=== PATIENT | female | born 1945 | race Two or more races ===

== ENCOUNTER 2017-10-27 07:54 | Emergency (ER) | payer OTHER ==
[2017-10-27 08:11] VITALS: BP 111/65; PULSE 70; TEMP 98.1; BMI 29.2
[2017-10-27] MEDS ORDERED: ALBUTEROL SO4 0.083% IH SOL 2.5 MG/3 ML VIAL.NEB. NEB ONE ×2 (08:53→08:58)
--- NOTE | 2017-10-27 09:00 | PDOC ---
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 no chest pain no SOB. Timing/Duration: reports: week Severity: reports: moderate Past History - Past Medical History Allergies/Adverse Reactions: Allergies Allergy/AdvReac Type Severity Reaction Status Date / Time Sulfa (Sulfonamide Allergy Verified 10/27/17 08:04 Antibiotics) Home Medications: Ambulatory Orders Apixaban [Eliquis] 5 mg PO BID 12/18/15 Calcium Carbonate/Vitamin D3 [Calcium + Vitamin D Tablet] 1 each PO DAILY Cetirizine HCl [Zyrtec -] 10 mg PO PRN 12/18/15 Esomeprazole Magnesium [Nexium] 40 mg PO DAILY 12/18/15 Folic Acid 1 mg PO DAILY 12/18/15 Linaclotide [Linzess] 290 mcg PO DAILY 12/18/15 Metformin HCl 500 mg PO ACDIN 12/18/15 Metoprolol Succinate [Toprol Xl -] 50 mg PO DAILY 12/18/15 Pregabalin [Lyrica -] 225 mg PO BID 12/18/15 Solifenacin Succinate [Vesicare -] 10 mg PO DAILY 12/18/15 Valsartan/Hydrochlorothiazide [Valsartan-Hctz 160-12.5 mg Tab] 1 each PO DAILY 12/18/15 Ascorbic Acid [Vitamin C] 250 mg PO DAILY 01/23/16 Simvastatin 40 mg PO HS 01/23/16 Albuterol Sulfate Inhaler - [Ventolin HFA Inhaler -] 1 - 2 inh PO Q4H #1 inhaler 10/27/17 Anemia: No Cardiac Disorders: Yes (afib) COPD: No Diabetes: Yes Disorders: Yes HTN: Yes Hypercholesterolemia: Yes - Surgical History Cholecystectomy: Yes Orthopedic Surgery: Yes (SHOULDER SX RIGHT) - Immunization History Immunization Up to Date: Yes - Suicide/Smoking/Psychosocial Hx Smoking History: Never smoked Have you smoked in the past 12 months: No Information on smoking cessation initiated: No Hx Alcohol Use: No Drug/Substance Use Hx: No Substance Use Type: None Respiratory Specific PMHX - Complaint Specific PMHX Angina: No Bronchitis: No Pneumonia: No Pulmonary Embolus: No TB (Tuberculosis): No Review of Systems - Review of Systems Able to Perform ROS?: Yes Is the patient limited Honduran proficient: No Constitutional: No: Symptoms Reported HEENTM: Yes: Symptoms Reported, Throat Pain Respiratory: Yes: Symptoms reported, Cough *Physical Exam - Vital Signs Last Vital Signs Temp Pulse Resp BP Pulse Ox 98.1 F 70 20 111/65 95 10/27/17 08:04 10/27/17 08:04 10/27/17 08:04 10/27/17 08:04 10/27/17 08:04 - Physical Exam General Appearance: Yes: Nourished, Appropriately Dressed HEENT: positive: EOMI, ALE, TMs Normal, Pharynx Normal. negative: Scleral Icterus (L), Pharyngeal Erythema, Tonsillar Exudate, Tonsillar Erythema, Nasal Congestion Neck: positive: Supple Respiratory/Chest: positive: Lungs Clear, Normal Breath Sounds. negative: Decreased Breath Sounds, Crackles, Rales, Rhonchi, Stridor, Wheezing, Hyperresonant, Dullness Cardiovascular: positive: Regular Rhythm, Regular Rate Gastrointestinal/Abdominal: positive: Normal Bowel Sounds, Soft Musculoskeletal: positive: Normal Inspection Extremity: positive: Normal Capillary Refill, Normal Inspection, Normal Range of Motion Integumentary: positive: Normal Color, Dry, Warm Neurologic: positive: Fully Oriented, Alert, Normal Mood/Affect, Normal Response , Motor Strength 5/5 ED Treatment Course - RADIOLOGY Radiology Studies Ordered: Category Date Time Status CHEST PA & LAT [RAD] Stat Radiology 10/27/17 08:26 Ordered Medical Decision Making - Medical Decision Making 10/27/17 08:58 cc: cough for one week not improving with OTC meds pt called her PMD yesterday and she phoned in a Zpack which pt took first dose yesterday pt states the cough is worse at night and is having thick phlegm no acute distress, stable vitals with pulse ox 95 will get cxr to r/o pneumonia r/o CHF *DC/Admit/Observation/Transfer Diagnosis at time of Disposition: Viral upper respiratory tract infection with cough - Discharge Dispostion Disposition: HOME Condition at time of disposition: Good - Prescriptions Prescriptions: Albuterol Sulfate Inhaler - [Ventolin HFA Inhaler -] 1 - 2 inh PO Q4H #1 inhaler - Referrals Referrals: ON STAFF,NOT [Primary Care Provider] - - Patient Instructions Additional Instructions: use the inhaler as directed for coughing tea with honey and lemon lots of fluids to drink follow up with your doctor in 2-3 days Return to ER for any worsening symptoms use the inhaler as directed for coughing tea with honey and lemon lots of fluids to drink follow up with your doctor in 2-3 days Return to ER for any worsening symptoms - Post Discharge Activity
== END 2017-10-27 09:39 | disposition home or self-care (01) ==
LOC: JERFT 07:54
PROC: 3E0F7GC Introduction of Other Therapeutic Substance into Respiratory Tract, Via Natural or Artificial Opening (ICD-10-PCS; principal; 2017-10-27)
DX: J06.9 Acute upper respiratory infection, unspecified (principal); B97.89 Other viral agents as the cause of diseases classified elsewhere; I10 Essential (primary) hypertension; E11.9 Type 2 diabetes mellitus without complications; Z79.4 Long term (current) use of insulin; Z79.84 Long term (current) use of oral hypoglycemic drugs; I48.91 Unspecified atrial fibrillation; Z79.01 Long term (current) use of anticoagulants
CPT/HCPCS: 71046-TC-FY; 99281-25

== ENCOUNTER 2018-07-15 19:56 | Emergency (ER) | payer OTHER ==
[2018-07-15 20:22] VITALS: BP 144/65; PULSE 70; TEMP 99; BMI 32.5
--- NOTE | 2018-07-15 20:23 | PDOC ---
Rapid Medical Evaluation Chief Complaint: Respiratory Time Seen by Provider: 07/15/18 20:18 Medical Evaluation: Allergies Allergy/AdvReac Type Severity Reaction Status Date / Time Sulfa (Sulfonamide Allergy Verified 10/27/17 08:04 Antibiotics) 07/15/18 20:19 c/o cough and chest pain x 2 weeks. denies fever/ chills breath sounds clear, regular rate hx: DM, htn, A: cough P: chest xray patient to the ER for further management of care. Discharge Disposition - Diagnosis URI (upper respiratory infection) Qualifiers: URI type: unspecified URI Qualified Code(s): J06.9 - Acute upper respiratory infection, unspecified - Referrals - Patient Instructions - Post Discharge Activity
[2018-07-15] MEDS ORDERED: ALBUTEROL SO4 2.5/IPRATROPIUM 0.5 INH SOL 3 ML VIAL.NEB. NEB ONE ×2 (21:02→21:06)
--- NOTE | 2018-07-15 21:06 | PDOC ---
History of Present Illness - General Chief Complaint: Respiratory Stated Complaint: Cold Symptoms Time Seen by Provider: 07/15/18 20:18 History Source: Patient Exam Limitations: No Limitations - History of Present Illness Initial Comments: 07/15/18 21:03 c/o cough phlegm in throat for 1-2 weeks no fever no chills no chest pain, no history of asthma history of DM< pacemaker, HTN Timing/Duration: reports: constant (2 weeks cough ) Severity: reports: moderate Past History - Past Medical History Allergies/Adverse Reactions: Allergies Allergy/AdvReac Type Severity Reaction Status Date / Time Sulfa (Sulfonamide Allergy Verified 10/27/17 08:04 Antibiotics) Home Medications: Ambulatory Orders Apixaban [Eliquis] 5 mg PO BID 12/18/15 Calcium Carbonate/Vitamin D3 [Calcium + Vitamin D Tablet] 1 each PO DAILY Cetirizine HCl [Zyrtec -] 10 mg PO PRN 12/18/15 Esomeprazole Magnesium [Nexium] 40 mg PO DAILY 12/18/15 Folic Acid 1 mg PO DAILY 12/18/15 Linaclotide [Linzess] 290 mcg PO DAILY 12/18/15 Metoprolol Succinate [Toprol Xl -] 50 mg PO DAILY 12/18/15 Pregabalin [Lyrica -] 225 mg PO BID 12/18/15 Solifenacin Succinate [Vesicare -] 10 mg PO DAILY 12/18/15 Valsartan/Hydrochlorothiazide [Valsartan-Hctz 160-12.5 mg Tab] 1 each PO DAILY 12/18/15 metFORMIN HCL [Metformin HCl] 500 mg PO ACDIN 12/18/15 Ascorbic Acid [Vitamin C] 250 mg PO DAILY 01/23/16 Simvastatin 40 mg PO HS 01/23/16 Albuterol Sulfate Inhaler - [Ventolin HFA Inhaler -] 1 - 2 inh PO Q4H #1 inhaler 10/27/17 levoFLOXacin [Levaquin -] 500 mg PO DAILY #7 tablet 07/15/18 Anemia: No Cardiac Disorders: Yes (afib) COPD: No Diabetes: Yes Disorders: Yes HTN: Yes Hypercholesterolemia: Yes - Surgical History Cholecystectomy: Yes Orthopedic Surgery: Yes (SHOULDER SX RIGHT) - Immunization History Immunization Up to Date: Yes - Suicide/Smoking/Psychosocial Hx Smoking History: Never smoked Have you smoked in the past 12 months: No Information on smoking cessation initiated: No Hx Alcohol Use: No Drug/Substance Use Hx: No Substance Use Type: None Respiratory Specific PMHX - Complaint Specific PMHX Angina: No Bronchitis: No Pneumonia: No Pulmonary Embolus: No TB (Tuberculosis): No Review of Systems - Review of Systems Able to Perform ROS?: Yes Is the patient limited Malay proficient: Yes Constitutional: No: Symptoms Reported HEENTM: Yes: Other (post nasal drip ). No: Symptoms Reported Respiratory: Yes: Symptoms reported, Cough, Productive cough. No: Wheezing Cardiac (ROS): No: Symptoms Reported *Physical Exam - Vital Signs Last Vital Signs Temp Pulse Resp BP Pulse Ox 99.0 F 70 18 144/65 97 07/15/18 20:20 07/15/18 20:20 07/15/18 20:20 07/15/18 20:20 07/15/18 20:20 - Physical Exam General Appearance: Yes: Nourished, Appropriately Dressed HEENT: positive: EOMI, ALE, Normal ENT Inspection, TMs Normal, Pharynx Normal Neck: positive: Supple. negative: Tender Respiratory/Chest: positive: Decreased Breath Sounds. negative: Chest Tender, Respiratory Distress, Wheezing Cardiovascular: positive: Regular Rhythm, Regular Rate Musculoskeletal: positive: Normal Inspection Extremity: positive: Normal Capillary Refill, Normal Inspection, Normal Range of Motion Integumentary: positive: Normal Color, Dry, Warm Neurologic: positive: associate doctor II-XII NML intact, Fully Oriented, Alert, Normal Mood/ Affect, Normal Response, Motor Strength 5/5 Medical Decision Making - Medical Decision Making 07/15/18 21:04 cc: cough 2 weeks using otc cough medicine and albuterol pump no relief feels thick phlegm in back of throat pt not improving after the albuterol pump pt is speaking full sentences no diff speaking pt has history of DM, pacemaker denies chest pain will give duoneb 07/15/18 22:11 pt improved after the nebulizer. 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 pt satisfied with care all questions asked and answered, pt stable for discharge. 07/18/18 08:50 *DC/Admit/Observation/Transfer Diagnosis at time of Disposition: URI (upper respiratory infection) Qualifiers: URI type: unspecified URI Qualified Code(s): J06.9 - Acute upper respiratory infection, unspecified - Discharge Dispostion Disposition: HOME Condition at time of disposition: Good - Prescriptions Prescriptions: levoFLOXacin [Levaquin -] 500 mg PO DAILY #7 tablet - Referrals - Patient Instructions Printed Discharge Instructions: DI for Acute Bronchitis Additional Instructions: take the antibiotic Levaquin as directed continue the pump every 4hrs follow with your doctor on Wednesday for follow up return to ER if any worsening symptoms drink pleanty of water - Post Discharge Activity
== END 2018-07-15 22:14 | disposition home or self-care (01) ==
LOC: JERFT 19:56
PROC: 3E0F7GC Introduction of Other Therapeutic Substance into Respiratory Tract, Via Natural or Artificial Opening (ICD-10-PCS; principal; 2018-07-15)
DX: J06.9 Acute upper respiratory infection, unspecified (principal); I10 Essential (primary) hypertension; E11.9 Type 2 diabetes mellitus without complications; Z79.84 Long term (current) use of oral hypoglycemic drugs; I48.91 Unspecified atrial fibrillation; Z79.01 Long term (current) use of anticoagulants
CPT/HCPCS: 71046-TC-FY; 94640; 99281-25

== ENCOUNTER 2018-07-29 01:01 | Observation (INO) | payer OTHER ==
[2018-07-29] MEDS ORDERED: MAG HYDROX/AL HYDROX/SIMETH 30 ML UNIT-DOSE CUP PO ONE (01:24)
[2018-07-29] MEDS ORDERED: FAMOTIDINE 20 MG/50 ML IVPB 20 MG/50 ML MG IVPB ONE ×2 (01:24→01:44)
--- NOTE | 2018-07-29 01:28 | PDOC ---
History of Present Illness - General History Source: Patient Exam Limitations: Language Barrier ([employer] Worker used) - History of Present Illness Initial Comments: 73 y/o F hx of HTN, HLD, DM, afib s/p PPM (on Eliquis), cholecystectomy (around 12 years ago), hysterectomy 1996, prior L shoulder surgery presents with epigastric pain radiating to chest that started 2 hours ago as she was about to take her meds. States she feels a bit bloated; took Naa [place] prior to coming and currently feels a bit better than before. Denies ever having this type of pain before; denies intake of large meal recently. +Nausea. Denies fever , chills, cough, sob, vomiting, diarrhea, black/bloody stools, urinary complaints. Has chronic constipation for which she takes Metamucil. Denies smoking, alcohol or drug use. Denies history of [place] or CAD. 07/29/18 01:27 <Desirae Mena - Last Filed: 07/29/18 03:32> <Kaylan Ferrell - Last Filed: 07/29/18 05:02> - General Chief Complaint: Chest Pain Stated Complaint: CHEST PAIN Time Seen by Provider: 07/29/18 01:06 Past History - Past Medical History Anemia: No Cardiac Disorders: Yes (afib) COPD: No Diabetes: Yes Disorders: Yes HTN: Yes Hypercholesterolemia: Yes - Surgical History Cholecystectomy: Yes Orthopedic Surgery: Yes (SHOULDER SX Left) Other Surgical History: Hysterectomy 07/29/18 01:34 - Immunization History Immunization Up to Date: Yes - Suicide/Smoking/Psychosocial Hx Smoking History: Never smoked Have you smoked in the past 12 months: No Information on smoking cessation initiated: No Hx Alcohol Use: No Drug/Substance Use Hx: No Substance Use Type: None <Desirae Mena - Last Filed: 07/29/18 03:32> <Kaylan Ferrell - Last Filed: 07/29/18 05:02> - Past Medical History Allergies/Adverse Reactions: Allergies Allergy/AdvReac Type Severity Reaction Status Date / Time Sulfa (Sulfonamide Allergy Verified 07/29/18 01:20 Antibiotics) Home Medications: Ambulatory Orders Apixaban [Eliquis] 5 mg PO BID 12/18/15 Calcium Carbonate/Vitamin D3 [Calcium + Vitamin D Tablet] 1 each PO DAILY Cetirizine HCl [Zyrtec -] 10 mg PO PRN 12/18/15 Esomeprazole Magnesium [Nexium] 40 mg PO DAILY 12/18/15 Folic Acid 1 mg PO DAILY 12/18/15 Linaclotide [Linzess] 290 mcg PO DAILY 12/18/15 Metoprolol Succinate [Toprol Xl -] 50 mg PO DAILY 12/18/15 Pregabalin [Lyrica -] 225 mg PO BID 12/18/15 Solifenacin Succinate [Vesicare -] 10 mg PO DAILY 12/18/15 Valsartan/Hydrochlorothiazide [Valsartan-Hctz 160-12.5 mg Tab] 1 each PO DAILY 12/18/15 metFORMIN HCL [Metformin HCl] 500 mg PO ACDIN 12/18/15 Ascorbic Acid [Vitamin C] 250 mg PO DAILY 01/23/16 Simvastatin 40 mg PO HS 01/23/16 Albuterol Sulfate Inhaler - [Ventolin HFA Inhaler -] 1 - 2 inh PO Q4H #1 inhaler 10/27/17 levoFLOXacin [Levaquin -] 500 mg PO DAILY #7 tablet 07/15/18 Review of Systems - Review of Systems Comments:: See HPI 07/29/18 01:34 <Desirae Mena - Last Filed: 07/29/18 03:32> *Physical Exam - Vital Signs Last Vital Signs Temp Pulse Resp BP Pulse Ox 98.0 F 70 20 154/81 98 07/29/18 01:05 07/29/18 01:05 07/29/18 01:05 07/29/18 01:05 07/29/18 01:05 - Physical Exam General Appearance: No: Apparent Distress Respiratory/Chest: positive: Lungs Clear, Normal Breath Sounds. negative: Respiratory Distress Cardiovascular: positive: Regular Rhythm, Regular Rate, S1, S2. negative: Murmur Gastrointestinal/Abdominal: positive: Normal Bowel Sounds, Tender (Mild TTP along epigastric region), Soft, Other (Negative Cruz's Sign). negative: Increased Bowel Sounds, Decreased BS, Distended, Guarding, Rebound Extremity: positive: Normal Inspection. negative: Pedal Edema, Calf Tenderness Neurologic: positive: Fully Oriented, Alert, Normal Mood/Affect <Desirae Mena - Last Filed: 07/29/18 03:32> - Vital Signs Last Vital Signs Temp Pulse Resp BP Pulse Ox 98.0 F 70 20 154/81 98 07/29/18 01:05 07/29/18 01:05 07/29/18 01:05 07/29/18 01:05 07/29/18 01:05 <Kaylan Ferrell - Last Filed: 07/29/18 05:02> Heart Score/ECG Review - History History: Moderately suspicious - Electrocardiogram EKG: Normal - Age Age: >/= 65 - Risk Factors Risk Factors Heart Score: Yes Hx Hypercholesterolemia, Yes Hx Hypertension, Yes Hx Diabetes Based on the list above the patient has:: >/=3 risk factors or Hx atherosclerotic disease - Troponin Troponin: </= normal limit - Score Heart Score - Total: 5 #1 Atrial paced rhythm at 70 bpm, TWI lead III (seen in prior EKG 12/2010) 07/29/18 01:54 <Desirae Mena - Last Filed: 07/29/18 03:32> ED Treatment Course - LABORATORY CBC & Chemistry Diagram: 07/29/18 02:05 07/29/18 02:05 - RADIOLOGY Radiology Studies Ordered: Category Date Time Status CHEST PA & LAT [RAD] Stat Radiology 07/29/18 01:24 Ordered <Desirae Mena - Last Filed: 07/29/18 03:32> - LABORATORY CBC & Chemistry Diagram: 07/29/18 02:05 07/29/18 02:05 - Medications Given in the ED: ED Medications Discontinued Medications Generic Name Dose Route Start Last Admin Trade Name Yvonne PRN Reason Stop Dose Admin Al Hydroxide/Mg Hydroxide 30 ml 07/29/18 01:24 07/29/18 01:52 Mylanta Oral Suspension - PO 07/29/18 01:25 30 ml ONCE ONE Administration Famotidine/Sodium Chloride 20 mg in 50 mls @ 100 mls/hr 07/29/18 01:24 01:52 Pepcid 20 Mg Premixed Ivpb - IVPB 07/29/18 01:53 100 mls/hr ONCE ONE Administration Ondansetron HCl 4 mg 07/29/18 01:41 07/29/18 01:56 Zofran Injection IVPUSH 07/29/18 01:42 4 mg ONCE ONE Administration <Kaylan Ferrell - Last Filed: 07/29/18 05:02> Medical Decision Making - Medical Decision Making 73 y/o F hx of HTN, HLD, DM, afib s/p PPM (on Eliquis), cholecystectomy ( around 12 years ago), hysterectomy 1996, prior L shoulder surgery presents with epigastric pain radiating to chest x 2 hours. Differential to consider: ACS, gastritis, GERD, cholecystitis (though unlikely given hx of cholecystectomy), pancreatitis, PNA (less likely given no fever, cough or other URI sxs) Plan: CBC, CMP, lipase, trop, EKG, CXR, Pepcid, Maalox, Zofran Patient with significant co-morbidities; will likely need observation for r/o ACS 07/29/18 01:27 Abnormal Lab Results 07/29/18 02:05 Carbon Dioxide 33 H Anion Gap 7 L BUN 24 H AST 61 H Lab work unremarkable with trop x1 neg CXR with no acute findings Patient with heart score of 5 Will admit as observation to r/o ACS Plan of care discussed with patient 07/29/18 03:28 <Desirae Mena - Last Filed: 07/29/18 03:32> - Medical Decision Making The patient was seen and evaluated in conjunction with midlevel provider under my direct supervision, ancillary studies were reviewed. 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 vitals wnl, labs and lytes wnl Trop_negative initially, will need to trend serially since onset of sx <3 hours ECG NSR, with unchanged nonspecific T wave abnormalities in inferolateral leads. no elevations or interval abnormalities heart score 5, in moderate risk category with estimated MACE 14-16% at 30 days. due to atypical nature, risk factors and comorbidities, will admit to observation telemetry for r/o acs and continued medical management. given GI cocktail w/o effect. IVF and ASA . 07/29/18 02:05 07/29/18 03:06 07/29/18 05:02 <Kaylan Ferrell - Last Filed: 07/29/18 05:02> *DC/Admit/Observation/Transfer - Discharge Dispostion Decision to Admit order: Yes <Desirae Mean - Last Filed: 07/29/18 03:32> <Kaylan Ferrell - Last Filed: 07/29/18 05:02> Diagnosis at time of Disposition: Chest pain in adult
[2018-07-29 01:38] VITALS: BMI 30.5
[2018-07-29] MEDS ORDERED: ONDANSETRON 4 MG/2 ML VIAL IVPUSH ONE (01:41)
[2018-07-29] MEDS ORDERED: MAG HYDROX/AL HYDROX/SIMETH 30 ML UNIT-DOSE CUP ONE (01:45)
[2018-07-29] MEDS ORDERED: ONDANSETRON 4 MG/2 ML VIAL ONE (01:53)
[2018-07-29 02:15] LABS: BASO % 0.5 % (0-2.0); EOS % 0.7 % (0-4.5); HEMOGLOBIN 13.7 GM/dL (10.7-15.3); LYMPH % 14.4 % (8-40); MCH 27.1 pg (25.7-33.7); MCHC 32.5 g/dl (32.0-36.0); MEAN CELL VOLUME 83.2 fl (80-96); MEAN PLT VOLUME 9.7 fl (7.5-11.1); MONO % 9.5 % (3.8-10.2); NEUT % 74.9 % (42.8-82.8); PLATELET COUNT 190 K/MM3 (134-434); RBC 5.05 M/mm3 (3.60-5.2); RDW 15.2 % (11.6-15.6); WHITE BLOOD COUNT 9.4 K/mm3 (4.0-10.0)
[2018-07-29 02:48] LABS: ALK PHOS 98 U/L (45-117); ANION GAP 7 MMOL/L (8-16); BILIRUBIN,TOTAL 0.4 mg/dL (0.2-1); BLOOD UREA NITROGEN 24 mg/dL (7-18); CALCIUM 9.2 mg/dL (8.5-10.1); CHLORIDE 100 mmol/L (98-107); CO2 33 mmol/L (21-32); CREATININE 0.8 mg/dL (0.55-1.3); GLUCOSE,RANDOM 100 mg/dL (74-106); POTASSIUM 4.2 mmol/L (3.5-5.1); SGOT/AST 61 U/L (15-37); SGPT/ALT 37 U/L (13-61); SODIUM 140 mmol/L (136-145); TOT PROT 7.9 g/dl (6.4-8.2)
[2018-07-29] MEDS ORDERED: ASPIRIN 325 MG TABLET PO ONE (03:00)
[2018-07-29] MEDS ORDERED: SODIUM CHLORIDE 0.9% 500 ML INFUS.BAG IV ONE (03:01)
[2018-07-29] MEDS ORDERED: ASPIRIN 325 MG TABLET ONE (03:04)
[2018-07-29] MEDS ORDERED: ASPIRIN COATED 81 MG TABLET.EC ONE (03:11)
[2018-07-29] MEDS ORDERED: ASPIRIN 81 MG CHEWABLE TABLETS PO ONE (03:52)
--- NOTE | 2018-07-29 04:53 | HP ---
CHIEF COMPLAINT: Epigastric/Chest pain x 1 day PCP: Dr Meryl Luevano (PCP and cardiol)- [phone] [facility] [place] [facility] [place] Add: [address] ([address] [facility] [address]) Dr Karen Leach- [phone] [facility] HISTORY OF PRESENT ILLNESS: Pt is a 73 y/o Somali speaking F with PMhx of HTN, HLD, DM, ventricular arrythmia, afib s/p PPM (on Eliquis),anxiety, allergic rhinitis, cholecystectomy (around 12 years ago), hysterectomy 1996, prior L shoulder surgery presenting with epigastric pain radiating to chest and back for one day. Pt describes the pain as 10/0 severe, constant, radiating from upper abdomen to chest and back with associated warmth, she used a hand fan to cool herself. The pain started at rest, while she was sitting down taking her medicines and worsened as she walked to the bathroom. The pain lasted half an hour, is not reproducible and it was mildly relieved with colt seltzer at home, but in the the ambulance she received antacid that started to improve the pain. Pt reports that the pain resolved after she received medication in the ED. No fevers, no diaphoresis No nausea/vomiting, no diarrhea, but pt has chronic constipation secondary to hemorrhoids. Pt reports she has not had similar pain in past, but got a PPM put in 8years ago by cardiol ( Dr Luevano) for arrythmias (afib). No CAD, no CABG. She reports having done a stress test about 3 months ago at [facility] with normal results (on calling the PCP's office, her last stress test was 2015). She is able to walk up to 3 blocks before she becomes short of breath or has bilateral tingling in both feet. No syncope or dizziness. She has chronic 2 pillow orthopnea, with worsening dyspnea on exertion and cough productive of whitish sputum. She reports bilateral leg swellings Pt reports being compliant on all her medications although she did not have a list on her. Pt has been diagnosed with a likely gastritis in the past for which she uses nexium but does not recall getting antibiotic treatment for a peptic ulcer. She said she had both endoscopy and colonoscopy with her GI 3 years ago with colonoscopy being normal. No family history of malignancies Pt complained in the ED of increased anxiety and was requesting anxiolytics. ER course was notable for: (1) ASA, GI cocktail, lipase- 223 (2)negative trop x1, (3) EKG- Atrial paced-70bpm, MS-212, Qtc-451,no JEAN-PAUL/STD (similar to prior) Recent Travel: PAST MEDICAL HISTORY: HTN, HLD, DM, afib s/p PPM (on Eliquis) PAST SURGICAL HISTORY: cholecystectomy (around 12 years ago), hysterectomy 1996, prior L shoulder surgery, urologic procedure Social History: Independent ADLS but with a home health aide. Walks without a walker Lives at home with . 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 Smoking:Denies Alcohol:Denies Drugs: Denies Family History: Sister of DM in her 60s, mother of unknown weakness at 67, father at 100 Allergies Sulfa (Sulfonamide Antibiotics) Allergy (Verified 07/29/18 01:20) HOME MEDICATIONS: Home Medications Medication Instructions Recorded Apixaban [Eliquis] 5 mg PO BID 12/18/15 Calcium Carbonate/Vitamin D3 1 each PO DAILY 12/18/15 [Calcium + Vitamin D Tablet] Cetirizine HCl [Zyrtec -] 10 mg PO PRN 12/18/15 Esomeprazole Magnesium [Nexium] 40 mg PO DAILY 12/18/15 Folic Acid 1 mg PO DAILY 12/18/15 Linaclotide [Linzess] 290 mcg PO DAILY 12/18/15 Metoprolol Succinate [Toprol Xl -] 50 mg PO DAILY 12/18/15 Pregabalin [Lyrica -] 225 mg PO BID 12/18/15 Solifenacin Succinate [Vesicare -] 10 mg PO DAILY 12/18/15 Valsartan/Hydrochlorothiazide 1 each PO DAILY 12/18/15 [Valsartan-Hctz 160-12.5 mg Tab] metFORMIN HCL [Metformin HCl] 500 mg PO ACDIN 12/18/15 Ascorbic Acid [Vitamin C] 250 mg PO DAILY 01/23/16 Simvastatin 40 mg PO HS 01/23/16 Albuterol Sulfate Inhaler - 1 - 2 inh PO Q4H #1 inhaler 10/27/17 [Ventolin HFA Inhaler -] levoFLOXacin [Levaquin -] 500 mg PO DAILY #7 tablet 07/15/18 REVIEW OF SYSTEMS CONSTITUTIONAL: Absent: fever, chills, diaphoresis, generalized weakness, malaise, loss of appetite, weight change HEENT: Absent: rhinorrhea, nasal congestion, throat pain, throat swelling, difficulty swallowing, mouth swelling, ear pain, eye pain, visual changes CARDIOVASCULAR: Absent: chest pain, syncope, palpitations, irregular heart rate, lightheadedness , peripheral edema RESPIRATORY: Absent: cough, shortness of breath+, dyspnea with exertion+, orthopnea+, wheezing, stridor, hemoptysis GASTROINTESTINAL: Absent: abdominal pain+, abdominal distension, nausea, vomiting, diarrhea, constipation+, melena, hematochezia GENITOURINARY: Absent: dysuria, frequency, urgency, hesitancy, hematuria, flank pain, genital pain MUSCULOSKELETAL: Absent: myalgia, arthralgia, joint swelling, back pain+, neck pain SKIN: Absent: rash, itching, pallor HEMATOLOGIC/IMMUNOLOGIC: Absent: easy bleeding, easy bruising, lymphadenopathy, frequent infections ENDOCRINE: Absent: unexplained weight gain, unexplained weight loss, heat intolerance, cold intolerance NEUROLOGIC: Absent: headache, focal weakness or paresthesias, dizziness, unsteady gait, seizure, mental status changes, bladder or bowel incontinence PSYCHIATRIC: Absent: anxiety, depression, suicidal or homicidal ideation, hallucinations. PHYSICAL EXAMINATION Vital Signs - 24 hr 07/29/18 01:05 Temperature 98.0 F Pulse Rate 70 Respiratory 20 Rate Blood Pressure 154/81 O2 Sat by Pulse 98 Oximetry (%) GENERAL: Obese female, Awake, alert, and fully oriented, in no acute repiratory or painful distress. HEAD: Normal with no signs of trauma. EYES: Pupils equal, round and reactive to light, EARS, NOSE, THROAT: Moist mucous membranes. NECK: Normal range of motion, supple without lymphadenopathy LUNGS: Breath sounds equal, clear to auscultation bilaterally. No wheezes, and no crackles. HEART: Regular rate and rhythm, normal S1 and S2 without murmur, rub or gallop. ABDOMEN: Soft, nontender, not distended, normoactive bowel sounds, no guarding, no rebound, no masses. Questionable positive murphys sign, epigastric tenderness MUSCULOSKELETAL: Normal range of motion at all joints. No bony deformities or tenderness. No CVA tenderness. LOWER EXTREMITIES: 2+ pulses, warm, well-perfused. No calf tenderness. No peripheral edema. NEUROLOGICAL: Symmetrical face. Extension and flexion, abduction and adduction 5/5. b/l UEs. Hip and knee flexion and extension 5/5 b/lCranial nerves II-XII intact. Normal speech. Normal gait. CBC, BMP 07/29/18 02:05 Laboratory Results - last 24 hr 07/29/18 07/29/18 07/29/18 02:05 02:05 02:05 WBC 9.4 RBC 5.05 Hgb 13.7 Hct 42.0 MCV 83.2 MCH 27.1 MCHC 32.5 RDW 15.2 Plt Count 190 MPV 9.7 Absolute Neuts (auto) 7.0 Neutrophils % 74.9 Lymphocytes % 14.4 Monocytes % 9.5 Eosinophils % 0.7 Basophils % 0.5 Nucleated RBC % 0 Sodium 140 Potassium 4.2 Chloride 100 Carbon Dioxide 33 H Anion Gap 7 L BUN 24 H Creatinine 0.8 Creat Clearance w eGFR > 60 Random Glucose 100 Calcium 9.2 Total Bilirubin 0.4 AST 61 H ALT 37 Alkaline Phosphatase 98 Troponin I < 0.02 Total Protein 7.9 Albumin 4.0 Lipase 223 ASSESSMENT/PLAN: Pt is a 73 y/o Somali speaking F with PMhx of HTN, HLD, DM, afib s/p PPM (on Eliquis), cholecystectomy (around 12 years ago), hysterectomy 1996, prior L shoulder surgery presenting with epigastric pain radiating to chest and back for one day. Atypical chest pain could be unstable angina Patient with significant risk factors, Dual PPM Pt had reported recent stress test with Hydrogeology Professor-Likely nl per pt (PCP said last stress test was 3 years ago), Consider outpt stress test if ACS ruled out Heart score -4 Retrieve records from landfill gas technician- information on top Med rec ASA, ECHO, EKG, trend trops, Statins, [id number] Cont toprol 50 daily Consider cardiology consult although pt follows with own cardiol Please confoirm meds in am (tried twice overnight)- Contacted her PCP's office eventaully to Med rec her Epigastric pain Hx of likely gastritis in past s/p cholecystectomy, isolated elevated alk ph Follow up US R/o acalculus cholecystitis- pt appears stable Hx of gastritis Follow up GI doctor Iv protonix HTN Cont [id number] Cont toprol 50 daily HLD Pt appears to use simvastatin at home Cont atorvastatin DM Hold metformin ISS ACHS BGM Achs Ventricular arrythmias/ afib s/p dual chamber PPM (on Eliquis) Rate controlled, dual paced Card unavailable for interrogation- could follow Reported anxiety Consider anxiolytic PCPs office did not have a prescribed anxiolytic documented for pt FEN S/p 1L NS in ED, hold fluids, follow ECHO Monitor lytes, replete as needed NPO for now, consider stress test PPx On eliquis Dispo Tele obs Visit type - Emergency Visit Emergency Visit: Yes ED Registration Date: 07/29/18 Care time: The patient presented to the Emergency Department on the above date and was hospitalized for further evaluation of their emergent condition. - New Patient This patient is new to me today: Yes Date on this admission: 07/29/18 - Critical Care Critical Care patient: No
[2018-07-29] MEDS ORDERED: PANTOPRAZOLE 40 MG TABLET (FP) PO SCH (06:40)
--- NOTE | 2018-07-29 06:46 | PN ---
Teaching Attending Note Name of Resident: Tatiana Ann ATTENDING PHYSICIAN STATEMENT I saw and evaluated the patient. I reviewed the resident's note and discussed the case with the resident. I agree with the resident's findings and plan as documented. SUBJECTIVE: Patient is a 73 y/o HF with a PMH significant for Afib on eliquis/toprol s/p atrial PM followed by CV in [place] (obtaining old recs), HTN. HLD, NIDDM. She presents to the ER with 1 day of epigastric pain radiating to her chest in back that started at rest. Not made better or worse with anything when she was at home (she tried colt-seltzer). She did get relief from antacid administered by EMS. She is tender in her abdomen and some sternal pain (mild) present to palpation when we saw her in ER. Labs are essentially unremarkable with only mild elevation of a transaminase and negative initial trop; EKG only shows atrial paced rhythm without ST-T changes. She is chest pain free when we saw her but did have intermittent epigastric pain while in ER. Will admit to telemetry for R/O ACS. She tells me thats he had a negative stress test ~3 months ago. As stated we need records 10 sys ROS done and negative aside from HPI PMH and PSH per chart; significant for what was discussed alongside cholecystectomy FH asked and noncontributory Socially denies EtOH and tobacco abuse OBJECTIVE: Labs, imaging, EKG reviewed NAD, AAOx3, resting in bed Reproducible sternal pain; RRR s1/2. Atrially paced on monitor Lungs CTAB with sym exp Skin warm and dry with no abrasions or rashes RUQ tender to palpation; nondistended ASSESSMENT AND PLAN: Ms. Cooper is a 73 y/o female with atypical chest/epigatric pain but has risk factors. 1) Atypical Chest Pain vs. epigastric pain -Trend trops, monitor on tele, check TSH/A1c/Lipids. Check echo to r/o WMAs -Obtain old records from CV office. If she indeed had a negative stress 3 months ago and is compliant with her eliquis this argues against ACS, but it is still possible. Can consider consulting her CV if needed. For the RUQ/ epigstric pain only mild AST elevation but positive exam. Will r/o acalculous cholecystitis and followup RUQ us. -Continue home meds 2) HTN -Continue home meds; goal <160 inpt and GDMT OP 3) HLD -Check lipids; continue home statin. Can switch to atorva or crestor if true ACS. 4) OAB -Continue vesicare 5) AFib with RVR -Atrially paced rhythm; continue eliquis, metoprolol Full Code
[2018-07-29] MEDS ORDERED: PANTOPRAZOLE 40 MG TABLET (FP) ONE (07:35)
[2018-07-29] MEDS: INSULIN SLIDING SCALE (NOVOLOG) 1 VIAL SQ SCH ×3 (07:45→18:45)
[2018-07-29 07:56] LABS: BASO % 0.6 % (0-2.0); HEMATOCRIT 36.1 % (32.4-45.2); HEMOGLOBIN 11.5 GM/dL (10.7-15.3); LYMPH % 21.3 % (8-40); MCH 26.6 pg (25.7-33.7); MCHC 31.7 g/dl (32.0-36.0); MEAN CELL VOLUME 83.8 fl (80-96); MEAN PLT VOLUME 9.5 fl (7.5-11.1); MONO % 12.8 % (3.8-10.2); NEUT % 64.3 % (42.8-82.8); PLATELET COUNT 162 K/MM3 (134-434); RBC 4.31 M/mm3 (3.60-5.2); RDW 15.1 % (11.6-15.6); WHITE BLOOD COUNT 8.5 K/mm3 (4.0-10.0)
[2018-07-29 08:30] LABS: ALBUMIN 3.3 g/dl (3.4-5.0); ALK PHOS 88 U/L (45-117); ANION GAP 8 MMOL/L (8-16); BILIRUBIN,TOTAL 0.4 mg/dL (0.2-1); BLOOD UREA NITROGEN 20 mg/dL (7-18); CALCIUM 8.4 mg/dL (8.5-10.1); CHLORIDE 109 mmol/L (98-107); CHOLESTEROL 137 mg/dL (50-200); CO2 28 mmol/L (21-32); CREATININE 0.7 mg/dL (0.55-1.3); GLUCOSE,RANDOM 85 mg/dL (74-106); HDL CHOLESTEROL 60 mg/dL (40-60); MAGNESIUM 2.2 mg/dL (1.8-2.4); PHOSPHOROUS 2.4 mg/dL (2.5-4.9); POTASSIUM 4.4 mmol/L (3.5-5.1); SGOT/AST 57 U/L (15-37); SGPT/ALT 42 U/L (13-61); SODIUM 144 mmol/L (136-145); TOT PROT 6.3 g/dl (6.4-8.2); TRIGLYCERIDES 79 mg/dL (0-150)
--- NOTE | 2018-07-29 08:45 | EKG ---
Test Reason : Blood Pressure : / mmHG Vent. Rate : 070 BPM Atrial Rate : 070 BPM P-R Int : 222 ms QRS Dur : 090 ms QT Int : 416 ms P-R-T Axes : 004 015 013 degrees QTc Int : 449 ms Atrial-paced rhythm with prolonged AV conduction ABNORMAL ECG WHEN COMPARED WITH ECG OF 29-JUL-2018 01:44, NO SIGNIFICANT CHANGE WAS FOUND Confirmed by JULISSA SERRANO MD ([id number]) on 07/29/2018 8:45:10 AM Referred By: Confirmed By:JULISSA SERRANO MD
--- NOTE | 2018-07-29 08:45 | EKG ---
Test Reason : Blood Pressure : / mmHG Vent. Rate : 070 BPM Atrial Rate : 070 BPM P-R Int : 212 ms QRS Dur : 084 ms QT Int : 418 ms P-R-T Axes : 032 001 016 degrees QTc Int : 451 ms Atrial-paced rhythm with prolonged AV conduction ABNORMAL ECG WHEN COMPARED WITH ECG OF 14-DEC-2010 08:37, NO SIGNIFICANT CHANGE WAS FOUND Confirmed by JULISSA SERRANO MD ([id number]) on 07/29/2018 8:45:29 AM Referred By: Confirmed By:JULISSA SERRANO MD
[2018-07-29 08:55] LABS: INR 1.13 (0.83-1.09); PROTHROMBIN TIME (PATIENT) 13.4 SEC (9.7-13.0)
[2018-07-29 08:58] LABS: ACTIVATED PTT 26.7 SECONDS (25.2-36.5)
--- NOTE | 2018-07-29 09:13 | ECHO ---
Name: KASIA BERGMAN Exam:Adult Echocardiogram Study Date: 07/29/2018 06:55 AM Age: 73 yrs Reason For Study: Chest pain Height: 62 in Weight: 167 lb BSA: 1.8 m2 MMode/2D Measurements & Calculations IVSd: 1.00 cm Ao root diam: 3.2 cm LVIDd: 4.6 cm LA dimension: 4.7 cm LVIDs: 2.9 cm LVPWd: 1.0 cm EDV(Teich): 97.5 ml LVOT diam: 2.2 cm ESV(Teich): 31.1 ml RV S Tawanda: 16.8 cm/sec Doppler Measurements & Calculations MV E max tawanda: 70.8 cm/sec AI P1/2t: 336.5 msec MV A max tawanda: 97.0 cm/sec MV E/A: 0.73 AI max tawanda: 381.0 cm/sec TR max tawanda: 337.2 cm/sec AI max P.1 mmHg TR max P.5 mmHg AI dec slope: 331.6 cm/sec2 Med Peak E' Tawanda: 5.5 cm/sec PI Vmax: 120.8 cm/sec Med E/e': 12.8 Lat Peak E' Tawanda: 8.5 cm/sec Lat E/e': 8.3 Left Ventricle Left ventricular systolic function is normal. Ejection Fraction = 65%. Right Ventricle There is a pacemaker lead in the right ventricle. The right ventricular systolic function is normal. Atria The left atrium is moderately dilated. Right atrial size is normal. The atrial septum is aneurysmal. Mitral Valve The mitral valve is normal in structure and function. There is no mitral valve stenosis. There is mil d mitral regurgitation. Tricuspid Valve The tricuspid valve is normal in structure and function. There is moderate tricuspid regurgitation. R ight ventricular systolic pressure is elevated at 40-50mmHg. Aortic Valve The aortic valve is trileaflet. No hemodynamically significant valvular aortic stenosis. Moderate aor tic regurgitation. Pulmonic Valve The pulmonic valve is not well seen, but is grossly normal. There is no pulmonic valvular stenosis. M ild pulmonic valvular regurgitation. Great Vessels The aortic root is normal size. Pericardium/Pleura There is no pericardial effusion. Interpretation Summary Left ventricular systolic function is normal. Ejection Fraction = 65%. There is a pacemaker lead in the right ventricle. The right ventricular systolic function is normal. The left atrium is moderately dilated. The atrial septum is aneurysmal. There is mild mitral regurgitation. There is moderate tricuspid regurgitation. Moderate aortic regurgitation. There is no pericardial effusion. Right ventricular systolic pressure is elevated at 40-50mmHg. MD Dumont *Nan 07/29/2018 09:12 AM
[2018-07-29] MEDS ORDERED: APIXABAN 5 MG TABLET PO SCH (10:00)
[2018-07-29] MEDS ORDERED: PANTOPRAZOLE SODIUM 40 MG VIAL IVPUSH SCH (10:00)
[2018-07-29] MEDS ORDERED: NAPH,MB-DB/K PH,MBDB POWDER PACKET PO SCH (10:00)
[2018-07-29] MEDS ORDERED: VALSARTAN 160 MG TABLET (UD) PO SCH (10:00)
[2018-07-29] MEDS ORDERED: POLYETHYLENE GLYCOL 3350 119 GM BTL PO SCH (10:00)
[2018-07-29] MEDS ORDERED: ASPIRIN COATED 81 MG TABLET.EC PO SCH (10:00)
[2018-07-29] MEDS ORDERED: HYDROCHLOROTHIAZIDE 12.5 MG CAPSULE (FP) PO SCH (10:00)
[2018-07-29] MEDS ORDERED: NITROGLYCERIN SUBLINGUAL 1/150 0.4 MG TAB SL PRN (10:31)
[2018-07-29] MEDS ORDERED: ASPIRIN 81 MG CHEWABLE TABLETS ONE (11:13)
--- NOTE | 2018-07-29 12:36 | PN ---
Teaching Attending Note Name of Resident: Denise Heredia ATTENDING PHYSICIAN STATEMENT I saw and evaluated the patient. I reviewed the resident's note and discussed the case with the resident. I agree with the resident's findings and plan as documented. SUBJECTIVE: No fever or chills . has minimal abd pain, improved form yesterday. No fever or chills, has GOTTI , has JASPAL but does not use a BIPAP or CPAP . epigastric pain, is burning, and improved with antiacids given in ER. had BM yesterday but "small hard balls", suffers form constipation OBJECTIVE: NAd AAOx3 CV: RRR, no MRG . No JVd Lungs: CTAB ext : no edema . varicose veins on feet Abd: soft, minimal tenderness in all guadrants , with no rebound tenderness or guarding. NL BS ASSESSMENT AND PLAN: 73 y/o lady with h/o HTN, HLP, A fib , on eliquis, s/p PPM, DM and untreated JASPAL who presented with epigastric pain. 1- Epigastric pain with radiation to chest : likely GI in nature ( gastritis vs GERD) also complicated by constipation. Unlikely cardiac. EKG with no change from 2011. trop Nl x 2. no typical features. sh ehas GOTTI but this coul dbe due to deconditioning and untreated JASPAL. her nut dehydrator operator office was called by resident, last stress test in 2015 was nL with no signs of ischemia. - no further cardiac w/u as inpt - start PPI and carafate - f/u with GI as out pt. ? EGD eval - enema and bowel regimen for constipation 2- h/o A fib: cont toprol and eliquis 3- h/o untreated JASPAL. follow up with pulmonary 4- h/o HTN: cont meds dispo: dc home . f/U pulm, GI, PCP, and her nut dehydrator operator
[2018-07-29] MEDS ORDERED: DOCUSATE SODIUM 100 MG CAPSULE (FP) PO SCH (14:00)
--- NOTE | 2018-07-29 16:02 | DS ---
Physical Exam: SUBJECTIVE: Patient seen and examined this morning at bedside. No longer experiencing abdominal pain and has felt relief since receiving antacids. Denies any current fevers, chills, chest pain, SOB, nausea, vomiting, diarrhea. OBJECTIVE: Vital Signs Period Temp Pulse Resp BP Sys/Degroot Pulse Ox Last 24 Hr 98.0 F-98.5 F 70-75 18-20 101-154/61-81 96-99 PHYSICAL EXAM GENERAL: A&Ox3, NAD. HEAD: NCAT EYES: PERRL, EOMI ENT: Moist mucous membranes. NECK: No JVD LUNGS: CTAB, no wheezes HEART: Regular rate and rhythm, S1, S2 without murmur ABDOMEN: Obese, Soft, Minimal tenderness to palpation throughout, nondistended, + bowel sounds, no guarding EXTREMITIES: 2+ pulses, no edema. NEUROLOGICAL: Cranial nerves II through XII grossly intact. Normal speech, gait not observed. SKIN: Warm, Dry LABS Laboratory Last Values WBC 8.5 K/mm3 (4.0-10.0) 07/29/18 07:40 RBC 4.31 M/mm3 (3.60-5.2) 07/29/18 07:40 Hgb 11.5 GM/dL (10.7-15.3) 07/29/18 07:40 Hct 36.1 % (32.4-45.2) 07/29/18 07:40 MCV 83.8 fl (80-96) 07/29/18 07:40 MCH 26.6 pg (25.7-33.7) 07/29/18 07:40 MCHC 31.7 g/dl (32.0-36.0) L 07/29/18 07:40 RDW 15.1 % (11.6-15.6) 07/29/18 07:40 Plt Count 162 K/MM3 (134-434) 07/29/18 07:40 MPV 9.5 fl (7.5-11.1) 07/29/18 07:40 Absolute Neuts (auto) 5.4 K/mm3 (1.5-8.0) 07/29/18 07:40 Neutrophils % 64.3 % (42.8-82.8) 07/29/18 07:40 Lymphocytes % 21.3 % (8-40) D 07/29/18 07:40 Monocytes % 12.8 % (3.8-10.2) H 07/29/18 07:40 Eosinophils % 1.0 % (0-4.5) 07/29/18 07:40 Basophils % 0.6 % (0-2.0) 07/29/18 07:40 Nucleated RBC % 0 % (0-0) 07/29/18 07:40 PT with INR 13.40 SEC (9.7-13.0) H 07/29/18 07:40 INR 1.13 (0.83-1.09) H 07/29/18 07:40 PTT (Actin FS) 26.7 SECONDS (25.2-36.5) 07/29/18 07:40 Sodium 144 mmol/L (136-145) 07/29/18 07:40 Potassium 4.4 mmol/L (3.5-5.1) 07/29/18 07:40 Chloride 109 mmol/L (98-107) H 07/29/18 07:40 Carbon Dioxide 28 mmol/L (21-32) 07/29/18 07:40 Anion Gap 8 MMOL/L (8-16) 07/29/18 07:40 BUN 20 mg/dL (7-18) H 07/29/18 07:40 Creatinine 0.7 mg/dL (0.55-1.3) 07/29/18 07:40 Creat Clearance w eGFR > 60 (>60) 07/29/18 07:40 POC Glucometer 100.80792 UNITS (80-120) 07/29/18 11:18 Random Glucose 85 mg/dL (74-106) 07/29/18 07:40 Hemoglobin A1c % 6.8 % (4.2-6.3) H 07/29/18 07:40 Calcium 8.4 mg/dL (8.5-10.1) L 07/29/18 07:40 Phosphorus 2.4 mg/dL (2.5-4.9) L 07/29/18 07:40 Magnesium 2.2 mg/dL (1.8-2.4) 07/29/18 07:40 Total Bilirubin 0.4 mg/dL (0.2-1) 07/29/18 07:40 AST 57 U/L (15-37) H 07/29/18 07:40 ALT 42 U/L (13-61) 07/29/18 07:40 Alkaline Phosphatase 88 U/L (45-117) 07/29/18 07:40 Troponin I < 0.02 ng/ml (0.00-0.05) 07/29/18 07:40 Total Protein 6.3 g/dl (6.4-8.2) L 07/29/18 07:40 Albumin 3.3 g/dl (3.4-5.0) L 07/29/18 07:40 Triglycerides 79 mg/dL (0-150) 07/29/18 07:40 Cholesterol 137 mg/dL (50-200) 07/29/18 07:40 Total LDL Cholesterol 66 mg/dL (5-100) 07/29/18 07:40 HDL Cholesterol 60 mg/dL (40-60) 07/29/18 07:40 Lipase 223 U/L (73-393) 07/29/18 02:05 TSH 1.57 uIU/ml (0.358-3.74) 07/29/18 07:40 IMAGING: -CXR: No acute chest pathology. -Abdominal US: Nonvisualization of the pancreas. Status post cholecystectomy as per verbal clinical history. Tiny left hepatic lobe simple cyst measuring 6 mm. Normal appearing right kidney -EKG: Atrial-paced rhythm with prolonged AV conduction, ABNORMAL ECG, VR 70, QTc 451 -ECHO: LV Systolic function is normal. EF = 65%, RV Systolic function is normal. LA is moderately dilated. Atrial Septum is aneurysmal. Mild MR, Moderate TR and AR. HOSPITAL COURSE: Date of Admission:07/29/18 Date of Discharge: 07/29/18 73 y/o F presented with epigastric pain radiating to her chest and back for one day. ECHO and other Imaging was done (noted above). Trop < 0.02 x3. Her ict managers's office was called who mentioned that the most recent stress test was done in 2016 and did not reveal any signs of ischemia. Patient has a hx of gastritis and is currently experiencing constipation. Her sx's resolved with Antacid and an Enema; No further cardiac work was done inpatient. Patient continued her home meds during her stay. Patient was discharged home and told she needs to follow up with a scalehouse attendant for outpatient sleep study. Minutes to complete discharge: 38 Discharge Summary Reason For Visit: CHEST PAIN Current Active Problems Chest pain in adult (Acute) Epigastric abdominal pain (Acute) Afib (Chronic) DM (diabetes mellitus) (Chronic) HLD (hyperlipidemia) (Chronic) HTN (hypertension) (Chronic) Pacemaker (Chronic) Condition: Stable - Instructions Diet, Activity, Other Instructions: You were admitted to the hospital because you felt some abdominal pain. Physician Follow ups 1. Cardiology/PCP: Dr. Bassem Sheth in one week, please call to schedule follow up 2. GI: Dr. Stephan Palma in 2 weeks to further manage your belly pain Medications added to your home regimen 1. Carafate 1 tablet daily Please continue all other medications as prescribed. Please return to the ER if you have any signs or symptoms of chest pain, shortness of breath, uncontrollable fever, chills, nausea, vomiting, numbness, tingling, or weakness in any part of your body, changes in vision, or slurred speech. Please return to the ER if symptoms persist, worsen, or new symptoms arise. Referrals: Meryl Luevano [Other] Stephan Palma [Other] Disposition: HOME - Home Medications Comprehensive Discharge Medication List: Ambulatory Orders Apixaban [Eliquis] 5 mg PO BID 12/18/15 Esomeprazole Magnesium [Nexium] 40 mg PO DAILY 12/18/15 Metoprolol Succinate [Toprol XL -] 50 mg PO DAILY 12/18/15 Pregabalin [Lyrica -] 225 mg PO BID 12/18/15 metFORMIN HCL [Metformin HCl] 500 mg PO DAILY 12/18/15 Simvastatin 40 mg PO HS 01/23/16 Albuterol Sulfate Inhaler - [Ventolin HFA Inhaler -] 1 - 2 inh PO Q4H 07/29/18 Docusate Sodium [Colace -] 100 mg PO TID #90 capsule 07/29/18 Ergocalciferol (Vitamin D2) [Vitamin D2] 50,000 units PO DAILY 07/29/18 Polyethylene Glycol 3350 [Miralax 119 gm Btl -] 17 gm PO BID #1 bottle 07/29/18 Sucralfate [Carafate -] 1 gm PO DAILY #30 tablet 07/29/18 Valsartan/Hydrochlorothiazide [Valsartan-Hctz 80-12.5 mg Tab] 1 tab PO DAILY This patient is new to me today: Yes Date on this admission: 07/31/18 Emergency Visit: Yes ED Registration Date: 07/29/18 Care time: The patient presented to the Emergency Department on the above date and was hospitalized for further evaluation of their emergent condition. Critical Care patient: No - Discharge Referral Referred to [facility] No
[2018-07-29] MEDS ORDERED: ACETAMINOPHEN 325 MG TABLET (FP) PO ONE (18:45)
[2018-07-29] MEDS ORDERED: ATORVASTATIN CA 40 MG TABLET (FP) PO SCH (22:00)
[2018-07-29] MEDS ORDERED: MONTELUKAST NA 10 MG TABLET PO SCH (22:00)
[2018-07-29] MEDS ORDERED: PREGABALIN 75 MG CAPSULE PO SCH (22:00)
[2018-07-29 22:27] VITALS: BP 98/56; PULSE 69; TEMP 98.2
[2018-07-30] MEDS ORDERED: CALCIUM (OYSTER SHELL) 500 MG TABLET (FP) PO SCH (10:00)
== END 2018-07-29 21:00 | disposition home or self-care (01) ==
LOC: JER 01:01 → JERBED 04:37 → J4W 14:15
PROVIDERS: ADMIT Internal Medicine; ATTEND Internal Medicine
PROC: 3E033GC Introduction of Other Therapeutic Substance into Peripheral Vein, Percutaneous Approach (ICD-10-PCS; principal; 2018-07-29)
PROC: 3E0337Z Introduction of Electrolytic and Water Balance Substance into Peripheral Vein, Percutaneous Approach (ICD-10-PCS; 2018-07-29)
DX: R07.89 Other chest pain (principal); I10 Essential (primary) hypertension; E78.5 Hyperlipidemia, unspecified; E11.9 Type 2 diabetes mellitus without complications; I48.91 Unspecified atrial fibrillation; G47.33 Obstructive sleep apnea (adult) (pediatric); R10.13 Epigastric pain; Z79.84 Long term (current) use of oral hypoglycemic drugs; Z90.710 Acquired absence of both cervix and uterus; Z95.0 Presence of cardiac pacemaker; Z79.01 Long term (current) use of anticoagulants; Z88.2 Allergy status to sulfonamides
CPT/HCPCS: 36415; 71046-TC-FY; 76705-TC; 80053; 80061; 82962; 83036; 83690; 83721; 83735; 84100; 84443; 84484; 85025; 85610; 85730; 93005; 93010; 93306-TC; 96365; 96375; 99285-25; G0378

== ENCOUNTER 2018-12-23 17:00 | Inpatient (IN) | payer OTHER ==
--- NOTE | 2018-12-23 17:38 | PDOC ---
History of Present Illness - General Chief Complaint: Chest Pain Stated Complaint: CHEST PAIN Time Seen by Provider: 12/23/18 17:37 History Source: Patient Exam Limitations: No Limitations Past History - Past Medical History Allergies/Adverse Reactions: Allergies Allergy/AdvReac Type Severity Reaction Status Date / Time Sulfa (Sulfonamide Allergy Verified 07/29/18 01:20 Antibiotics) Home Medications: Ambulatory Orders Apixaban [Eliquis] 5 mg PO BID 12/18/15 Esomeprazole Magnesium [Nexium] 40 mg PO DAILY 12/18/15 Metoprolol Succinate [Toprol XL -] 50 mg PO DAILY 12/18/15 Pregabalin [Lyrica -] 225 mg PO BID 12/18/15 metFORMIN HCL [Metformin HCl] 500 mg PO DAILY 12/18/15 Simvastatin 40 mg PO HS 01/23/16 Albuterol Sulfate Inhaler - [Ventolin HFA Inhaler -] 1 - 2 inh PO Q4H 07/29/18 Docusate Sodium [Colace -] 100 mg PO TID #90 capsule 07/29/18 Ergocalciferol (Vitamin D2) [Vitamin D2] 50,000 units PO DAILY 07/29/18 Polyethylene Glycol 3350 [Miralax 119 gm Btl -] 17 gm PO BID #1 bottle 07/29/18 Sucralfate [Carafate -] 1 gm PO DAILY #30 tablet 07/29/18 Valsartan/Hydrochlorothiazide [Valsartan-Hctz 80-12.5 mg Tab] 1 tab PO DAILY Anemia: No Cardiac Disorders: Yes (afib) COPD: No Diabetes: Yes Disorders: Yes HTN: Yes Hypercholesterolemia: Yes - Surgical History Cholecystectomy: Yes Orthopedic Surgery: Yes (SHOULDER SX Left) - Immunization History Immunization Up to Date: Yes - Suicide/Smoking/Psychosocial Hx Smoking History: Never smoked Have you smoked in the past 12 months: No Hx Alcohol Use: No Drug/Substance Use Hx: No Substance Use Type: None Hx Substance Use Treatment: No *Physical Exam - Vital Signs Last Vital Signs Temp Pulse Resp BP Pulse Ox 102.3 F H 118 H 17 104/65 97 12/23/18 17:10 12/23/18 17:10 12/23/18 17:10 12/23/18 17:10 12/23/18 17:10
[2018-12-23] MEDS ORDERED: ACETAMINOPHEN INJECTION 100 ML IVPB ONE ×2 (17:41→20:58)
[2018-12-23] MEDS ORDERED: ACETAMINOPHEN 1000 MG/100 ML VIAL (NON FORMULARY) IVPB ONE ×2 (17:42→20:24)
[2018-12-23] MEDS ORDERED: SODIUM CHLORIDE 1,000 ML IV STA ×2 (17:42→18:58)
--- NOTE | 2018-12-23 17:47 | PDOC ---
Attending Attestation - HPI HPI: 12/23/18 18:20 The patient is a 73 year old female, with a significant PMH of DM, HTN, HLD, ventricular arrhythmia, AF (on Eliquis), allergic rhinitis, cholecystectomy, and hysterectomy who presents to the emergency department with one month of intermittent chest pain and generalized body weakness, worsening today. The patient describes her chest pain as pressure that radiates to her neck, back, arms and epigastrium. The patient endorses sweats, fevers and intermittent cough , secondary to her symptoms. The patient denies shortness of breath, headache or dizziness. The patient denies chills, diarrhea or constipation. The patient denies dysuria, frequency, urgency or hematuria. Allergies: Sulfa Past surgical history: L shoulder surgery, Cholecystectomy Social history: None reported PCP: Meryl Bunn <Mikal Mcbride - Last Filed: 12/23/18 18:20> - Resident Resident Name: Neris Small - ED Attending Attestation I have performed the following: I have examined & evaluated the patient, The case was reviewed & discussed with the resident, I agree w/resident's findings & plan, Exceptions are as noted - Physicial Exam PE: GENERAL: Awake, alert, and fully oriented, in no acute distress HEAD: No signs of trauma EYES: PERRLA, EOMI, sclera anicteric, conjunctiva clear ENT: Auricles normal inspection, hearing grossly normal, nares patent, oropharynx clear without exudates. Moist mucosa NECK: Normal ROM, supple, no lymphadenopathy, JVD, or masses LUNGS: Breath sounds equal, clear to auscultation bilaterally. No wheezes, and no crackles HEART: Regular rate and rhythm, normal S1 and S2, no murmurs, rubs or gallops ABDOMEN: Soft, nontender, normoactive bowel sounds. No guarding, no rebound. No masses EXTREMITIES: Normal range of motion, no edema. No clubbing or cyanosis. No cords, erythema, or tenderness NEUROLOGICAL: Cranial nerves II through XII grossly intact. Normal speech, normal gait. Motor and sensation intact SKIN: Warm, Dry, normal turgor, no rashes or lesions noted. - Medical Decision Making Pt with multiple somatic complaints, poor historian. Will pursue fever workup and cardiac workup. Likely admission in light of high fever and recent chest pain. <Maddison Jeffrey - Last Filed: 12/26/18 11:03> Attestations - Attestations 12/23/18 18:21 Documentation prepared by Mikal Mcbride, acting as medical laboratory technical officer for Maddison Jeffrey MD, MD <Mikal Mcbride - Last Filed: 12/23/18 18:20>
--- NOTE | 2018-12-23 18:01 | PDOC ---
History of Present Illness - General Chief Complaint: Chest Pain Stated Complaint: CHEST PAIN Time Seen by Provider: 12/23/18 17:37 History Source: Patient Exam Limitations: Language Barrier - History of Present Illness Initial Comments: 12/23/18 17:56 73 year old female with PMH DM, HTN, HLD, ventricular arrhythmia, pacer, AF on Eliquis, allergic rhinitis, cholecystectomy, hysterectomy presented ot ED for chest pain x1 month, worsening today. Pt admitted to sweats and body aches. Pt stated that her chest pain is intermittent, described as pressure, radiating to her left neck, left arm, back, and epigastrium, worsened by exertion, alleviated by rest. Pt admitted to generalized weakness. Pt denied nausea, vomiting, diarrhea. Pt stated she has had intermittent productive white cough for several months. Allergies: Sulfa PCP: Bassem Past History - Past Medical History Allergies/Adverse Reactions: Allergies Allergy/AdvReac Type Severity Reaction Status Date / Time Sulfa (Sulfonamide Allergy Verified 12/23/18 17:56 Antibiotics) Home Medications: Ambulatory Orders Apixaban [Eliquis] 5 mg PO BID 12/18/15 Metoprolol Succinate [Toprol XL -] 50 mg PO DAILY 12/18/15 Simvastatin 40 mg PO HS 01/23/16 Ergocalciferol (Vitamin D2) [Vitamin D2] 50,000 units PO WEEKLY 07/29/18 Valsartan/Hydrochlorothiazide [Valsartan-Hctz 80-12.5 mg Tab] 1 tab PO DAILY Albuterol Sulfate Inhaler - [Ventolin Hfa Inhaler -] 1 - 2 inh PO QID 12/23/18 Dexlansoprazole [Dexilant] 60 mg PO DAILY 12/23/18 Docusate Sodium [Colace -] 100 mg PO TID PRN 12/23/18 Fluticasone Prop 0.05% Nasal [Flonase -] 1 spray NS PRN 12/23/18 Metformin HCl [Metformin HCl ER] 500 mg PO DAILY 12/23/18 Montelukast Sodium [Singulair] 10 mg PO DAILY 12/23/18 Nitroglycerin [Nitrostat] 0.4 mg SL ASDIR PRN 12/23/18 Anemia: No Cardiac Disorders: Yes (afib) COPD: No Diabetes: Yes Disorders: Yes HTN: Yes Hypercholesterolemia: Yes - Surgical History Cholecystectomy: Yes Orthopedic Surgery: Yes (SHOULDER SX Left) - Immunization History Immunization Up to Date: Yes - Suicide/Smoking/Psychosocial Hx Smoking History: Never smoked Have you smoked in the past 12 months: No Hx Alcohol Use: No Drug/Substance Use Hx: No Substance Use Type: None Hx Substance Use Treatment: No Review of Systems - Review of Systems Able to Perform ROS?: Yes Comments:: 12/23/18 17:58 General: admitted to sweats, chills, generalized weakness, body aches. HEENT: denied sore throat, rhinorrhea, ear pain. Neck: admitted to radiating left neck pain. Heart: admitted to chest pain. denied palpitations, syncope. Respiratory: admitted to cough, sputum production. denied shortness of breath, hemoptysis. Abdomen: denied abdominal pain, nausea, vomiting, diarrhea, constipation, blood in stool. : denied dysuria, increased urinary frequency, hematuria, urinary incontinence , flank pain. Back: admitted to radiating back pain. Musculoskeletal: admitted to radiating left arm pain. denied joint pain, joint swelling. Neurological: denied headache, dizziness, numbness, tingling, weakness. Skin: denied rash, laceration, abrasion. *Physical Exam - Vital Signs Last Vital Signs Temp Pulse Resp BP Pulse Ox 102.3 F H 118 H 17 104/65 97 12/23/18 17:10 12/23/18 17:10 12/23/18 17:10 12/23/18 17:10 12/23/18 17:10 - Physical Exam Comments: 12/23/18 17:59 Constitutional: Well-nourished, Well-developed, appearing stated age. HEENT: head is normocephalic, atraumatic. EOMI. PERRLA. Neck: supple. Full ROM. Heart: regular rhythm. no murmurs, rubs or gallops. no friction rub. Lungs: clear to auscultation bilaterally. no crackles, rhonchi or wheezing. no stridor. Abdomen: soft, nontender. normal bowel sounds. no rebound, guarding, masses. Extremities: peripheral pulses intact. no lower extremity edema. Neurological: CN 2-12 grossly intact. moves all four extremities. Psych: awake, alert, oriented x3. follows commands. answers questions appropriately. Skin: no rash to chest. no foot ulcer to heels, plantar surface or between toes bilaterally. Heart Score/ECG Review - History History: Slightly suspicious - Electrocardiogram EKG: Normal - Age Age: >/= 65 - Risk Factors Risk Factors Heart Score: Yes Hx Hypercholesterolemia, Yes Hx Hypertension, Yes Hx Diabetes, Yes Hx Obesity Based on the list above the patient has:: >/=3 risk factors or Hx atherosclerotic disease - Troponin Troponin: </= normal limit - Score Heart Score - Total: 4 ED Treatment Course - LABORATORY CBC & Chemistry Diagram: 12/24/18 06:40 12/24/18 06:40 - RADIOLOGY Radiology Studies Ordered: Category Date Time Status CHEST X-RAY PORTABLE* [RAD] Stat Radiology 12/23/18 17:41 Taken - Medications Given in the ED: ED Medications Discontinued Medications Generic Name Dose Route Start Last Admin Trade Name Freq PRN Reason Stop Dose Admin Acetaminophen 1,000 mg 12/23/18 17:42 12/23/18 17:55 Ofirmev Injection - IVPB 12/23/18 17:43 1,000 mg ONCE ONE Administration Medical Decision Making - Medical Decision Making 12/23/18 18:00 73 year old female with above PMH presented to ED for chest pain x1 month, also complaining of sweats/chills/generalized weakness/body aches. Initial Vital Signs Temp Pulse Resp BP Pulse Ox 102.3 F H 118 H 17 104/65 97 12/23/18 17:10 12/23/18 17:10 12/23/18 17:10 12/23/18 17:10 12/23/18 17:10 Febrile Tachycardic. No tachypnea. Mild hypotension. No hypoxia on room air. Labs ordered: CBC, CMP, VBG, troponin, influenza A/B, lactate, blood cultures, UA/UC Imaging ordered: CXR Medications ordered: Tylenol IV, normal saline bolus 1000 cc EKG performed at 1656: rate 103, regular rhythm, normal axis, normal intervals, flat T V5/V6, no diffuse ST elevation, no NV depression. 12/23/18 18:21 CBC WBC 12.0 K/mm3 (4.0-10.0) H 12/23/18 17:55 RBC 4.55 M/mm3 (3.60-5.2) 12/23/18 17:55 Hgb 12.4 GM/dL (10.7-15.3) 12/23/18 17:55 Hct 38.3 % (32.4-45.2) 12/23/18 17:55 MCV 84.2 fl (80-96) 12/23/18 17:55 MCH 27.3 pg (25.7-33.7) 12/23/18 17:55 MCHC 32.5 g/dl (32.0-36.0) 12/23/18 17:55 RDW 14.5 % (11.6-15.6) 12/23/18 17:55 Plt Count 194 K/MM3 (134-434) 12/23/18 17:55 MPV 9.6 fl (7.5-11.1) 12/23/18 17:55 Absolute Neuts (auto) 9.1 K/mm3 (1.5-8.0) H 12/23/18 17:55 Neutrophils % 75.8 % (42.8-82.8) 12/23/18 17:55 Lymphocytes % 9.7 % (8-40) D 12/23/18 17:55 Monocytes % 13.9 % (3.8-10.2) H 12/23/18 17:55 Eosinophils % 0.1 % (0-4.5) D 12/23/18 17:55 Basophils % 0.5 % (0-2.0) 12/23/18 17:55 Nucleated RBC % 0 % (0-0) 12/23/18 17:55 Leukocytosis with elevated monocytes. 12/23/18 18:59 CMP Lactic Acid 2.1 mmol/L (0.4-2.0) H 12/23/18 17:18 Troponin I < 0.02 ng/ml (0.00-0.05) 12/23/18 17:55 Lactic acidosis. Normal troponin. Medications ordered: normal saline bolus 1000 cc Influenza testing negative. Symptoms consistent with influenza, pt is diabetic. Will discuss with inpatient team for treatment. 12/23/18 19:28 CMP Sodium 134 mmol/L (136-145) L 12/23/18 17:55 Potassium 4.3 mmol/L (3.5-5.1) 12/23/18 17:55 Chloride 100 mmol/L (98-107) 12/23/18 17:55 Carbon Dioxide 25 mmol/L (21-32) 12/23/18 17:55 Anion Gap 9 MMOL/L (8-16) 12/23/18 17:55 BUN 18 mg/dL (7-18) 12/23/18 17:55 Creatinine 0.9 mg/dL (0.55-1.3) 12/23/18 17:55 Creat Clearance w eGFR 61.55 (>60) 12/23/18 17:55 Random Glucose 102 mg/dL (74-106) 12/23/18 17:55 Lactic Acid 2.1 mmol/L (0.4-2.0) H 12/23/18 17:18 Calcium 8.6 mg/dL (8.5-10.1) 12/23/18 17:55 Phosphorus 1.5 mg/dL (2.5-4.9) L 12/23/18 17:55 Magnesium 1.7 mg/dL (1.8-2.4) L 12/23/18 17:55 Total Bilirubin 0.5 mg/dL (0.2-1) 12/23/18 17:55 AST 13 U/L (15-37) L 12/23/18 17:55 ALT 14 U/L (13-61) 12/23/18 17:55 Alkaline Phosphatase 67 U/L (45-117) 12/23/18 17:55 Troponin I < 0.02 ng/ml (0.00-0.05) 12/23/18 17:55 Total Protein 7.4 g/dl (6.4-8.2) 12/23/18 17:55 Albumin 3.7 g/dl (3.4-5.0) 12/23/18 17:55 Low magnesium. Low phosphorus. No PATY. Medications ordered: phos packet, magnesium PO 12/23/18 20:36 Pending repeat troponin and EKG. Pending UA. Pt to be admitted for chest pain. 12/23/18 21:00 Repeat trop negative. Repeat EKG performed at 2037: rate 70, regular rhythm, normal axis, normal intervals, atrial paced rhythm, T in V4 now biphasic, flat T V5/V6, flat T II/ III/aVF. 12/23/18 21:[address] Borrero about the patient. Pt to be admitted to Dr. Turcios's service. Pending admission. Pending UA. 12/24/18 18:20 Follow up: Urine Test Results Urine Color Yellow 12/24/18 03:10 Urine Appearance Clear 12/24/18 03:10 Urine pH 6.5 (5.0-8.0) D 12/24/18 03:10 Ur Specific [place] 1.013 (1.010-1.035) 12/24/18 03:10 Urine Protein Negative (NEGATIVE) 12/24/18 03:10 Urine Glucose (UA) Negative (NEGATIVE) 12/24/18 03:10 Urine Ketones Negative (NEGATIVE) 12/24/18 03:10 Urine Blood Negative (NEGATIVE) 12/24/18 03:10 Urine Nitrite Negative (NEGATIVE) 12/24/18 03:10 Urine Bilirubin Negative (NEGATIVE) 12/24/18 03:10 Ur Leukocyte Esterase 2+ (NEGATIVE) H 12/24/18 03:10 WBC>10 UTI *DC/Admit/Observation/Transfer Diagnosis at time of Disposition: Chest pain, Lactic acidosis - Discharge Dispostion Condition at time of disposition: Stable Decision to Admit order: Yes - Referrals - Patient Instructions - Post Discharge Activity
[2018-12-23 18:07] LABS: BASO % 0.5 % (0-2.0); EOS % 0.1 % (0-4.5); HEMATOCRIT 38.3 % (32.4-45.2); HEMOGLOBIN 12.4 GM/dL (10.7-15.3); LYMPH % 9.7 % (8-40); MCH 27.3 pg (25.7-33.7); MCHC 32.5 g/dl (32.0-36.0); MEAN CELL VOLUME 84.2 fl (80-96); MEAN PLT VOLUME 9.6 fl (7.5-11.1); MONO % 13.9 % (3.8-10.2); NEUT % 75.8 % (42.8-82.8); PLATELET COUNT 194 K/MM3 (134-434); RBC 4.55 M/mm3 (3.60-5.2); RDW 14.5 % (11.6-15.6)
[2018-12-23 18:14] LABS: VENOUS PC02 29.4 mmHg (41-51); VENOUS PH 7.53 (7.31-7.41); VENOUS PO2 55.2 mmHg (30-40)
[2018-12-23 18:35] LABS: INR 1.18 (0.83-1.09)
[2018-12-23 18:38] LABS: ACTIVATED PTT 26.3 SECONDS (25.2-36.5)
[2018-12-23 19:23] LABS: ALBUMIN 3.7 g/dl (3.4-5.0); ALK PHOS 67 U/L (45-117); ANION GAP 9 MMOL/L (8-16); BILIRUBIN,TOTAL 0.5 mg/dL (0.2-1); BLOOD UREA NITROGEN 18 mg/dL (7-18); CALCIUM 8.6 mg/dL (8.5-10.1); CHLORIDE 100 mmol/L (98-107); CO2 25 mmol/L (21-32); CREATININE 0.9 mg/dL (0.55-1.3); GLUCOSE,RANDOM 102 mg/dL (74-106); MAGNESIUM 1.7 mg/dL (1.8-2.4); PHOSPHOROUS 1.5 mg/dL (2.5-4.9); POTASSIUM 4.3 mmol/L (3.5-5.1); SGOT/AST 13 U/L (15-37); SGPT/ALT 14 U/L (13-61); SODIUM 134 mmol/L (136-145); TOT PROT 7.4 g/dl (6.4-8.2)
[2018-12-23] MEDS ORDERED: MAGNESIUM OXIDE 400 MG TABLET (FP) PO ONE (19:29)
[2018-12-23] MEDS ORDERED: NAPH,MB-DB/K PH,MBDB POWDER PACKET PO ONE (19:29)
--- NOTE | 2018-12-23 21:59 | PN ---
Teaching Attending Note Name of Resident: Valeria Borrero ATTENDING PHYSICIAN STATEMENT I saw and evaluated the patient. I reviewed the resident's note and discussed the case with the resident. I agree with the resident's findings and plan as documented. SUBJECTIVE: Patient is a 73 year old woman with PMH of NIDDM, HTN, HLD, ventricular arrhythmia, Atrial pacemaker, Afib on Eliquis, allergic rhinitis, cholecystectomy, and hysterectomy who presents to the ER for worsening chest pain for 1 month. She has sweats and body aches. Says that her chest pain is intermittent, described as pressure, radiating to her left neck, left arm, back , and epigastrium, worsened by exertion, alleviated by rest. Patient admitted to generalized weakness. She denies nausea, vomiting, diarrhea, headache, photophobia or dysuria. Has had intermittent productive white cough for several months. OBJECTIVE: Alert Vital Signs Period Temp Pulse Resp BP Sys/Degroot Pulse Ox Last 24 Hr 98.3 F-102.3 F 86-118 17-20 93-104/55-65 95-97 HEENT: No Jaundice, eye redness or discharge, PERRLA, EOMI. Normocephalic, atraumatic. External ears are normal and hearing is grossly intact. No nasal discharge. Neck: Supple, nontender. No palpable adenopathy or thyromegaly. No JVD Chest: Good effort. Clear to auscultation and percussion. Heart: Regular. No S3, rub or murmur Abdomen: Not distended, soft, abdominal tenderness and no HSM. No rebound or guarding. Normal bowel sounds. Ext: Peripheral pulses intact. No leg edema. Skin: Warm and dry. No petechiae, rash or ecchymosis. Neuro: Alert. Oriented x3. CN 2-12 grossly intact. Sensation grossly intact in all four extremities and DTR are symmetric. Psych: Appropriate mood and affect. Good insight. Home Medications Medication Instructions Recorded Apixaban [Eliquis] 5 mg PO BID 12/18/15 Metoprolol Succinate [Toprol XL -] 50 mg PO DAILY 12/18/15 Simvastatin 40 mg PO HS 01/23/16 Ergocalciferol (Vitamin D2) 50,000 units PO WEEKLY 07/29/18 [Vitamin D2] Valsartan/Hydrochlorothiazide 1 tab PO DAILY 07/29/18 [Valsartan-Hctz 80-12.5 mg Tab] Albuterol Sulfate Inhaler - 1 - 2 inh PO QID 12/23/18 [Ventolin Hfa Inhaler -] Dexlansoprazole [Dexilant] 60 mg PO DAILY 12/23/18 Docusate Sodium [Colace -] 100 mg PO TID PRN 12/23/18 Fluticasone Prop 0.05% Nasal 1 spray NS PRN 12/23/18 [Flonase -] Metformin HCl [Metformin HCl ER] 500 mg PO DAILY 12/23/18 Montelukast Sodium [Singulair] 10 mg PO DAILY 12/23/18 Nitroglycerin [Nitrostat] 0.4 mg SL ASDIR PRN 12/23/18 Abnormal Lab Results 12/23/18 12/23/18 12/23/18 17:18 17:55 17:55 WBC 12.0 H Absolute Neuts (auto) 9.1 H Monocytes % 13.9 H PT with INR 14.00 H INR 1.18 H VBG pH POC VBG pCO2 POC VBG pO2 VBG O2 Sat ([place]) VBG Base Excess Sodium Lactic Acid 2.1 H Phosphorus Magnesium AST 12/23/18 12/23/18 17:55 17:55 WBC Absolute Neuts (auto) Monocytes % PT with INR INR VBG pH 7.53 H POC VBG pCO2 29.4 L POC VBG pO2 55.2 H VBG O2 Sat ([place]) 91.0 H VBG Base Excess 2.8 H Sodium 134 L Lactic Acid Phosphorus 1.5 L Magnesium 1.7 L AST 13 L Home Medications Medication Instructions Recorded Apixaban [Eliquis] 5 mg PO BID 12/18/15 Metoprolol Succinate [Toprol XL -] 50 mg PO DAILY 12/18/15 Simvastatin 40 mg PO HS 01/23/16 Ergocalciferol (Vitamin D2) 50,000 units PO WEEKLY 07/29/18 [Vitamin D2] Valsartan/Hydrochlorothiazide 1 tab PO DAILY 07/29/18 [Valsartan-Hctz 80-12.5 mg Tab] Albuterol Sulfate Inhaler - 1 - 2 inh PO QID 12/23/18 [Ventolin Hfa Inhaler -] Dexlansoprazole [Dexilant] 60 mg PO DAILY 12/23/18 Docusate Sodium [Colace -] 100 mg PO TID PRN 12/23/18 Fluticasone Prop 0.05% Nasal 1 spray NS PRN 12/23/18 [Flonase -] Metformin HCl [Metformin HCl ER] 500 mg PO DAILY 12/23/18 Montelukast Sodium [Singulair] 10 mg PO DAILY 12/23/18 Nitroglycerin [Nitrostat] 0.4 mg SL ASDIR PRN 12/23/18 ASSESSMENT AND PLAN: 1. Chest pain/?Sepsis - Patient has risk factors for CAD. EKG shows atrial paced rhythm and flattening of T waves in V3-6, but troponin X 2 is negative. Will admit to telemetry, get ECHO, fasting lipids and consult cardiology. Repeat EKG in 6 hours. Sepsis is a concern since BP remains low (90/55) even after 2 liters of IV NS and she has leukocytosis, fever and lactic acidosis. The latter may be partly due to Metformin. No acute pathology on CXR. We ordered a stat urinalysis she has UTI. Will treat with IV Rocepin. Flu swab is negative. Blood cultures sent. No acute pathology on CT abd/pelvis. Continue IV NS, trend lactic acid and hold antihypertensive drugs and metformin. Cause of low phosphate and Mg unclear. Will give Neutraphos and IV MgSO4. 2. DM For now, we will hold the home diabetes drugs and implement sliding scale insulin regimen. Provide comprehensive diabetes care with patient teaching and counseling about the importance of adherence to prescribed diabetes regimen, euglycemia, eye care and foot care. 3. DVT prophylaxis - On Eliquis for Afib 4. Advance directives - Full code
[2018-12-23] MEDS ORDERED: DOCUSATE SODIUM 100 MG CAPSULE (FP) PO PRN (22:18)
--- NOTE | 2018-12-23 22:29 | HP ---
CHIEF COMPLAINT:chest pain, generalized body aches PCP: HISTORY OF PRESENT ILLNESS: Patient is a 73 year old female with past medical history of HTN, HLD, DM, ventricular arrhythmias, A.fib s/p PPM (on eliquis), anxiety, presented to the ED due to 1 month history of generalized body aches and chest pain. Patient reports it feels like arthritic pain, which she would take tylenol at home providing some relief. Patient is also known to have a history of intermittent substernal chest pressure to which she would take Nitroglycerin. Last night, she had an episode of substernal chest pain 04/22 which lasted for a few minutes. Patient reported pain as pressure-like, left-sided chest pain, radiating to the left shoulder, at rest. Patient took nitroglycerin which provided relief. Today, patient experienced generalized body aches, joint pains and chest pressure, and decided to come to the ED. She denies fever, chills, headache, dizziness, nausea, vomiting, SOB, palpitations, abdominal pain, diarrhea, urinary symptoms. ER course was notable for: (1)Temp 102.3 --> 98.3 (IV Tylenol given) (2)flu negative, leukocytosis (WBC 12), lactic acid 2.1 (3)EKG showed T wave flattening on V4-V6 on repeat EKG, Trops <0.02 x2 Recent Travel:denies PAST MEDICAL HISTORY: HTN HLD DM ventricular arrhythmias A.fib s/p PPM (on eliquis) anxiety PAST SURGICAL HISTORY: Cholecystectomy Hysterectomy left shoulder surgery pacemaker placement Social History: Smoking:denies Alcohol:denies Drugs: denies Family History:Sister - DM Allergies Sulfa (Sulfonamide Antibiotics) Allergy (Verified 12/23/18 17:56) HOME MEDICATIONS: Home Medications Medication Instructions Recorded Apixaban [Eliquis] 5 mg PO BID 12/18/15 Metoprolol Succinate [Toprol XL -] 50 mg PO DAILY 12/18/15 Simvastatin 40 mg PO HS 01/23/16 Ergocalciferol (Vitamin D2) 50,000 units PO WEEKLY 07/29/18 [Vitamin D2] Valsartan/Hydrochlorothiazide 1 tab PO DAILY 07/29/18 [Valsartan-Hctz 80-12.5 mg Tab] Albuterol Sulfate Inhaler - 1 - 2 inh PO QID 12/23/18 [Ventolin Hfa Inhaler -] Dexlansoprazole [Dexilant] 60 mg PO DAILY 12/23/18 Docusate Sodium [Colace -] 100 mg PO TID PRN 12/23/18 Fluticasone Prop 0.05% Nasal 1 spray NS PRN 12/23/18 [Flonase -] Metformin HCl [Metformin HCl ER] 500 mg PO DAILY 12/23/18 Montelukast Sodium [Singulair] 10 mg PO DAILY 12/23/18 Nitroglycerin [Nitrostat] 0.4 mg SL ASDIR PRN 12/23/18 REVIEW OF SYSTEMS CONSTITUTIONAL: generalized malaise Absent: fever, chills, diaphoresis, loss of appetite, weight change HEENT: Absent: rhinorrhea, nasal congestion, throat pain, throat swelling, difficulty swallowing, mouth swelling, ear pain, eye pain, visual changes CARDIOVASCULAR: chest pain Absent: syncope, palpitations, irregular heart rate, lightheadedness, peripheral edema RESPIRATORY: Absent: cough, shortness of breath, dyspnea with exertion, orthopnea, wheezing, stridor, hemoptysis GASTROINTESTINAL: Absent: abdominal pain, abdominal distension, nausea, vomiting, diarrhea, constipation, melena, hematochezia GENITOURINARY: Absent: dysuria, frequency, urgency, hesitancy, hematuria, flank pain, genital pain MUSCULOSKELETAL: Absent: myalgia, arthralgia, joint swelling, back pain, neck pain SKIN: Absent: rash, itching, pallor HEMATOLOGIC/IMMUNOLOGIC: Absent: easy bleeding, easy bruising, lymphadenopathy, frequent infections ENDOCRINE: Absent: unexplained weight gain, unexplained weight loss, heat intolerance, cold intolerance NEUROLOGIC: Absent: headache, focal weakness or paresthesias, dizziness, unsteady gait, seizure, mental status changes, bladder or bowel incontinence PSYCHIATRIC: Absent: anxiety, depression, suicidal or homicidal ideation, hallucinations. PHYSICAL EXAMINATION Vital Signs - 24 hr 12/23/18 12/23/18 12/23/18 17:10 17:30 20:15 Temperature 102.3 F H 98.3 F Pulse Rate 118 H Pulse Rate [ 86 Left Radial] Respiratory 17 18 Rate Blood Pressure 104/65 Blood Pressure 93/55 L [Right Arm] O2 Sat by Pulse 97 96 95 Oximetry (%) 12/23/18 12/23/18 21:33 21:59 Temperature 98.7 F Pulse Rate Pulse Rate [ 70 Left Radial] Respiratory 20 18 Rate Blood Pressure Blood Pressure 90/55 L [Right Arm] O2 Sat by Pulse 97 95 Oximetry (%) GENERAL: Awake, alert, and fully oriented, in no acute distress. HEAD: Normal with no signs of trauma. EYES: PERRLA, EOMI, sclera anicteric, conjunctiva clear. EARS, NOSE, THROAT: oropharynx clear without exudates. Moist mucous membranes. NECK: Normal range of motion, supple without lymphadenopathy, JVD, or masses. LUNGS: Breath sounds equal, clear to auscultation bilaterally. HEART: Regular rate and rhythm, normal S1 and S2 without murmur, rub or gallop. ABDOMEN: Soft, +diffuse tenderness on deep palpation, not distended, normoactive bowel sounds. MUSCULOSKELETAL: Normal range of motion at all joints. No bony deformities or tenderness. No CVA tenderness. UPPER EXTREMITIES: 2+ pulses, warm, well-perfused. No cyanosis. No clubbing. No peripheral edema. LOWER EXTREMITIES: 2+ pulses, warm, well-perfused. No calf tenderness. No peripheral edema. NEUROLOGICAL: Cranial nerves II-XII intact. Normal speech. Normal gait. PSYCHIATRIC: Cooperative. Good eye contact. Appropriate mood and affect. SKIN: Warm, dry, normal turgor, no rashes or lesions noted. Laboratory Results - last 24 hr 12/23/18 12/23/18 12/23/18 17:18 17:55 17:55 WBC 12.0 H RBC 4.55 Hgb 12.4 Hct 38.3 MCV 84.2 MCH 27.3 MCHC 32.5 RDW 14.5 Plt Count 194 MPV 9.6 Absolute Neuts (auto) 9.1 H Neutrophils % 75.8 Lymphocytes % 9.7 D Monocytes % 13.9 H Eosinophils % 0.1 D Basophils % 0.5 Nucleated RBC % 0 PT with INR 14.00 H INR 1.18 H PTT (Actin FS) 26.3 VBG pH POC VBG pCO2 POC VBG pO2 VBG HCO3 VBG O2 Sat ([place]ley) VBG Base Excess Sodium Potassium Chloride Carbon Dioxide Anion Gap BUN Creatinine Creat Clearance w eGFR Random Glucose Lactic Acid 2.1 H Calcium Phosphorus Magnesium Total Bilirubin AST ALT Alkaline Phosphatase Troponin I Total Protein Albumin Influenza A (Rapid) Influenza B (Rapid) 12/23/18 12/23/18 12/23/18 17:55 17:55 17:55 WBC RBC Hgb Hct MCV MCH MCHC RDW Plt Count MPV Absolute Neuts (auto) Neutrophils % Lymphocytes % Monocytes % Eosinophils % Basophils % Nucleated RBC % PT with INR INR PTT (Actin FS) VBG pH POC VBG pCO2 POC VBG pO2 VBG HCO3 VBG O2 Sat (Westley) VBG Base Excess Sodium 134 L Potassium 4.3 Chloride 100 Carbon Dioxide 25 Anion Gap 9 BUN 18 Creatinine 0.9 Creat Clearance w eGFR 61.55 Random Glucose 102 Lactic Acid Calcium 8.6 Phosphorus 1.5 L Magnesium 1.7 L Total Bilirubin 0.5 AST 13 L ALT 14 Alkaline Phosphatase 67 Troponin I < 0.02 Total Protein 7.4 Albumin 3.7 Influenza A (Rapid) Negative Influenza B (Rapid) Negative 12/23/18 12/23/18 17:55 20:26 WBC RBC Hgb Hct MCV MCH MCHC RDW Plt Count MPV Absolute Neuts (auto) Neutrophils % Lymphocytes % Monocytes % Eosinophils % Basophils % Nucleated RBC % PT with INR INR PTT (Actin FS) VBG pH 7.53 H POC VBG pCO2 29.4 L POC VBG pO2 55.2 H VBG HCO3 24.6 VBG O2 Sat ([place]ley) 91.0 H VBG Base Excess 2.8 H Sodium Potassium Chloride Carbon Dioxide Anion Gap BUN Creatinine Creat Clearance w eGFR Random Glucose Lactic Acid Calcium Phosphorus Magnesium Total Bilirubin AST ALT Alkaline Phosphatase Troponin I < 0.02 Total Protein Albumin Influenza A (Rapid) Influenza B (Rapid) ASSESSMENT/PLAN: Patient is a 73 year old female with past medical history of HTN, HLD, DM, ventricular arrhythmias, A.fib s/p PPM (on eliquis), anxiety, presented to the ED due to 1 month history of generalized body aches and chest pain. #Chest pain rule out ACS, vs MSK -Trop <0.02 x2 -EKG showed T wave flattening on V4-V6 on repeat EKG, will repeat EKG in the morning -Echo -tele monitoring #Sepsis likely 2/2 UTI -Lactic 2.1 --> 2.0, leukocytosis -CTAP: no acute pathology, solitary pulmonary nodule on preliminary read -UA: 2+LE, 114WBC, Bacteria 2167 -Urine cultures pending -blood cultures pending -Previous urine culture (2016) grew E.coli sensitive to cephalosporins. -IV Zosyn 1 dose given at around 3am. -Will start IV Ceftriaxone 2 gm daily in the morning. -Iv fluids #HTN -Currently hypotensive -Will hold BP meds Valsartan and HCTZ #HLD -Continue Simvastatin 40mg daily #DM -Hold Metformin -Insulin sliding scale -BGM ACHS #Atrial fibrillation: rate controlled -On Eliquis 5mg BID -Will continue Metoprolol XL 50 mg with BP parameters #FEN -Iv NS @75cc/hr -HypoPhos/hypoMg, repleted -Diabetic diet #Prophylaxis -On Eliquis 5mg BID #Disposition -full code -tele Visit type - Emergency Visit Emergency Visit: Yes ED Registration Date: 12/23/18 Care time: The patient presented to the Emergency Department on the above date and was hospitalized for further evaluation of their emergent condition. - New Patient This patient is new to me today: Yes Date on this admission: 12/24/18 - Critical Care Critical Care patient: No
[2018-12-23] MEDS ORDERED: FLUTICASONE PROP 0.05% 16 GM NASAL SPRAY NS PRN (22:30)
[2018-12-23] MEDS: SODIUM CHLORIDE 1,000 ML IV SCH (23:13)
[2018-12-24] MEDS ORDERED: PIPERACILLIN/TAZOB 3.375 GM 3.375 GM in DEXTROSE 5%-WATER - 50 ML IVPB SCH (02:00)
[2018-12-24] MEDS ORDERED: PIPERACILLIN/TAZOBACTAM 3.375 GM VIAL IVPB ONE (02:20)
[2018-12-24] MEDS ORDERED: DEXTROSE 5%-WATER - 50 ML IVPB ONE (02:21)
[2018-12-24 03:34] LABS: EPI CELLS 0.3 /HPF (0-5/HPF); PH,URINE 6.5 (5.0-8.0); URINE APPEARANCE CLEAR; URINE BACTERIA 2167.1 /hpf (NEGATIVE); URINE BILIRUBIN NEGATIVE (NEGATIVE); URINE CASTS 6 /hpf (0-8); URINE COLOR YELLOW; URINE GLUCOSE (UA) NEGATIVE (NEGATIVE); URINE KETONE NEGATIVE (NEGATIVE); URINE LEUK ESTERASE 2+ (NEGATIVE); URINE NITRITE NEGATIVE (NEGATIVE); URINE PROTEIN NEGATIVE (NEGATIVE); URINE RBC 3 /hpf (0-4); URINE UROBILINOGEN 0.2 mg/dL (0.2-1.0); URINE WBC 114 /hpf (0-5)
[2018-12-24] MEDS: INSULIN SLIDING SCALE (NOVOLOG) 1 VIAL SQ SCH ×4 (07:02→22:26)
[2018-12-24] MEDS: ACETAMINOPHEN 325 MG TABLET (FP) PO PRN ×3 (08:00→22:27)
[2018-12-24 08:15] LABS: BASO % 0.4 % (0-2.0); EOS % 0.1 % (0-4.5); HEMOGLOBIN 10.8 GM/dL (10.7-15.3); LYMPH % 12.8 % (8-40); MCH 27.6 pg (25.7-33.7); MCHC 32.8 g/dl (32.0-36.0); MEAN CELL VOLUME 84.2 fl (80-96); MEAN PLT VOLUME 9.6 fl (7.5-11.1); MONO % 15.9 % (3.8-10.2); NEUT % 70.8 % (42.8-82.8); PLATELET COUNT 171 K/MM3 (134-434); RBC 3.92 M/mm3 (3.60-5.2); RDW 14.4 % (11.6-15.6); WHITE BLOOD COUNT 10.6 K/mm3 (4.0-10.0)
[2018-12-24 08:48] LABS: ALBUMIN 3.1 g/dl (3.4-5.0); ALK PHOS 62 U/L (45-117); ANION GAP 6 MMOL/L (8-16); BILIRUBIN,TOTAL 0.7 mg/dL (0.2-1); BLOOD UREA NITROGEN 11 mg/dL (7-18); CHLORIDE 105 mmol/L (98-107); CO2 29 mmol/L (21-32); CREATININE 0.7 mg/dL (0.55-1.3); GLUCOSE,RANDOM 112 mg/dL (74-106); POTASSIUM 4.2 mmol/L (3.5-5.1); SGOT/AST 15 U/L (15-37); SGPT/ALT 15 U/L (13-61); SODIUM 140 mmol/L (136-145); TOT PROT 6.4 g/dl (6.4-8.2)
[2018-12-24] MEDS ORDERED: DEXTROSE 5%-WATER 100 ML IVPB ONE (09:30)
[2018-12-24] MEDS: CEFTRIAXONE 2 GM in DEXTROSE 5%-WATER 100 ML IVPB SCH (10:02)
[2018-12-24] MEDS: APIXABAN 5 MG TABLET PO SCH ×2 (10:02→22:27)
--- NOTE | 2018-12-24 11:36 | CON.CARD ---
Consult Consult Specialty:: Cardiology (Covering Dr. Prince and Dr. Ellison) Referred by:: Hospitalist Reason for Consultation:: Cardiac evaluation - History of Present Illness Chief Complaint: Chest pain History of Present Illness: Patient is a 73 year old female with underlying history of DM, HTN, hypercholesterolemia, AF on DOAC who presents with complaints of chest discomfort in the left substernum radiating to left arm and neck associated with generalized weakness, shortness of breath. She complains of intermittent cough and sweats. She denies paroxysmal nocturnal dyspnea or orthopnea. She denies chills. She denies nausea, vomiting, diarrhea or abdominal pain. She denies headache or dizziness. She denies history of syncope. PCP: Meryl Bunn - History Source History Provided By: Patient, Medical Record - Past Medical History Cardio/Vascular: Yes: AFIB, HTN, Hyperlipdemia Endocrine: Yes: Diabetes Mellitus - Past Surgical History Past Surgical History: Yes: Cholecystectomy, Hysterectomy Additional Surgical History: Left shoulder surgery - Alcohol/Substance Use Hx Alcohol Use: No - Smoking History Smoking history: Never smoked Have you smoked in the past 12 months: No Home Medications - Allergies Allergies/Adverse Reactions: Allergies Allergy/AdvReac Type Severity Reaction Status Date / Time Sulfa (Sulfonamide Allergy Verified 12/23/18 17:56 Antibiotics) - Home Medications Home Medications: Ambulatory Orders Apixaban [Eliquis] 5 mg PO BID 12/18/15 Metoprolol Succinate [Toprol XL -] 50 mg PO DAILY 12/18/15 Simvastatin 40 mg PO HS 01/23/16 Ergocalciferol (Vitamin D2) [Vitamin D2] 50,000 units PO WEEKLY 07/29/18 Valsartan/Hydrochlorothiazide [Valsartan-Hctz 80-12.5 mg Tab] 1 tab PO DAILY Albuterol Sulfate Inhaler - [Ventolin Hfa Inhaler -] 1 - 2 inh PO QID 12/23/18 Dexlansoprazole [Dexilant] 60 mg PO DAILY 12/23/18 Docusate Sodium [Colace -] 100 mg PO TID PRN 12/23/18 Fluticasone Prop 0.05% Nasal [Flonase -] 1 spray NS PRN 12/23/18 Metformin HCl [Metformin HCl ER] 500 mg PO DAILY 12/23/18 Montelukast Sodium [Singulair] 10 mg PO DAILY 12/23/18 Nitroglycerin [Nitrostat] 0.4 mg SL ASDIR PRN 12/23/18 Review of Systems - Review of Systems Constitutional: denies: Chills, Fever Cardiovascular: reports: Chest Pain, Shortness of Breath. denies: Palpitations Respiratory: reports: SOB. denies: Cough, Hemoptysis, Orthopnea, PND, Wheezing Gastrointestinal: denies: Abdominal Pain, Constipation, Diarrhea, Dysphagia Genitourinary: denies: Discharge, Hematuria Neurological: denies: Dizziness, Headache, Seizure, Syncope Vital Signs: Vital Signs Temperature 100.5 F H 12/24/18 08:47 Pulse Rate 88 12/24/18 08:47 Respiratory Rate 22 H 12/24/18 09:00 Blood Pressure 129/70 12/24/18 08:47 O2 Sat by Pulse Oximetry (%) 96 12/24/18 09:00 Eyes: Yes: PERRL HENT: Yes: Atraumatic Neck: Yes: Supple Respiratory: Yes: CTA Bilaterally Gastrointestinal: Yes: Normal Bowel Sounds, Soft. No: Tenderness Cardiovascular: Yes: Regular Rate and Rhythm JVD: No PMI: Non-Displaced Heart Sounds: Yes: S1, S2. No: Gallop Murmur: No: Systolic Murmur, Diastolic Murmur Edema: No - Other Data Labs, Other Data: CBC, BMP 12/24/18 06:40 12/24/18 06:40 INR, PTT INR 1.18 (0.83-1.09) H 12/23/18 17:55 Troponin, BNP 12/23/18 12/23/18 17:55 20:26 Troponin I < 0.02 < 0.02 Sinus rhythm with normal ECG Imaging - Results Chest X-ray: Report Reviewed Cat Scan: Pending EKG: Report Reviewed Problem List - Problems (1) Chest pain Code(s): R07.9 - CHEST PAIN, UNSPECIFIED (2) Afib Code(s): I48.91 - UNSPECIFIED ATRIAL FIBRILLATION Qualifiers: Atrial fibrillation type: paroxysmal Qualified Code(s): I48.0 - Paroxysmal atrial fibrillation (3) DM (diabetes mellitus) Code(s): E11.9 - TYPE 2 DIABETES MELLITUS WITHOUT COMPLICATIONS Qualifiers: Diabetes mellitus type: type 2 Diabetes mellitus 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 insulin use: without 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 use Diabetes mellitus complication status: without complication Qualified Code(s): E11.9 - Type 2 diabetes mellitus without complications (4) HLD (hyperlipidemia) Code(s): E78.5 - HYPERLIPIDEMIA, UNSPECIFIED Qualifiers: Hyperlipidemia type: pure hypercholesterolemia Qualified Code(s): E78.00 - Pure hypercholesterolemia, unspecified; E78.0 - Pure hypercholesterolemia (5) HTN (hypertension) Code(s): I10 - ESSENTIAL (PRIMARY) HYPERTENSION Qualifiers: Hypertension type: essential hypertension Qualified Code(s): I10 - Essential (primary) hypertension Assessment/Plan 1. Chest pain syndrome, etiology to be determined 2. HTN 3. Hypercholesterolemia 4. DM 5. PAF on DOAC ([id number] score of at least 4) PLAN: 1. Continue current medical therapy including Eliquis 5 mg BID and Toprol XL 50 mg QD. Add ACEI or ARB if BP permits 2. Continue Lipitor 20 mg QHS 3. Echocardiography to assess LV/RV and valvular function 4. Trend troponins 5. If negative, consider Nuclear MPI Further plans are to follow Nick Calvo MD
--- NOTE | 2018-12-24 12:47 | PN ---
Progress Note (short form) - Note Progress Note: Patient is comfortable today but on and off mild chest pain. Vital Signs Temperature 100.5 F H 12/24/18 08:47 Pulse Rate 88 12/24/18 08:47 Respiratory Rate 22 H 12/24/18 09:00 Blood Pressure 129/70 12/24/18 08:47 O2 Sat by Pulse Oximetry (%) 96 12/24/18 09:00 GENERAL: The patient is awake, alert, and fully oriented, in no acute distress. HEAD: Normal with no signs of trauma. EYES: PERRL, extraocular movements intact, sclera anicteric, conjunctiva clear. No ptosis. ENT: Ears normal, nares patent, oropharynx clear without exudates, moist mucous membranes. NECK: Trachea midline, full range of motion, supple. LUNGS: Breath sounds equal, clear to auscultation bilaterally, no wheezes, no crackles, no accessory muscle use. HEART: Regular rate and rhythm, S1, S2 without murmur, rub or gallop. ABDOMEN: Soft, nontender, nondistended, normoactive bowel sounds, no guarding, no rebound, no hepatosplenomegaly, no masses. EXTREMITIES: 2+ pulses, warm, well-perfused, no edema. NEUROLOGICAL: Cranial nerves II through XII grossly intact. Normal speech, gait not observed. PSYCH: Normal mood, normal affect. SKIN: Warm, dry, normal turgor, no rashes or lesions noted CBCD WBC 10.6 K/mm3 (4.0-10.0) H 12/24/18 06:40 RBC 3.92 M/mm3 (3.60-5.2) 12/24/18 06:40 Hgb 10.8 GM/dL (10.7-15.3) 12/24/18 06:40 Hct 33.0 % (32.4-45.2) 12/24/18 06:40 MCV 84.2 fl (80-96) 12/24/18 06:40 MCHC 32.8 g/dl (32.0-36.0) 12/24/18 06:40 RDW 14.4 % (11.6-15.6) 12/24/18 06:40 Plt Count 171 K/MM3 (134-434) 12/24/18 06:40 MPV 9.6 fl (7.5-11.1) 12/24/18 06:40 CMP Sodium 140 mmol/L (136-145) 12/24/18 06:40 Potassium 4.2 mmol/L (3.5-5.1) 12/24/18 06:40 Chloride 105 mmol/L (98-107) 12/24/18 06:40 Carbon Dioxide 29 mmol/L (21-32) 12/24/18 06:40 Anion Gap 6 MMOL/L (8-16) L 12/24/18 06:40 BUN 11 mg/dL (7-18) 12/24/18 06:40 Creatinine 0.7 mg/dL (0.55-1.3) 12/24/18 06:40 Creat Clearance w eGFR 82.25 (>60) 12/24/18 06:40 Random Glucose 112 mg/dL (74-106) H 12/24/18 06:40 Calcium 8.0 mg/dL (8.5-10.1) L 12/24/18 06:40 Total Bilirubin 0.7 mg/dL (0.2-1) 12/24/18 06:40 AST 15 U/L (15-37) 12/24/18 06:40 ALT 15 U/L (13-61) 12/24/18 06:40 Alkaline Phosphatase 62 U/L (45-117) 12/24/18 06:40 Total Protein 6.4 g/dl (6.4-8.2) 12/24/18 06:40 Albumin 3.1 g/dl (3.4-5.0) L 12/24/18 06:40 CARDIAC ENZYMES Troponin I < 0.02 ng/ml (0.00-0.05) 12/23/18 20:26 Current Medications Generic Name Dose Route Start Last Admin Trade Name Freq PRN Reason Stop Dose Admin Acetaminophen 650 mg 12/24/18 07:04 12/24/18 08:00 Tylenol - PO 650 mg Q6H PRN Administration Fever Or Pain Level 1 - 5 Apixaban 5 mg 12/24/18 10:00 12/24/18 10:02 Eliquis - PO 5 mg BID DEANNA Administration Atorvastatin Calcium 20 mg 12/24/18 22:00 Lipitor - PO HS DEANNA Docusate Sodium 100 mg 12/23/18 22:18 Colace - PO Q8H PRN CONSTIPATION Ergocalciferol 50,000 unit 12/25/18 10:00 Drisdol - PO Wren@1000 DEANNA Fluticasone Propionate 1 spray 12/23/18 22:30 Flonase - NS DAILY PRN NASAL ALLERGY Sodium Chloride 1,000 mls @ 75 mls/hr 12/23/18 22:30 12/23/18 23:13 Normal Saline - IV 75 mls/hr ASDIR DEANNA Administration Ceftriaxone Sodium 2 gm/ 100 mls @ 100 mls/hr 12/24/18 10:00 12/24/18 10:02 Dextrose IVPB 100 mls/hr DAILY DEANNA Administration Insulin Aspart 1 vial 12/24/18 07:00 12/24/18 12:07 Novolog Vial Sliding Scale - SQ Not Given ACHS [facility] Protocol Metoprolol Succinate 50 mg 12/24/18 10:00 12/24/18 10:02 Toprol Xl - PO 50 mg DAILY DEANNA Administration Montelukast Sodium 10 mg 12/24/18 22:00 Singulair - PO [facility] Home Medications Medication Instructions Recorded Apixaban [Eliquis] 5 mg PO BID 12/18/15 Metoprolol Succinate [Toprol XL -] 50 mg PO DAILY 12/18/15 Simvastatin 40 mg PO HS 01/23/16 Ergocalciferol (Vitamin D2) 50,000 units PO WEEKLY 07/29/18 [Vitamin D2] Valsartan/Hydrochlorothiazide 1 tab PO DAILY 07/29/18 [Valsartan-Hctz 80-12.5 mg Tab] Albuterol Sulfate Inhaler - 1 - 2 inh PO QID 12/23/18 [Ventolin Hfa Inhaler -] Dexlansoprazole [Dexilant] 60 mg PO DAILY 12/23/18 Docusate Sodium [Colace -] 100 mg PO TID PRN 12/23/18 Fluticasone Prop 0.05% Nasal 1 spray NS PRN 12/23/18 [Flonase -] Metformin HCl [Metformin HCl ER] 500 mg PO DAILY 12/23/18 Montelukast Sodium [Singulair] 10 mg PO DAILY 12/23/18 Nitroglycerin [Nitrostat] 0.4 mg SL ASDIR PRN 12/23/18 Urine Test Results Urine Color Yellow 12/24/18 03:10 Urine Appearance Clear 12/24/18 03:10 Urine pH 6.5 (5.0-8.0) D 12/24/18 03:10 Ur Specific [place] 1.013 (1.010-1.035) 12/24/18 03:10 Urine Protein Negative (NEGATIVE) 12/24/18 03:10 Urine Glucose (UA) Negative (NEGATIVE) 12/24/18 03:10 Urine Ketones Negative (NEGATIVE) 12/24/18 03:10 Urine Blood Negative (NEGATIVE) 12/24/18 03:10 Urine Nitrite Negative (NEGATIVE) 12/24/18 03:10 Urine Bilirubin Negative (NEGATIVE) 12/24/18 03:10 Ur Leukocyte Esterase 2+ (NEGATIVE) H 12/24/18 03:10 Microbiology 12/24/18 00:20 Urine - Urine Clean Catch Urine Culture - Preliminary Lactose Fermenting Neg Bacilli 12/23/18 17:18 Blood - Peripheral Venous Blood Culture - Preliminary NO GROWTH OBTAINED AFTER 24 HOURS, INCUBATION TO CONTINUE FOR 4 DAYS. 12/23/18 17:18 Blood - Peripheral Venous Blood Culture - Preliminary NO GROWTH OBTAINED AFTER 24 HOURS, INCUBATION TO CONTINUE FOR 4 DAYS. CTAP: no acute pathology, solitary pulmonary nodule on preliminary read Assessment and plan: Patient is a 73 year old female with past medical history of HTN, HLD, DM, ventricular arrhythmias, A.fib s/p PPM (on eliquis), anxiety, presented to the ED due to 1 month history of generalized body aches and chest pain. # Acute chest pain r/o ACS ; Trop <0.02 x2; EKG showed T wave flattening on V4- V6 on repeat EKG. Echo, tele monitoring, stress test on Wednesday. cardio consulted. #Atrial fibrillation with RVR s/p PPM on the monitor will monitor, will continue Eliquis 5mg BID #Sepsis due to UTI; growing Lactose Fermenting Neg Bacilli, on IV Rocephin 2gm continue day #2 #HTN: will continue home meds. #HLD continue atorvastatin replaced by zocor #T2DM: Hold Metformin; will continue with Insulin sliding scale, BGM ACHS DVT Px: Eliquis 5mg BID Visit type - Emergency Visit Emergency Visit: Yes ED Registration Date: 12/23/18 Care time: The patient presented to the Emergency Department on the above date and was hospitalized for further evaluation of their emergent condition. - New Patient This patient is new to me today: Yes Date on this admission: 12/24/18 - Critical Care Critical Care patient: No - Discharge Referral Referred to [facility] Med P.C[facility] No
[2018-12-24] MEDS ORDERED: ATORVASTATIN CA 20 MG TABLET (FP) PO SCH (22:00)
[2018-12-24] MEDS: MONTELUKAST NA 10 MG TABLET PO SCH (22:27)
[2018-12-25] MEDS: SODIUM CHLORIDE 1,000 ML IV SCH ×2 (06:19→22:22)
[2018-12-25] MEDS: INSULIN SLIDING SCALE (NOVOLOG) 1 VIAL SQ SCH ×4 (06:20→22:29)
[2018-12-25] MEDS ORDERED: DEXTROSE 5%-WATER 100 ML IVPB ONE (08:05)
--- NOTE | 2018-12-25 09:06 | PN ---
Progress Note, Physician Chief Complaint: Events noted Denies chest pain or SOB this AM History of Present Illness: Patient was seen and examined. Awake and alert. Chart was reviewed - Current Medication List Current Medications: Active Medications Acetaminophen (Tylenol -) 650 mg PO Q6H PRN PRN Reason: Fever Or Pain Level 1 - 5 Last Admin: 12/24/18 22:27 Dose: 650 mg Apixaban (Eliquis -) 5 mg PO BID [facility] Last Admin: 12/24/18 22:27 Dose: 5 mg Atorvastatin Calcium (Lipitor -) 20 mg PO HS [facility] Last Admin: 12/24/18 22:27 Dose: 20 mg Docusate Sodium (Colace -) 100 mg PO Q8H PRN PRN Reason: CONSTIPATION Ergocalciferol (Drisdol -) 50,000 unit PO Wren@1000 DEANNA Fluticasone Propionate (Flonase -) 1 spray NS DAILY PRN PRN Reason: NASAL ALLERGY Sodium Chloride (Normal Saline -) 1,000 mls @ 75 mls/hr IV ASDIR [facility] Last Admin: 12/25/18 06:19 Dose: Not Given Ceftriaxone Sodium 2 gm/ (Dextrose) 100 mls @ 100 mls/hr IVPB DAILY [facility] Last Admin: 12/24/18 10:02 Dose: 100 mls/hr Insulin Aspart (Novolog Vial Sliding Scale -) 1 vial SQ [facility]; Protocol Last Admin: 12/25/18 06:20 Dose: Not Given Metoprolol Succinate (Toprol Xl -) 50 mg PO DAILY [facility] Last Admin: 12/24/18 10:02 Dose: 50 mg Montelukast Sodium (Singulair -) 10 mg PO [facility] Last Admin: 12/24/18 22:27 Dose: 10 mg - Objective Vital Signs: Vital Signs Temperature 98.4 F 12/25/18 06:00 Pulse Rate 70 12/25/18 06:00 Respiratory Rate 18 12/25/18 06:00 Blood Pressure 110/56 L 12/25/18 06:00 O2 Sat by Pulse Oximetry (%) 97 12/24/18 21:00 Eyes: Yes: PERRL HENT: Yes: Atraumatic Neck: Yes: Supple Cardiovascular: Yes: Regular Rate and Rhythm, S1, S2 Respiratory: Yes: CTA Bilaterally Gastrointestinal: Yes: Normal Bowel Sounds, Soft. No: Tenderness Edema: No Additional Findings/Remarks: - Review of Systems Constitutional: denies: Chills, Fever Cardiovascular: reports: Chest Pain, Shortness of Breath. denies: Palpitations Respiratory: reports: SOB. denies: Cough, Hemoptysis, Orthopnea, PND, Wheezing Gastrointestinal: denies: Abdominal Pain, Constipation, Diarrhea, Dysphagia Genitourinary: denies: Discharge, Hematuria Neurological: denies: Dizziness, Headache, Seizure, Syncope Labs: CBC, BMP 12/24/18 06:40 12/24/18 06:40 Problem List - Problems (1) Chest pain Code(s): R07.9 - CHEST PAIN, UNSPECIFIED (2) Afib Code(s): I48.91 - UNSPECIFIED ATRIAL FIBRILLATION Qualifiers: Atrial fibrillation type: paroxysmal Qualified Code(s): I48.0 - Paroxysmal atrial fibrillation (3) DM (diabetes mellitus) Code(s): E11.9 - TYPE 2 DIABETES MELLITUS WITHOUT COMPLICATIONS Qualifiers: Diabetes mellitus type: type 2 Diabetes mellitus 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 insulin use: without 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 use Diabetes mellitus complication status: without complication Qualified Code(s): E11.9 - Type 2 diabetes mellitus without complications (4) HLD (hyperlipidemia) Code(s): E78.5 - HYPERLIPIDEMIA, UNSPECIFIED Qualifiers: Hyperlipidemia type: pure hypercholesterolemia Qualified Code(s): E78.00 - Pure hypercholesterolemia, unspecified; E78.0 - Pure hypercholesterolemia (5) HTN (hypertension) Code(s): I10 - ESSENTIAL (PRIMARY) HYPERTENSION Qualifiers: Hypertension type: essential hypertension Qualified Code(s): I10 - Essential (primary) hypertension Assessment/Plan 1. Chest pain syndrome, etiology to be determined 2. HTN 3. Hypercholesterolemia 4. DM 5. PAF on DOAC ([id number] score of at least 4) PLAN: 1. Continue current medical therapy including Eliquis 5 mg BID and Toprol XL 50 mg QD. Add ACEI or ARB if BP permits 2. Continue Lipitor 20 mg QHS 3. Echocardiography to assess LV/RV and valvular function 4. Trend troponins 5. Nuclear MPI Further plans are to follow Ncik Calvo MD
[2018-12-25] MEDS: APIXABAN 5 MG TABLET PO SCH ×2 (09:08→22:22)
[2018-12-25] MEDS: CEFTRIAXONE 2 GM in DEXTROSE 5%-WATER 100 ML IVPB SCH (09:09)
--- NOTE | 2018-12-25 09:53 | PN ---
Physical Exam: SUBJECTIVE: Patient seen and examined this AM. Patient has episodes of tachycardia overnight during which she reports palpitations. Otherwise has no new complaints; Denies nausea, vomiting, diarrhea, constipation. No chest pain or SOB. OBJECTIVE: Vital Signs Period Temp Pulse Resp BP Sys/Degroot Pulse Ox Last 24 Hr 98 F-100.0 F 70-130 18-20 104-118/56-86 97 GENERAL: A&Ox3, NAD HEAD: NCAT EYES: PERRL, EOMI ENT: moist mucous membranes. NECK: Supple. No JVD LUNGS: Diminished breath sounds at the bases, no wheezes, no crackles HEART: Irregular, S1, S2 without murmur ABDOMEN: Soft, Mild tendeness to palpation throughout, nondistended, + bowel sounds, no guarding EXTREMITIES: no edema. NEUROLOGICAL: Cranial nerves II through XII grossly intact. SKIN: Warm, dry Laboratory Results - last 24 hr 12/24/18 12/24/18 12/24/18 12:02 16:57 22:26 POC Glucometer 107 110 95 12/25/18 05:57 POC Glucometer 110 Microbiology 12/24/18 00:20 Urine - Urine Clean Catch Urine Culture - Preliminary Lactose Fermenting Neg Bacilli 12/23/18 17:18 Blood - Peripheral Venous Blood Culture - Preliminary NO GROWTH OBTAINED AFTER 24 HOURS, INCUBATION TO CONTINUE FOR 4 DAYS. 12/23/18 17:18 Blood - Peripheral Venous Blood Culture - Preliminary NO GROWTH OBTAINED AFTER 24 HOURS, INCUBATION TO CONTINUE FOR 4 DAYS. Active Medications Acetaminophen (Tylenol -) 650 mg PO Q6H PRN PRN Reason: Fever Or Pain Level 1 - 5 Last Admin: 12/24/18 22:27 Dose: 650 mg Apixaban (Eliquis -) 5 mg PO BID [facility] Last Admin: 12/25/18 09:08 Dose: 5 mg Atorvastatin Calcium (Lipitor -) 20 mg PO HS [facility] Last Admin: 12/24/18 22:27 Dose: 20 mg Docusate Sodium (Colace -) 100 mg PO Q8H PRN PRN Reason: CONSTIPATION Ergocalciferol (Drisdol -) 50,000 unit PO Wren@1000 DEANNA Fluticasone Propionate (Flonase -) 1 spray NS DAILY PRN PRN Reason: NASAL ALLERGY Sodium Chloride (Normal Saline -) 1,000 mls @ 75 mls/hr IV ASDIR [facility] Last Admin: 12/25/18 06:19 Dose: Not Given Ceftriaxone Sodium 2 gm/ (Dextrose) 100 mls @ 100 mls/hr IVPB DAILY [facility] Last Admin: 12/25/18 09:09 Dose: 100 mls/hr Insulin Aspart (Novolog Vial Sliding Scale -) 1 vial SQ ACHS [facility]; Protocol Last Admin: 12/25/18 06:20 Dose: Not Given Metoprolol Succinate (Toprol Xl -) 50 mg PO DAILY [facility] Last Admin: 12/25/18 09:08 Dose: 50 mg Montelukast Sodium (Singulair -) 10 mg PO HS [facility] Last Admin: 12/24/18 22:27 Dose: 10 mg IMAGING: -CT A/P w/o contrast: In comparison to a prior exam of 12/06/2007 interval development of mild left perirenal soft tissue stranding is seen as well as associated mild thickening of the left anterior and posterior pararenal fascia - ? possible acute pyelonephritis versus representing the sequela of previous infection/inflammation. If clinically indicated additional evaluation utilizing contrast enhanced multiphase CT/CT urography may be performed. Development of a nonspecific 0.5 cm noncalcified right lower lobe subpleural nodule is noted posteriorly. Correlate with 3 month follow-up CT. The remainder of the exam demonstrates no obvious interval change as discussed above. -DUPLEX: No DVT is identified involving either leg. Please see above. -CXR: No significant interval change or acute cardiopulmonary disease is present. ASSESSMENT/PLAN: 73 y/o F with PMHx HTN, HLD, DM, ventricular arrhythmias, A.fib s/p PPM (on eliquis), anxiety, presented with chest pain and was admitted for Sepsis. #Sepsis (Lactic acidosis, Leukocytosis) -Likely due to UTI -Imaging noted above -Urine culture: Lactose fermenting neg bacilli -IV Ceftriaxone 2gm (ABx course started on 12/23) -NS @ 75 mls/hr #Chest pain -R/O ACS -Trop <0.02 x2 -Echo pending -Tele monitoring -Cardiology consulted, appreciate rec's #Atrial fibrillation---Episodic Tachycardia -On Apixaban 5mg BID -Increase Metoprolol succinate to 75mg #HTN---Currently normotensive -Home antihypertensives held #HLD -Atorvastatin 40mg daily #DM -ISS BGMs ACHS #FEN -NS @ 75 mls/hr -Monitor lytes -Diabetic diet #PPx -Apixaban 5mg BID Visit type - Emergency Visit Emergency Visit: Yes ED Registration Date: 12/23/18 Care time: The patient presented to the Emergency Department on the above date and was hospitalized for further evaluation of their emergent condition. - New Patient This patient is new to me today: Yes Date on this admission: 12/25/18 - Critical Care Critical Care patient: No - Discharge Referral Referred to [facility] Med P.C.: No
[2018-12-25] MEDS ORDERED: ERGOCALCIFEROL (VITAMIN D2) 50,000 UNIT CAPSULE (FP) PO SCH (10:00)
--- NOTE | 2018-12-25 12:10 | PN ---
Teaching Attending Note Name of Resident: Denise Heredia ATTENDING PHYSICIAN STATEMENT I saw and evaluated the patient. I reviewed the resident's note and discussed the case with the resident. I agree with the resident's findings and plan as documented. SUBJECTIVE: Patient is feeling better with no acute distress, continues to feel tired. no fever overnight. OBJECTIVE: Vital Signs Temperature 98 F 12/25/18 09:00 Pulse Rate 74 12/25/18 11:29 Respiratory Rate 20 12/25/18 11:29 Blood Pressure 111/68 12/25/18 11:29 O2 Sat by Pulse Oximetry (%) 97 12/25/18 09:00 GENERAL: The patient is awake, alert, and fully oriented, in no acute distress. HEAD: Normal with no signs of trauma. EYES: PERRL, extraocular movements intact, sclera anicteric, conjunctiva clear. ENT: Ears normal, oropharynx clear without exudates, moist mucous membranes. NECK: Trachea midline, full range of motion, supple. LUNGS: Breath sounds equal, clear to auscultation bilaterally, no wheezes, no crackles, no accessory muscle use. HEART: Regular rate and rhythm, S1, S2 without murmur, rub or gallop. ABDOMEN: Soft, nontender, nondistended, normoactive bowel sounds, no guarding, no rebound, no hepatosplenomegaly, no masses appreciated. EXTREMITIES: 2+ pulses, warm, well-perfused, no edema. NEUROLOGICAL: Cranial nerves II through XII grossly intact. Normal speech, gait not observed. PSYCH: Normal mood, normal affect. SKIN: Warm, dry, normal turgor, no rashes or lesions noted CBCD WBC 10.6 K/mm3 (4.0-10.0) H 12/24/18 06:40 RBC 3.92 M/mm3 (3.60-5.2) 12/24/18 06:40 Hgb 10.8 GM/dL (10.7-15.3) 12/24/18 06:40 Hct 33.0 % (32.4-45.2) 12/24/18 06:40 MCV 84.2 fl (80-96) 12/24/18 06:40 MCHC 32.8 g/dl (32.0-36.0) 12/24/18 06:40 RDW 14.4 % (11.6-15.6) 12/24/18 06:40 Plt Count 171 K/MM3 (134-434) 12/24/18 06:40 MPV 9.6 fl (7.5-11.1) 12/24/18 06:40 CMP Sodium 140 mmol/L (136-145) 12/24/18 06:40 Potassium 4.2 mmol/L (3.5-5.1) 12/24/18 06:40 Chloride 105 mmol/L (98-107) 12/24/18 06:40 Carbon Dioxide 29 mmol/L (21-32) 12/24/18 06:40 Anion Gap 6 MMOL/L (8-16) L 12/24/18 06:40 BUN 11 mg/dL (7-18) 12/24/18 06:40 Creatinine 0.7 mg/dL (0.55-1.3) 12/24/18 06:40 Creat Clearance w eGFR 82.25 (>60) 12/24/18 06:40 Random Glucose 112 mg/dL (74-106) H 12/24/18 06:40 Calcium 8.0 mg/dL (8.5-10.1) L 12/24/18 06:40 Total Bilirubin 0.7 mg/dL (0.2-1) 12/24/18 06:40 AST 15 U/L (15-37) 12/24/18 06:40 ALT 15 U/L (13-61) 12/24/18 06:40 Alkaline Phosphatase 62 U/L (45-117) 12/24/18 06:40 Total Protein 6.4 g/dl (6.4-8.2) 12/24/18 06:40 Albumin 3.1 g/dl (3.4-5.0) L 12/24/18 06:40 CARDIAC ENZYMES Troponin I < 0.02 ng/ml (0.00-0.05) 12/23/18 20:26 Current Medications Generic Name Dose Route Start Last Admin Trade Name Freq PRN Reason Stop Dose Admin Acetaminophen 650 mg 12/24/18 07:04 12/24/18 22:27 Tylenol - PO 650 mg Q6H PRN Administration Fever Or Pain Level 1 - 5 Apixaban 5 mg 12/24/18 10:00 12/25/18 09:08 Eliquis - PO 5 mg BID DEANNA Administration Atorvastatin Calcium 20 mg 12/24/18 22:00 12/24/18 22:27 Lipitor - PO 20 mg HS [facility] Administration Docusate Sodium 100 mg 12/23/18 22:18 Colace - PO Q8H PRN CONSTIPATION Ergocalciferol 50,000 unit 12/25/18 10:00 Drisdol - PO Wren@1000 DEANNA Fluticasone Propionate 1 spray 12/23/18 22:30 Flonase - NS DAILY PRN NASAL ALLERGY Sodium Chloride 1,000 mls @ 75 mls/hr 12/23/18 22:30 12/25/18 06:19 Normal Saline - IV Not Given ASDIR DEANNA Ceftriaxone Sodium 2 gm/ 100 mls @ 100 mls/hr 12/24/18 10:00 12/25/18 09:09 Dextrose IVPB 100 mls/hr DAILY DEANNA Administration Insulin Aspart 1 vial 12/24/18 07:00 12/25/18 06:20 Novolog Vial Sliding Scale - SQ Not Given ACHS [facility] Protocol Metoprolol Succinate 75 mg 12/25/18 10:00 Toprol Xl - PO DAILY [facility] Montelukast Sodium 10 mg 12/24/18 22:00 12/24/18 22:27 Singulair - PO 10 mg HS DEANNA Administration Ranitidine HCl 150 mg 12/25/18 11:57 Zantac - PO 12/25/18 11:58 ONCE ONE Home Medications Medication Instructions Recorded Apixaban [Eliquis] 5 mg PO BID 12/18/15 Metoprolol Succinate [Toprol XL -] 50 mg PO DAILY 12/18/15 Simvastatin 40 mg PO HS 01/23/16 Ergocalciferol (Vitamin D2) 50,000 units PO WEEKLY 07/29/18 [Vitamin D2] Valsartan/Hydrochlorothiazide 1 tab PO DAILY 07/29/18 [Valsartan-Hctz 80-12.5 mg Tab] Albuterol Sulfate Inhaler - 1 - 2 inh PO QID 12/23/18 [Ventolin Hfa Inhaler -] Dexlansoprazole [Dexilant] 60 mg PO DAILY 12/23/18 Docusate Sodium [Colace -] 100 mg PO TID PRN 12/23/18 Fluticasone Prop 0.05% Nasal 1 spray NS PRN 12/23/18 [Flonase -] Metformin HCl [Metformin HCl ER] 500 mg PO DAILY 12/23/18 Montelukast Sodium [Singulair] 10 mg PO DAILY 12/23/18 Nitroglycerin [Nitrostat] 0.4 mg SL ASDIR PRN 12/23/18 Microbiology 12/24/18 00:20 Urine - Urine Clean Catch Urine Culture - Preliminary Lactose Fermenting Neg Bacilli 12/23/18 17:18 Blood - Peripheral Venous Blood Culture - Preliminary NO GROWTH OBTAINED AFTER 24 HOURS, INCUBATION TO CONTINUE FOR 4 DAYS. 12/23/18 17:18 Blood - Peripheral Venous Blood Culture - Preliminary NO GROWTH OBTAINED AFTER 24 HOURS, INCUBATION TO CONTINUE FOR 4 DAYS. Assessment and plan: Patient is a 73 year old female with past medical history of HTN, HLD, DM, ventricular arrhythmias, A.fib s/p PPM (on eliquis), anxiety, presented to the ED due to 1 month history of generalized body aches and chest pain. # Acute chest pain r/o ACS ; Trop .negative so far; EKG showed T wave flattening on V4-V6 on repeat EKG. patient is going for echo and stress test in am nuclear.cardio. . As per cardio recommendation to add koki-I, but bp is on lower side will monitor. #Atrial fibrillation with RVR on the monitor is 120s, willincrease the dose of Lopressor XL to 75mg s/p PPM on the monitor will monitor, will continue Eliquis 5mg BID #Sepsis due to UTI; growing Lactose Fermenting Neg Bacilli, on IV Rocephin 2gm continue day #3 continue,leukocytosis improving #HTN: will continue home meds. #HLD continue atorvastatin 40mg replaced by zocor #T2DM: Hold Metformin; will continue with Insulin sliding scale, BGM ACHS DVT Px: Eliquis 5mg BID
[2018-12-25] MEDS ORDERED: RANITIDINE HCL 150 MG TABLET (FP) PO ONE ×2 (12:15→21:00)
[2018-12-25] MEDS: ATORVASTATIN CA 40 MG TABLET (FP) PO SCH (22:22)
[2018-12-25] MEDS: MONTELUKAST NA 10 MG TABLET PO SCH (22:22)
[2018-12-26] MEDS: INSULIN SLIDING SCALE (NOVOLOG) 1 VIAL SQ SCH ×4 (06:02→21:54)
[2018-12-26 06:28] LABS: BASO % 0.6 % (0-2.0); EOS % 2.6 % (0-4.5); HEMATOCRIT 30.7 % (32.4-45.2); HEMOGLOBIN 10.2 GM/dL (10.7-15.3); LYMPH % 27.1 % (8-40); MCH 27.9 pg (25.7-33.7); MCHC 33.1 g/dl (32.0-36.0); MEAN CELL VOLUME 84.3 fl (80-96); MEAN PLT VOLUME 9.4 fl (7.5-11.1); MONO % 18.4 % (3.8-10.2); NEUT % 51.3 % (42.8-82.8); PLATELET COUNT 194 K/MM3 (134-434); RBC 3.64 M/mm3 (3.60-5.2); RDW 14.4 % (11.6-15.6); WHITE BLOOD COUNT 5.8 K/mm3 (4.0-10.0)
[2018-12-26] MEDS ORDERED: REGADENOSON 0.4 MG/5 ML PRE-FILLED SYRINGE IVPUSH ONE ×2 (09:37→09:45)
[2018-12-26] MEDS ORDERED: DEXTROSE 5%-WATER 100 ML IVPB ONE (09:50)
--- NOTE | 2018-12-26 10:33 | EKG ---
Test Reason : Blood Pressure : / mmHG Vent. Rate : 082 BPM Atrial Rate : 072 BPM P-R Int : 204 ms QRS Dur : 078 ms QT Int : 382 ms P-R-T Axes : 017 011 018 degrees QTc Int : 446 ms Atrial-paced rhythm WITH OCCASIONAL and consecutive sinus complexes AND WITH OCCASIONAL PREMATURE VENTRICULAR COMPLEXES ABNORMAL ECG WHEN COMPARED WITH ECG OF 24-DEC-2018 09:40, ELECTRONIC ATRIAL PACEMAKER HAS REPLACED ELECTRONIC VENTRICULAR PACEMAKER Confirmed by ADÁN MCCLOUD, MORENO ([id number]) on 12/26/2018 10:32:28 AM Referred By: Confirmed By:MORENO MCCAIN MD
--- NOTE | 2018-12-26 10:36 | EKG ---
Test Reason : Blood Pressure : / mmHG Vent. Rate : 077 BPM Atrial Rate : 077 BPM P-R Int : 162 ms QRS Dur : 084 ms QT Int : 382 ms P-R-T Axes : 043 012 036 degrees QTc Int : 432 ms SINUS RHYTHM WITH OCCASIONAL AV dual-paced complexes ABNORMAL ECG WHEN COMPARED WITH ECG OF 23-DEC-2018 20:38, ELECTRONIC VENTRICULAR PACEMAKER HAS REPLACED ELECTRONIC ATRIAL PACEMAKER Confirmed by ADÁN MCCLOUD, MORENO ([id number]) on 12/26/2018 10:35:45 AM Referred By: Arianna BUCK Confirmed By:MORENO MCCAIN MD
--- NOTE | 2018-12-26 10:38 | EKG ---
Test Reason : Blood Pressure : / mmHG Vent. Rate : 070 BPM Atrial Rate : 070 BPM P-R Int : 198 ms QRS Dur : 080 ms QT Int : 404 ms P-R-T Axes : 024 018 052 degrees QTc Int : 436 ms Atrial-paced rhythm NONSPECIFIC T WAVE ABNORMALITY ABNORMAL ECG WHEN COMPARED WITH ECG OF 29-JUL-2018 05:57, NONSPECIFIC T WAVE ABNORMALITY NOW EVIDENT IN LATERAL LEADS Confirmed by ADÁN MCCLOUD, MORENO ([id number]) on 12/26/2018 10:37:31 AM Referred By: Confirmed By:MORENO MCCAIN MD
--- NOTE | 2018-12-26 10:42 | EKG ---
Test Reason : Blood Pressure : / mmHG Vent. Rate : 103 BPM Atrial Rate : 103 BPM P-R Int : 146 ms QRS Dur : 070 ms QT Int : 326 ms P-R-T Axes : 046 015 023 degrees QTc Int : 427 ms SINUS TACHYCARDIA POSSIBLE LEFT ATRIAL ENLARGEMENT BORDERLINE ECG WHEN COMPARED WITH ECG OF 29-JUL-2018 05:57, SINUS RHYTHM HAS REPLACED ELECTRONIC ATRIAL PACEMAKER QUESTIONABLE CHANGE IN QRS DURATION Confirmed by THAO BLANCA MD ([id number]) on 12/26/2018 10:42:15 AM Referred By: Confirmed By:THAO BLANCA MD
--- NOTE | 2018-12-26 12:17 | ECHO ---
Name: KASIA BERGMAN Exam:Adult Echocardiogram Study Date: 12/26/2018 08:19 AM Age: 73 yrs Reason For Study: RULE OUT ACS Height: 62 in Weight: 150 lb BSA: 1.7 m2 MMode/2D Measurements & Calculations IVSd: 1.4 cm Ao root diam: 2.9 cm LVIDd: 3.4 cm LA dimension: 4.9 cm LVIDs: 2.4 cm LVPWd: 1.1 cm EDV(Teich): 47.0 ml LVOT diam: 2.0 cm ESV(Teich): 20.2 ml LAV (MOD-bp): 75.8 ml Doppler Measurements & Calculations MV E max tawanda: 78.6 cm/sec Ao V2 max: 129.0 cm/sec MV A max tawanda: 72.3 cm/sec Ao max P.7 mmHg MV E/A: 1.1 AI P1/2t: 504.8 msec MV dec time: 0.11 sec WILLIAM(V,D): 3.0 cm2 AI max tawanda: 397.0 cm/sec LV V1 max P.6 mmHg AI max P.1 mmHg LV V1 max: 117.9 cm/sec AI dec slope: 230.4 cm/sec2 MR max tawanda: 475.5 cm/sec TR max tawanda: 320.0 cm/sec MR max P.6 mmHg TR max P.3 mmHg PA V2 max: 82.8 cm/sec Med Peak E' Tawanda: 6.4 cm/sec PA max P.7 mmHg Med E/e': 12.2 Lat Peak E' Tawanda: 7.2 cm/sec Lat E/e': 10.9 PI Vmax: 186.0 cm/sec Procedure The study was technically good with many images being of high quality. Left Ventricle The left ventricular size, thickness and function are normal. There is mild asymmetric left ventricul ar hypertrophy. Left ventricular systolic function is normal. Ejection Fraction = 60-65%. The transmitra l spectral Doppler flow pattern is normal for age. Right Ventricle The right ventricle is normal in size and function. There is a pacemaker lead in the right ventricle. Atria The left atrium is mildly dilated. Right atrial size is normal. The atrial septum is aneurysmal. Mitral Valve The mitral valve is grossly normal. There is mild mitral regurgitation. Tricuspid Valve The tricuspid valve is not well visualized, but is grossly normal. There is moderate tricuspid regurg itation. Right ventricular systolic pressure is elevated at 47 mmhg. Aortic Valve The aortic valve opens well. There is mild aortic sclerosis.;. The aortic valve is trileaflet. Modera te aortic regurgitation. Pulmonic Valve The pulmonic valve is not well visualized. Mild to moderate pulmonic valvular regurgitation. Great Vessels The aortic root is normal size. Pericardium/Pleura There is no pericardial effusion. Interpretation Summary Compared to the prior echo report on 07/29/2018, there is no significant change. The left ventricular size, thickness and function are normal There is mild asymmetric left ventricular hypertrophy. Left ventricular systolic function is normal. Ejection Fraction = 60-65%. Mild to moderate pulmonic valvular regurgitation. There is mild mitral regurgitation. The right ventricle is normal in size and function. There is a pacemaker lead in the right ventricle. There is moderate tricuspid regurgitation. Compared to the prior echo report on 07/29/2018, there is no significant change. The atrial septum is aneurysmal. Moderate aortic regurgitation. Lucius Randolph MD 12/26/2018 12:17 PM
--- NOTE | 2018-12-26 12:43 | PN ---
Progress Note, Physician - Current Medication List Current Medications: Active Medications Acetaminophen (Tylenol -) 650 mg PO Q6H PRN PRN Reason: Fever Or Pain Level 1 - 5 Last Admin: 12/24/18 22:27 Dose: 650 mg Apixaban (Eliquis -) 5 mg PO BID [facility] Last Admin: 12/25/18 22:22 Dose: 5 mg Atorvastatin Calcium (Lipitor -) 40 mg PO HS [facility] Last Admin: 12/25/18 22:22 Dose: 40 mg Docusate Sodium (Colace -) 100 mg PO Q8H PRN PRN Reason: CONSTIPATION Ergocalciferol (Drisdol -) 50,000 unit PO Wren@1000 [facility] Fluticasone Propionate (Flonase -) 1 spray NS DAILY PRN PRN Reason: NASAL ALLERGY Sodium Chloride (Normal Saline -) 1,000 mls @ 75 mls/hr IV ASDIR [facility] Last Admin: 12/25/18 22:22 Dose: 75 mls/hr Ceftriaxone Sodium 2 gm/ (Dextrose) 100 mls @ 100 mls/hr IVPB DAILY [facility] Last Admin: 12/25/18 09:09 Dose: 100 mls/hr Insulin Aspart (Novolog Vial Sliding Scale -) 1 vial SQ [facility]; Protocol Last Admin: 12/26/18 06:02 Dose: Not Given Metoprolol Succinate (Toprol Xl -) 75 mg PO DAILY [facility] Last Admin: 12/25/18 09:00 Dose: 75 mg Montelukast Sodium (Singulair -) 10 mg PO [facility] Last Admin: 12/25/18 22:22 Dose: 10 mg - Objective Vital Signs: Vital Signs Temperature 98.8 F 12/26/18 07:53 Pulse Rate 70 12/26/18 07:53 Respiratory Rate 18 12/26/18 07:53 Blood Pressure 134/74 12/26/18 07:53 O2 Sat by Pulse Oximetry (%) 95 12/25/18 21:00 Eyes: Yes: WNL, Conjunctiva Clear, EOM Intact HENT: Yes: WNL, Atraumatic, Normocephalic Neck: Yes: WNL, Supple, Trachea Midline Cardiovascular: Yes: WNL, Regular Rate and Rhythm Respiratory: Yes: WNL, Regular, CTA Bilaterally Gastrointestinal: Yes: WNL, Normal Bowel Sounds Genitourinary: Yes: WNL Musculoskeletal: Yes: WNL Extremities: Yes: WNL Edema: No Integumentary: Yes: WNL Neurological: Yes: WNL, Alert, Oriented ...Motor Strength: WNL Psychiatric: Yes: WNL Labs: CBC, BMP 12/26/18 05:30 12/24/18 06:40 INR, PTT INR 1.18 (0.83-1.09) H 12/23/18 17:55 Assessment/Plan 1. Chest pain syndrome, etiology to be determined 2. HTN 3. Hypercholesterolemia 4. DM 5. PAF on DOAC ([id number] score of at least 4) PLAN: 1. Continue current medical therapy including Eliquis 5 mg BID and Toprol XL 50 mg QD. Add ACEI or ARB if BP permits 2. Continue Lipitor 20 mg QHS 3. Echocardiography to assess LV/RV and valvular function 4. Trend troponins 5. Nuclear MPI
[2018-12-26] MEDS: CEFTRIAXONE 2 GM in DEXTROSE 5%-WATER 100 ML IVPB SCH (13:07)
[2018-12-26] MEDS: APIXABAN 5 MG TABLET PO SCH ×2 (13:21→21:53)
--- NOTE | 2018-12-26 13:56 | PN ---
Physical Exam: SUBJECTIVE: Patient seen and examined this AM. For stress test this AM. No new complaints. OBJECTIVE: Vital Signs Period Temp Pulse Resp BP Sys/Degroot Pulse Ox Last 24 Hr 97.0 F-98.8 F 70-77 18-20 122-134/68-78 95-95 GENERAL: A&Ox3, NAD HEAD: NCAT EYES: PERRL, EOMI ENT: moist mucous membranes. NECK: Supple. No JVD LUNGS: Diminished breath sounds at the bases, no wheezes, no crackles HEART: Irregular, S1, S2 without murmur ABDOMEN: Soft, Nontender, nondistended, + bowel sounds, no guarding EXTREMITIES: no edema. NEUROLOGICAL: Cranial nerves II through XII grossly intact. SKIN: Warm, dry Laboratory Results - last 24 hr 12/25/18 12/25/18 12/25/18 12:55 16:57 22:28 WBC RBC Hgb Hct MCV MCH MCHC RDW Plt Count MPV Absolute Neuts (auto) Neutrophils % Lymphocytes % Monocytes % Eosinophils % Basophils % Nucleated RBC % POC Glucometer 136 133 Troponin I < 0.02 12/26/18 12/26/18 12/26/18 05:30 05:30 12:59 WBC 5.8 RBC 3.64 Hgb 10.2 L Hct 30.7 L MCV 84.3 MCH 27.9 MCHC 33.1 RDW 14.4 Plt Count 194 MPV 9.4 Absolute Neuts (auto) 3.0 Neutrophils % 51.3 D Lymphocytes % 27.1 D Monocytes % 18.4 H Eosinophils % 2.6 D Basophils % 0.6 Nucleated RBC % 0 POC Glucometer 114 117 Troponin I Microbiology 12/24/18 00:20 Urine - Urine Clean Catch Urine Culture - Final Escherichia Coli 12/23/18 17:18 Blood - Peripheral Venous Blood Culture - Preliminary NO GROWTH OBTAINED AFTER 48 HOURS, INCUBATION TO CONTINUE FOR 3 DAYS. 12/23/18 17:18 Blood - Peripheral Venous Blood Culture - Preliminary NO GROWTH OBTAINED AFTER 48 HOURS, INCUBATION TO CONTINUE FOR 3 DAYS. Active Medications Acetaminophen (Tylenol -) 650 mg PO Q6H PRN PRN Reason: Fever Or Pain Level 1 - 5 Last Admin: 12/24/18 22:27 Dose: 650 mg Apixaban (Eliquis -) 5 mg PO BID DEANNA Last Admin: 12/26/18 13:21 Dose: 5 mg Atorvastatin Calcium (Lipitor -) 40 mg PO HS [facility] Last Admin: 12/25/18 22:22 Dose: 40 mg Docusate Sodium (Colace -) 100 mg PO Q8H PRN PRN Reason: CONSTIPATION Ergocalciferol (Drisdol -) 50,000 unit PO Wren@1000 DEANNA Fluticasone Propionate (Flonase -) 1 spray NS DAILY PRN PRN Reason: NASAL ALLERGY Sodium Chloride (Normal Saline -) 1,000 mls @ 75 mls/hr IV ASDIR [facility] Last Admin: 12/25/18 22:22 Dose: 75 mls/hr Ceftriaxone Sodium 2 gm/ (Dextrose) 100 mls @ 100 mls/hr IVPB DAILY [facility] Last Admin: 12/26/18 13:07 Dose: 100 mls/hr Insulin Aspart (Novolog Vial Sliding Scale -) 1 vial SQ ACHS [facility]; Protocol Last Admin: 12/26/18 13:01 Dose: Not Given Metoprolol Succinate (Toprol Xl -) 75 mg PO DAILY [facility] Last Admin: 12/26/18 13:21 Dose: 75 mg Montelukast Sodium (Singulair -) 10 mg PO [facility] Last Admin: 12/25/18 22:22 Dose: 10 mg Ambulatory Orders Apixaban [Eliquis] 5 mg PO BID 12/18/15 Metoprolol Succinate [Toprol XL -] 50 mg PO DAILY 12/18/15 Simvastatin 40 mg PO HS 01/23/16 Ergocalciferol (Vitamin D2) [Vitamin D2] 50,000 units PO WEEKLY 07/29/18 Valsartan/Hydrochlorothiazide [Valsartan-Hctz 80-12.5 mg Tab] 1 tab PO DAILY Albuterol Sulfate Inhaler - [Ventolin Hfa Inhaler -] 1 - 2 inh PO QID 12/23/18 Dexlansoprazole [Dexilant] 60 mg PO DAILY 12/23/18 Docusate Sodium [Colace -] 100 mg PO TID PRN 12/23/18 Fluticasone Prop 0.05% Nasal [Flonase -] 1 spray NS PRN 12/23/18 Metformin HCl [Metformin HCl ER] 500 mg PO DAILY 12/23/18 Montelukast Sodium [Singulair] 10 mg PO DAILY 12/23/18 Nitroglycerin [Nitrostat] 0.4 mg SL ASDIR PRN 12/23/18 IMAGING: -CT A/P w/o contrast: In comparison to a prior exam of 12/06/2007 interval development of mild left perirenal soft tissue stranding is seen as well as associated mild thickening of the left anterior and posterior pararenal fascia - ? possible acute pyelonephritis versus representing the sequela of previous infection/inflammation. If clinically indicated additional evaluation utilizing contrast enhanced multiphase CT/CT urography may be performed. Development of a nonspecific 0.5 cm noncalcified right lower lobe subpleural nodule is noted posteriorly. Correlate with 3 month follow-up CT. The remainder of the exam demonstrates no obvious interval change as discussed above. -DUPLEX: No DVT is identified involving either leg. Please see above. -CXR: No significant interval change or acute cardiopulmonary disease is present. -Echo: LV Size function and thickness are normal. Mild Asymmetric LVH. LV Systolic function is normal. EF = 60-65%. Mild MR. Moderate TR and AR. Atrial septum is aneurysmal. ASSESSMENT/PLAN: 73 y/o F with PMHx HTN, HLD, DM, ventricular arrhythmias, A.fib s/p PPM (on eliquis), anxiety, presented with chest pain and was admitted for Sepsis. #Sepsis (Lactic acidosis, Leukocytosis) -Urine culture: Lactose fermenting neg bacilli -IV Ceftriaxone 2gm (ABx course started on 12/23) -NS @ 75 mls/hr #Chest pain --R/O ACS -Trop <0.02 x2 -Echo noted above -Tele monitoring -Cardiology consulted, appreciate rec's #Atrial fibrillation---Episodic Tachycardia -Apixaban 5mg BID -Metoprolol succinate 75mg daily #HTN---Currently normotensive -Home antihypertensives held #HLD -Atorvastatin 40mg daily #DM -ISS BGMs ACHS #FEN -NS @ 75 mls/hr -Monitor lytes -Diabetic diet #PPx -Apixaban 5mg BID Visit type - Emergency Visit Emergency Visit: Yes ED Registration Date: 12/23/18 Care time: The patient presented to the Emergency Department on the above date and was hospitalized for further evaluation of their emergent condition. - New Patient This patient is new to me today: No - Critical Care Critical Care patient: No - Discharge Referral Referred to [facility] Med [facility].: No
--- NOTE | 2018-12-26 14:13 | PN ---
Teaching Attending Note Name of Resident: Denise Heredia ATTENDING PHYSICIAN STATEMENT I saw and evaluated the patient. I reviewed the resident's note and discussed the case with the resident. I agree with the resident's findings and plan as documented. SUBJECTIVE: Patient is comfortable, going for stress test today, no further chest pain, no short pain, no nausea or vomiting. OBJECTIVE: Vital Signs Temperature 98.8 F 12/26/18 07:53 Pulse Rate 70 12/26/18 07:53 Respiratory Rate 18 12/26/18 07:53 Blood Pressure 134/74 12/26/18 07:53 O2 Sat by Pulse Oximetry (%) 95 12/26/18 12:43 GENERAL: The patient is awake, alert, and fully oriented, in no acute distress. HEAD: Normal with no signs of trauma. EYES: PERRL, extraocular movements intact, sclera anicteric, conjunctiva clear. ENT: Ears normal, oropharynx clear without exudates, moist mucous membranes. NECK: Trachea midline, full range of motion, supple. LUNGS: Breath sounds equal, clear to auscultation bilaterally, no wheezes, no crackles, no accessory muscle use. HEART: Regular rate and rhythm, S1, S2 without murmur, rub or gallop. ABDOMEN: Soft, nontender, nondistended, normoactive bowel sounds, no guarding, no rebound, no hepatosplenomegaly, no masses appreciated. EXTREMITIES: 2+ pulses, warm, well-perfused, no edema. NEUROLOGICAL: Cranial nerves II through XII grossly intact. Normal speech, gait not observed. PSYCH: Normal mood, normal affect. SKIN: Warm, dry, normal turgor, no rashes or lesions noted CBCD WBC 5.8 K/mm3 (4.0-10.0) 12/26/18 05:30 RBC 3.64 M/mm3 (3.60-5.2) 12/26/18 05:30 Hgb 10.2 GM/dL (10.7-15.3) L 12/26/18 05:30 Hct 30.7 % (32.4-45.2) L 12/26/18 05:30 MCV 84.3 fl (80-96) 12/26/18 05:30 MCHC 33.1 g/dl (32.0-36.0) 12/26/18 05:30 RDW 14.4 % (11.6-15.6) 12/26/18 05:30 Plt Count 194 K/MM3 (134-434) 12/26/18 05:30 MPV 9.4 fl (7.5-11.1) 12/26/18 05:30 CMP Sodium 140 mmol/L (136-145) 12/24/18 06:40 Potassium 4.2 mmol/L (3.5-5.1) 12/24/18 06:40 Chloride 105 mmol/L (98-107) 12/24/18 06:40 Carbon Dioxide 29 mmol/L (21-32) 12/24/18 06:40 Anion Gap 6 MMOL/L (8-16) L 12/24/18 06:40 BUN 11 mg/dL (7-18) 12/24/18 06:40 Creatinine 0.7 mg/dL (0.55-1.3) 12/24/18 06:40 Creat Clearance w eGFR 82.25 (>60) 12/24/18 06:40 Random Glucose 112 mg/dL (74-106) H 12/24/18 06:40 Calcium 8.0 mg/dL (8.5-10.1) L 12/24/18 06:40 Total Bilirubin 0.7 mg/dL (0.2-1) 12/24/18 06:40 AST 15 U/L (15-37) 12/24/18 06:40 ALT 15 U/L (13-61) 12/24/18 06:40 Alkaline Phosphatase 62 U/L (45-117) 12/24/18 06:40 Total Protein 6.4 g/dl (6.4-8.2) 12/24/18 06:40 Albumin 3.1 g/dl (3.4-5.0) L 12/24/18 06:40 CARDIAC ENZYMES Troponin I < 0.02 ng/ml (0.00-0.05) 12/25/18 12:55 Current Medications Generic Name Dose Route Start Last Admin Trade Name Freq PRN Reason Stop Dose Admin Acetaminophen 650 mg 12/24/18 07:04 12/24/18 22:27 Tylenol - PO 650 mg Q6H PRN Administration Fever Or Pain Level 1 - 5 Apixaban 5 mg 12/24/18 10:00 12/26/18 13:21 Eliquis - PO 5 mg BID DEANNA Administration Atorvastatin Calcium 40 mg 12/25/18 12:21 12/25/18 22:22 Lipitor - PO 40 mg HS DEANNA Administration Docusate Sodium 100 mg 12/23/18 22:18 Colace - PO Q8H PRN CONSTIPATION Ergocalciferol 50,000 unit 12/25/18 10:00 Drisdol - PO Wren@1000 DEANNA Fluticasone Propionate 1 spray 12/23/18 22:30 Flonase - NS DAILY PRN NASAL ALLERGY Sodium Chloride 1,000 mls @ 75 mls/hr 12/23/18 22:30 12/25/18 22:22 Normal Saline - IV 75 mls/hr ASDIR DEANNA Administration Ceftriaxone Sodium 2 gm/ 100 mls @ 100 mls/hr 12/24/18 10:00 12/26/18 13:07 Dextrose IVPB 100 mls/hr DAILY DEANNA Administration Insulin Aspart 1 vial 12/24/18 07:00 12/26/18 13:01 Novolog Vial Sliding Scale - SQ Not Given ACHS DEANNA Protocol Metoprolol Succinate 75 mg 12/25/18 10:00 12/26/18 13:21 Toprol Xl - PO 75 mg DAILY DEANNA Administration Montelukast Sodium 10 mg 12/24/18 22:00 12/25/18 22:22 Singulair - PO 10 mg HS DEANNA Administration Home Medications Medication Instructions Recorded Apixaban [Eliquis] 5 mg PO BID 12/18/15 Metoprolol Succinate [Toprol XL -] 50 mg PO DAILY 12/18/15 Simvastatin 40 mg PO HS 01/23/16 Ergocalciferol (Vitamin D2) 50,000 units PO WEEKLY 07/29/18 [Vitamin D2] Valsartan/Hydrochlorothiazide 1 tab PO DAILY 07/29/18 [Valsartan-Hctz 80-12.5 mg Tab] Albuterol Sulfate Inhaler - 1 - 2 inh PO QID 12/23/18 [Ventolin Hfa Inhaler -] Dexlansoprazole [Dexilant] 60 mg PO DAILY 12/23/18 Docusate Sodium [Colace -] 100 mg PO TID PRN 12/23/18 Fluticasone Prop 0.05% Nasal 1 spray NS PRN 12/23/18 [Flonase -] Metformin HCl [Metformin HCl ER] 500 mg PO DAILY 12/23/18 Montelukast Sodium [Singulair] 10 mg PO DAILY 12/23/18 Nitroglycerin [Nitrostat] 0.4 mg SL ASDIR PRN 12/23/18 Microbiology 12/24/18 00:20 Urine - Urine Clean Catch Urine Culture - Final Escherichia Coli 12/23/18 17:18 Blood - Peripheral Venous Blood Culture - Preliminary NO GROWTH OBTAINED AFTER 48 HOURS, INCUBATION TO CONTINUE FOR 3 DAYS. 12/23/18 17:18 Blood - Peripheral Venous Blood Culture - Preliminary NO GROWTH OBTAINED AFTER 48 HOURS, INCUBATION TO CONTINUE FOR 3 DAYS. ECHO: reviewed mild asymmetric left ventricular hypertrophy, mild LVH , EJF 60- 65%, mild to moderate pulmonic valvular regurg. mild mitral reg. moderate aortic regurg. ASSESSMENT AND PLAN: Patient is a 73 year old female with past medical history of HTN, HLD, DM, ventricular arrhythmias, A.fib s/p PPM (on eliquis), anxiety, presented to the ED due to 1 month history of generalized body aches and chest pain. # Acute chest pain s/p stress test positive for ischemia ; small to moderate zone of inferolat. Trop. negative ; EKG showed T wave flattening on V4-V6 on repeat EKG. As per cardio recommendation to add koki-I. but bp is on lower side will monitor. #Atrial fibrillation rate controlled, continue Lopressor XL to 75mg s/p PPM on Eliquis 5mg BID. #s/p Sepsis due to UTI: positive for E.coli sensitive to Rocephin 2gm continue day #5 upon discharge will send her home on ceftin. #HTN: will continue home meds #HLD continue atorvastatin 40mg replaced by zocor #T2DM: Hold Metformin; will continue with Insulin sliding scale, BGM ACHS DVT Px: Eliquis 5mg BID
[2018-12-26] MEDS ORDERED: PT OWN MED DRAWER 7, Y5N ONE ×2 (17:45→21:32)
[2018-12-26] MEDS: MONTELUKAST NA 10 MG TABLET PO SCH (21:53)
[2018-12-26] MEDS: ATORVASTATIN CA 40 MG TABLET (FP) PO SCH (21:53)
[2018-12-26] MEDS: valACYclovir HCL 500 MG TABLET (FP) PO SCH (21:54)
[2018-12-27] MEDS: SODIUM CHLORIDE 1,000 ML IV SCH (01:07)
[2018-12-27] MEDS: INSULIN SLIDING SCALE (NOVOLOG) 1 VIAL SQ SCH ×4 (06:21→22:11)
[2018-12-27] MEDS ORDERED: PT OWN MED DRAWER 7, Y5N ONE (08:17)
[2018-12-27] MEDS ORDERED: DEXTROSE 5%-WATER 100 ML IVPB ONE (08:18)
[2018-12-27] MEDS: CEFTRIAXONE 2 GM in DEXTROSE 5%-WATER 100 ML IVPB SCH (09:03)
[2018-12-27] MEDS: APIXABAN 5 MG TABLET PO SCH ×2 (09:04→22:11)
[2018-12-27] MEDS: valACYclovir HCL 500 MG TABLET (FP) PO SCH ×2 (09:05→22:11)
[2018-12-27] MEDS: ACETAMINOPHEN 325 MG TABLET (FP) PO PRN (09:17)
--- NOTE | 2018-12-27 09:31 | PN ---
Physical Exam: SUBJECTIVE: Patient seen and examined this AM. Stress test reveals mild intensity ischemia in Inferolateral region. No new complaints. No acute overnight events. Denies chest pain, SOB. OBJECTIVE: Vital Signs Period Temp Pulse Resp BP Sys/Degroot Pulse Ox Last 24 Hr 98 F-98.8 F 70-78 18-20 120-133/72-84 95-95 GENERAL: A&Ox3, NAD HEAD: NCAT EYES: PERRL, EOMI ENT: moist mucous membranes. NECK: Supple. No JVD LUNGS: Diminished breath sounds at the bases, no wheezes, no crackles HEART: Irregular, S1, S2 without murmur ABDOMEN: Soft, Nontender, nondistended, + bowel sounds, no guarding EXTREMITIES: no edema. NEUROLOGICAL: Cranial nerves II through XII grossly intact. SKIN: Warm, dry, Small pustules surrounding the right lips Laboratory Results - last 24 hr 12/26/18 12/26/18 12/26/18 12:59 17:27 21:52 POC Glucometer 117 92 97 12/27/18 06:20 POC Glucometer 98 Microbiology 12/23/18 17:18 Blood - Peripheral Venous Blood Culture - Preliminary NO GROWTH OBTAINED AFTER 72 HOURS, INCUBATION TO CONTINUE FOR 2 DAYS. 12/23/18 17:18 Blood - Peripheral Venous Blood Culture - Preliminary NO GROWTH OBTAINED AFTER 72 HOURS, INCUBATION TO CONTINUE FOR 2 DAYS. 12/24/18 00:20 Urine - Urine Clean Catch Urine Culture - Final Escherichia Coli Active Medications Acetaminophen (Tylenol -) 650 mg PO Q6H PRN PRN Reason: Fever Or Pain Level 1 - 5 Last Admin: 12/27/18 09:17 Dose: 650 mg Apixaban (Eliquis -) 5 mg PO BID [facility] Last Admin: 12/27/18 09:04 Dose: 5 mg Atorvastatin Calcium (Lipitor -) 40 mg PO HS [facility] Last Admin: 12/26/18 21:53 Dose: 40 mg Docusate Sodium (Colace -) 100 mg PO Q8H PRN PRN Reason: CONSTIPATION Ergocalciferol (Drisdol -) 50,000 unit PO Wren@1000 DEANNA Fluticasone Propionate (Flonase -) 1 spray NS DAILY PRN PRN Reason: NASAL ALLERGY Sodium Chloride (Normal Saline -) 1,000 mls @ 75 mls/hr IV ASDIR [facility] Last Admin: 12/27/18 01:07 Dose: Not Given Ceftriaxone Sodium 2 gm/ (Dextrose) 100 mls @ 100 mls/hr IVPB DAILY [facility] Last Admin: 12/27/18 09:03 Dose: 100 mls/hr Insulin Aspart (Novolog Vial Sliding Scale -) 1 vial SQ ACHS [facility]; Protocol Last Admin: 12/27/18 06:21 Dose: Not Given Metoprolol Succinate (Toprol Xl -) 75 mg PO DAILY [facility] Last Admin: 12/27/18 09:05 Dose: 75 mg Montelukast Sodium (Singulair -) 10 mg PO HS [facility] Last Admin: 12/26/18 21:53 Dose: 10 mg Valacyclovir HCl (Valtrex -) 1,000 mg PO BID [facility] Last Admin: 12/27/18 09:05 Dose: 1,000 mg IMAGING: -CT A/P w/o contrast: In comparison to a prior exam of 12/06/2007 interval development of mild left perirenal soft tissue stranding is seen as well as associated mild thickening of the left anterior and posterior pararenal fascia - ? possible acute pyelonephritis versus representing the sequela of previous infection/inflammation. If clinically indicated additional evaluation utilizing contrast enhanced multiphase CT/CT urography may be performed. Development of a nonspecific 0.5 cm noncalcified right lower lobe subpleural nodule is noted posteriorly. Correlate with 3 month follow-up CT. The remainder of the exam demonstrates no obvious interval change as discussed above. -DUPLEX: No DVT is identified involving either leg. Please see above. -CXR: No significant interval change or acute cardiopulmonary disease is present. -Echo: LV Size function and thickness are normal. Mild Asymmetric LVH. LV Systolic function is normal. EF = 60-65%. Mild MR. Moderate TR and AR. Atrial septum is aneurysmal. ASSESSMENT/PLAN: 73 y/o F with PMHx HTN, HLD, DM, ventricular arrhythmias, A.fib s/p PPM (on eliquis), anxiety, presented with chest pain and was admitted for Sepsis. #Sepsis (Lactic acidosis, Leukocytosis) -Urine culture: Lactose fermenting neg bacilli -IV Ceftriaxone 2gm (ABx course started on 12/23) #Chest pain--R/O ACS -Stress test noted; Will discuss further plans with Cardiology and need for transfer -Tele monitoring #Atrial fibrillation, Rate controlled -Apixaban 5mg BID -Metoprolol succinate 75mg daily #HTN---Currently normotensive -Home antihypertensives held #HLD -Atorvastatin 40mg daily #DM -ISS BGMs ACHS #FEN -No standing fluids -Monitor lytes -Diabetic diet #PPx -Apixaban 5mg BID Visit type - Emergency Visit Emergency Visit: Yes ED Registration Date: 12/23/18 Care time: The patient presented to the Emergency Department on the above date and was hospitalized for further evaluation of their emergent condition. - New Patient This patient is new to me today: No - Critical Care Critical Care patient: No - Discharge Referral Referred to [facility] Med P.C.: No
--- NOTE | 2018-12-27 12:30 | PN ---
Progress Note, Physician Chief Complaint: Pt A&Ox3; asymptomatic. History of Present Illness: The patient is a 73 year old female, with a significant PMH of DM, HTN, HLD, ventricular arrhythmia, AF (on Eliquis), s/p PPM, allergic rhinitis, cholecystectomy, and hysterectomy, anxiety/panic/depression, who presents to the emergency department with one month of intermittent chest pain and generalized body weakness, worsening today. The patient describes her chest pain as pressure that radiates to her neck, back, arms and epigastrium. The patient endorses sweats, fevers and intermittent cough, secondary to her symptoms. The patient denies shortness of breath, headache or dizziness. The patient denies chills, diarrhea or constipation. The patient denies dysuria, frequency, urgency or hematuria. Allergies: Sulfa Past surgical history: L shoulder surgery, Cholecystectomy Social history: None reported PCP: Meryl Bunn - Current Medication List Current Medications: Active Medications Acetaminophen (Tylenol -) 650 mg PO Q6H PRN PRN Reason: Fever Or Pain Level 1 - 5 Last Admin: 12/27/18 09:17 Dose: 650 mg Apixaban (Eliquis -) 5 mg PO BID [facility] Last Admin: 12/27/18 09:04 Dose: 5 mg Atorvastatin Calcium (Lipitor -) 40 mg PO HS [facility] Last Admin: 12/26/18 21:53 Dose: 40 mg Docusate Sodium (Colace -) 100 mg PO Q8H PRN PRN Reason: CONSTIPATION Ergocalciferol (Drisdol -) 50,000 unit PO Wren@1000 [facility] Fluticasone Propionate (Flonase -) 1 spray NS DAILY PRN PRN Reason: NASAL ALLERGY Sodium Chloride (Normal Saline -) 1,000 mls @ 75 mls/hr IV ASDIR [facility] Last Admin: 12/27/18 01:07 Dose: Not Given Ceftriaxone Sodium 2 gm/ (Dextrose) 100 mls @ 100 mls/hr IVPB DAILY [facility] Last Admin: 12/27/18 09:03 Dose: 100 mls/hr Insulin Aspart (Novolog Vial Sliding Scale -) 1 vial SQ ACHS [facility]; Protocol Last Admin: 12/27/18 11:58 Dose: Not Given Metoprolol Succinate (Toprol Xl -) 75 mg PO DAILY [facility] Last Admin: 04/16/19 09:05 Dose: 75 mg Montelukast Sodium (Singulair -) 10 mg PO [facility] Last Admin: 12/26/18 21:53 Dose: 10 mg Valacyclovir HCl (Valtrex -) 1,000 mg PO BID [facility] Last Admin: 12/27/18 09:05 Dose: 1,000 mg - Objective Vital Signs: Vital Signs Temperature 98 F 12/27/18 08:55 Pulse Rate 70 12/27/18 08:55 Respiratory Rate 18 12/27/18 08:55 Blood Pressure 133/84 12/27/18 08:55 O2 Sat by Pulse Oximetry (%) 95 12/26/18 20:46 Constitutional: Yes: Calm Eyes: Yes: WNL HENT: Yes: WNL Cardiovascular: Yes: S1, S2 Respiratory: Yes: WNL Gastrointestinal: Yes: Soft ...Rectal Exam: Yes: Deferred Genitourinary: No: Anuria Breast(s): Yes: WNL Musculoskeletal: Yes: WNL Extremities: Yes: WNL Edema: No Peripheral Pulses WNL: Yes Integumentary: Yes: WNL Neurological: Yes: WNL ...Motor Strength: WNL Psychiatric: Yes: WNL Labs: CBC, BMP 12/26/18 05:30 12/24/18 06:40 INR, PTT INR 1.18 (0.83-1.09) H 12/23/18 17:55 - ....Imaging Chest X-ray: Image Reviewed EKG: Image Reviewed Other: Image Reviewed (stress MIBI: + ischemia) Problem List - Problems (1) Chest pain Assessment/Plan: stress Lexiscan MIBI 12/26/2018: + myocardial ischemia (mild-moderate area of mildly intense inferolateral wall). ECHO: normal LVEF. EKG: atrial paced rhythm. Pt will consider undergoing coronary angiogram. On metoprolol ER. Start lisinopril (HTN; DM; CAD). Statin. On apixaban for AF anticoagulation. ASA 81 mg daily. Code(s): R07.9 - CHEST PAIN, UNSPECIFIED (2) Epigastric abdominal pain Code(s): R10.13 - EPIGASTRIC PAIN (3) Afib Assessment/Plan: On metoprolol ER for HR control. On apixaban for anticoagulation. Code(s): I48.91 - UNSPECIFIED ATRIAL FIBRILLATION Qualifiers: Atrial fibrillation type: paroxysmal Qualified Code(s): I48.0 - Paroxysmal atrial fibrillation (4) HLD (hyperlipidemia) Code(s): E78.5 - HYPERLIPIDEMIA, UNSPECIFIED Qualifiers: Hyperlipidemia type: pure hypercholesterolemia Qualified Code(s): E78.00 - Pure hypercholesterolemia, unspecified; E78.0 - Pure hypercholesterolemia (5) HTN (hypertension) Assessment/Plan: On metoprolol ER. Start ACEI (HTN; DM). Code(s): I10 - ESSENTIAL (PRIMARY) HYPERTENSION Qualifiers: Hypertension type: essential hypertension Qualified Code(s): I10 - Essential (primary) hypertension
[2018-12-27] MEDS ORDERED: LISINOPRIL 5 MG TABLET (FP) PO ONE (14:00)
--- NOTE | 2018-12-27 18:34 | PN ---
Teaching Attending Note Name of Resident: Denise Heredia ATTENDING PHYSICIAN STATEMENT I saw and evaluated the patient. I reviewed the resident's note and discussed the case with the resident. I agree with the resident's findings and plan as documented. SUBJECTIVE: Patient is comfortable with no acute distress. OBJECTIVE: Vital Signs Temperature 98.2 F 12/27/18 14:00 Pulse Rate 69 12/27/18 14:00 Respiratory Rate 20 12/27/18 14:00 Blood Pressure 138/82 12/27/18 14:00 O2 Sat by Pulse Oximetry (%) 95 12/27/18 09:00 GENERAL: The patient is awake, alert, and fully oriented, in no acute distress. HEAD: Normal with no signs of trauma. EYES: PERRL, extraocular movements intact, sclera anicteric, conjunctiva clear. ENT: Ears normal, oropharynx clear without exudates, moist mucous membranes. NECK: Trachea midline, full range of motion, supple. LUNGS: Breath sounds equal, clear to auscultation bilaterally, no wheezes, no crackles, no accessory muscle use. HEART: Regular rate and rhythm, S1, S2 without murmur, rub or gallop. ABDOMEN: Soft, nontender, nondistended, normoactive bowel sounds, no guarding, no rebound, no hepatosplenomegaly, no masses appreciated. EXTREMITIES: 2+ pulses, warm, well-perfused, no edema. NEUROLOGICAL: Cranial nerves II through XII grossly intact. Normal speech, gait not observed. PSYCH: Normal mood, normal affect. SKIN: Warm, dry, normal turgor, no rashes or lesions noted CBCD WBC 5.8 K/mm3 (4.0-10.0) 12/26/18 05:30 RBC 3.64 M/mm3 (3.60-5.2) 12/26/18 05:30 Hgb 10.2 GM/dL (10.7-15.3) L 12/26/18 05:30 Hct 30.7 % (32.4-45.2) L 12/26/18 05:30 MCV 84.3 fl (80-96) 12/26/18 05:30 MCHC 33.1 g/dl (32.0-36.0) 12/26/18 05:30 RDW 14.4 % (11.6-15.6) 12/26/18 05:30 Plt Count 194 K/MM3 (134-434) 12/26/18 05:30 MPV 9.4 fl (7.5-11.1) 12/26/18 05:30 CMP Sodium 140 mmol/L (136-145) 12/24/18 06:40 Potassium 4.2 mmol/L (3.5-5.1) 12/24/18 06:40 Chloride 105 mmol/L (98-107) 12/24/18 06:40 Carbon Dioxide 29 mmol/L (21-32) 12/24/18 06:40 Anion Gap 6 MMOL/L (8-16) L 12/24/18 06:40 BUN 11 mg/dL (7-18) 12/24/18 06:40 Creatinine 0.7 mg/dL (0.55-1.3) 12/24/18 06:40 Creat Clearance w eGFR 82.25 (>60) 12/24/18 06:40 Random Glucose 112 mg/dL (74-106) H 12/24/18 06:40 Calcium 8.0 mg/dL (8.5-10.1) L 12/24/18 06:40 Total Bilirubin 0.7 mg/dL (0.2-1) 12/24/18 06:40 AST 15 U/L (15-37) 12/24/18 06:40 ALT 15 U/L (13-61) 12/24/18 06:40 Alkaline Phosphatase 62 U/L (45-117) 12/24/18 06:40 Total Protein 6.4 g/dl (6.4-8.2) 12/24/18 06:40 Albumin 3.1 g/dl (3.4-5.0) L 12/24/18 06:40 CARDIAC ENZYMES Troponin I < 0.02 ng/ml (0.00-0.05) 12/25/18 12:55 Current Medications Generic Name Dose Route Start Last Admin Trade Name Freq PRN Reason Stop Dose Admin Acetaminophen 650 mg 12/24/18 07:04 12/27/18 09:17 Tylenol - PO 650 mg Q6H PRN Administration Fever Or Pain Level 1 - 5 Apixaban 5 mg 12/24/18 10:00 12/27/18 09:04 Eliquis - PO 5 mg BID DEANNA Administration Atorvastatin Calcium 40 mg 12/25/18 12:21 12/26/18 21:53 Lipitor - PO 40 mg HS DEANNA Administration Docusate Sodium 100 mg 12/23/18 22:18 Colace - PO Q8H PRN CONSTIPATION Ergocalciferol 50,000 unit 12/25/18 10:00 Drisdol - PO Wren@1000 DEANNA Fluticasone Propionate 1 spray 12/23/18 22:30 Flonase - NS DAILY PRN NASAL ALLERGY Ceftriaxone Sodium 2 gm/ 100 mls @ 100 mls/hr 12/24/18 10:00 12/27/18 09:03 Dextrose IVPB 100 mls/hr DAILY DEANNA Administration Insulin Aspart 1 vial 12/24/18 07:00 12/27/18 16:48 Novolog Vial Sliding Scale - SQ Not Given ACHS [facility] Protocol Lisinopril 2.5 mg 12/28/18 10:[address] [facility] Metoprolol Succinate 75 mg 12/25/18 10:00 12/27/18 09:05 Toprol Xl - PO 75 mg DAILY DEANNA Administration Montelukast Sodium 10 mg 12/24/18 22:00 12/26/18 21:53 Singulair - PO 10 mg HS DEANNA Administration Valacyclovir HCl 1,000 mg 12/26/18 22:00 12/27/18 09:05 Valtrex - PO 1,000 mg BID DEANNA Administration Home Medications Medication Instructions Recorded Apixaban [Eliquis] 5 mg PO BID 12/18/15 Metoprolol Succinate [Toprol XL -] 50 mg PO DAILY 12/18/15 Simvastatin 40 mg PO HS 01/23/16 Ergocalciferol (Vitamin D2) 50,000 units PO WEEKLY 07/29/18 [Vitamin D2] Valsartan/Hydrochlorothiazide 1 tab PO DAILY 07/29/18 [Valsartan-Hctz 80-12.5 mg Tab] Albuterol Sulfate Inhaler - 1 - 2 inh PO QID 12/23/18 [Ventolin Hfa Inhaler -] Dexlansoprazole [Dexilant] 60 mg PO DAILY 12/23/18 Docusate Sodium [Colace -] 100 mg PO TID PRN 12/23/18 Fluticasone Prop 0.05% Nasal 1 spray NS PRN 12/23/18 [Flonase -] Metformin HCl [Metformin HCl ER] 500 mg PO DAILY 12/23/18 Montelukast Sodium [Singulair] 10 mg PO DAILY 12/23/18 Nitroglycerin [Nitrostat] 0.4 mg SL ASDIR PRN 12/23/18 Microbiology 12/23/18 17:18 Blood - Peripheral Venous Blood Culture - Preliminary NO GROWTH OBTAINED AFTER 96 HOURS, INCUBATION TO CONTINUE FOR 1 DAYS. 12/23/18 17:18 Blood - Peripheral Venous Blood Culture - Preliminary NO GROWTH OBTAINED AFTER 96 HOURS, INCUBATION TO CONTINUE FOR 1 DAYS. 12/24/18 00:20 Urine - Urine Clean Catch Urine Culture - Final Escherichia Coli ECHO: reviewed mild asymmetric left ventricular hypertrophy, mild LVH , EJF 60- 65%, mild to moderate pulmonic valvular regurg. mild mitral reg. moderate aortic regurg. ASSESSMENT AND PLAN: Patient is a 73 year old female with past medical history of HTN, HLD, DM, ventricular arrhythmias, A.fib s/p PPM (on eliquis), anxiety, presented to the ED due to 1 month history of generalized body aches and chest pain. # Acute chest pain s/p stress test positive for ischemia ; small to moderate zone of inferolat. Trop. negative ; EKG showed T wave flattening on V4-V6 on repeat EKG. Patient will be transferred to [facility]. in am , Dr. Rios is on board. added koki-I lisinopril 2.5mg added. #Atrial fibrillation rate controlled now continue Lopressor XL to 75mg s/p PPM on Eliquis 5mg BID. #s/p Sepsis due to UTI: positive for E.coli sensitive to Rocephin 2gm continue day #4 one more day of Rocephin and discontinue. # Herpes Labialis: on Valtrex 1000mg po bid #HTN: will continue home meds #HLD continue atorvastatin 40mg replaced by zocor #T2DM: Hold Metformin; will continue with Insulin sliding scale, BGM ACHS DVT Px: Eliquis 5mg BID Tx the patient to [facility]. for cath. in am
[2018-12-27] MEDS: MONTELUKAST NA 10 MG TABLET PO SCH (22:11)
[2018-12-27] MEDS: ATORVASTATIN CA 40 MG TABLET (FP) PO SCH (22:11)
[2018-12-28] MEDS: INSULIN SLIDING SCALE (NOVOLOG) 1 VIAL SQ SCH ×4 (06:20→22:00)
[2018-12-28] MEDS ORDERED: PT OWN MED DRAWER 7, Y5N ONE (08:45)
[2018-12-28] MEDS ORDERED: DEXTROSE 5%-WATER 100 ML IVPB ONE (08:46)
[2018-12-28] MEDS: LISINOPRIL 5 MG TABLET (FP) PO SCH (09:24)
[2018-12-28] MEDS: APIXABAN 5 MG TABLET PO SCH ×2 (09:25→22:01)
[2018-12-28] MEDS: CEFTRIAXONE 2 GM in DEXTROSE 5%-WATER 100 ML IVPB SCH (09:26)
[2018-12-28] MEDS: valACYclovir HCL 500 MG TABLET (FP) PO SCH ×2 (09:26→22:01)
--- NOTE | 2018-12-28 11:33 | PN ---
Physical Exam: SUBJECTIVE: Patient seen and examined this AM. No new complaints. No acute overnight events. Denies chest pain, SOB. For transfer pending cardiology. OBJECTIVE: Vital Signs Period Temp Pulse Resp BP Sys/Degroot Pulse Ox Last 24 Hr 97.9 F-98.2 F 69-70 16-20 113-138/67-82 96-96 GENERAL: A&Ox3, NAD HEAD: NCAT EYES: PERRL, EOMI ENT: moist mucous membranes. NECK: Supple. No JVD LUNGS: Diminished breath sounds at the bases, no wheezes, no crackles HEART: Irregular, S1, S2 without murmur ABDOMEN: Soft, Nontender, nondistended, + bowel sounds, no guarding EXTREMITIES: no edema. NEUROLOGICAL: Cranial nerves II through XII grossly intact. SKIN: Warm, dry, Small pustules surrounding the right lips Laboratory Results - last 24 hr 12/27/18 12/27/18 12/27/18 11:58 16:47 22:09 POC Glucometer 94 114 121 12/28/18 06:06 POC Glucometer 95 Microbiology 12/23/18 17:18 Blood - Peripheral Venous Blood Culture - Preliminary NO GROWTH OBTAINED AFTER 96 HOURS, INCUBATION TO CONTINUE FOR 1 DAYS. 12/23/18 17:18 Blood - Peripheral Venous Blood Culture - Preliminary NO GROWTH OBTAINED AFTER 96 HOURS, INCUBATION TO CONTINUE FOR 1 DAYS. 12/24/18 00:20 Urine - Urine Clean Catch Urine Culture - Final Escherichia Coli Active Medications Acetaminophen (Tylenol -) 650 mg PO Q6H PRN PRN Reason: Fever Or Pain Level 1 - 5 Last Admin: 12/27/18 09:17 Dose: 650 mg Apixaban (Eliquis -) 5 mg PO BID [facility] Last Admin: 12/28/18 09:25 Dose: 5 mg Atorvastatin Calcium (Lipitor -) 40 mg PO HS [facility] Last Admin: 12/27/18 22:11 Dose: 40 mg Docusate Sodium (Colace -) 100 mg PO Q8H PRN PRN Reason: CONSTIPATION Ergocalciferol (Drisdol -) 50,000 unit PO Wren@1000 DEANNA Fluticasone Propionate (Flonase -) 1 spray NS DAILY PRN PRN Reason: NASAL ALLERGY Ceftriaxone Sodium 2 gm/ (Dextrose) 100 mls @ 100 mls/hr IVPB DAILY [facility] Last Admin: 12/28/18 09:26 Dose: 100 mls/hr Insulin Aspart (Novolog Vial Sliding Scale -) 1 vial SQ ACHS [facility]; Protocol Last Admin: 12/28/18 06:20 Dose: Not Given Lisinopril (Prinivil) 2.5 mg PO DAILY [facility] Last Admin: 12/28/18 09:24 Dose: 2.5 mg Metoprolol Succinate (Toprol Xl -) 75 mg PO DAILY [facility] Last Admin: 12/28/18 09:25 Dose: 75 mg Montelukast Sodium (Singulair -) 10 mg PO HS [facility] Last Admin: 12/27/18 22:11 Dose: 10 mg Valacyclovir HCl (Valtrex -) 1,000 mg PO BID [facility] Last Admin: 12/28/18 09:26 Dose: 1,000 mg IMAGING: -CT A/P w/o contrast: In comparison to a prior exam of 12/06/2007 interval development of mild left perirenal soft tissue stranding is seen as well as associated mild thickening of the left anterior and posterior pararenal fascia - ? possible acute pyelonephritis versus representing the sequela of previous infection/inflammation. If clinically indicated additional evaluation utilizing contrast enhanced multiphase CT/CT urography may be performed. Development of a nonspecific 0.5 cm noncalcified right lower lobe subpleural nodule is noted posteriorly. Correlate with 3 month follow-up CT. The remainder of the exam demonstrates no obvious interval change as discussed above. -DUPLEX: No DVT is identified involving either leg. Please see above. -CXR: No significant interval change or acute cardiopulmonary disease is present. -Echo: LV Size function and thickness are normal. Mild Asymmetric LVH. LV Systolic function is normal. EF = 60-65%. Mild MR. Moderate TR and AR. Atrial septum is aneurysmal. ASSESSMENT/PLAN: 73 y/o F with PMHx HTN, HLD, DM, ventricular arrhythmias, A.fib s/p PPM (on eliquis), anxiety, presented with chest pain and was admitted for Sepsis. #Sepsis -Urine culture: Lactose fermenting neg bacilli -IV Ceftriaxone 2gm (ABx course started on 12/23) #Chest pain--R/O ACS -Stress test Positive--Pending transfer as per cardiology -Tele monitoring #Atrial fibrillation, Rate controlled -Apixaban 5mg BID -Metoprolol succinate 75mg daily #HTN---Currently normotensive -Home antihypertensives held #HLD -Atorvastatin 40mg daily #DM -ISS BGMs ACHS #FEN -No standing fluids -Monitor lytes -Diabetic diet #PPx -Apixaban 5mg BID Dispo: Pending transfer for cath Visit type - Emergency Visit Emergency Visit: Yes ED Registration Date: 12/23/18 Care time: The patient presented to the Emergency Department on the above date and was hospitalized for further evaluation of their emergent condition. - New Patient This patient is new to me today: No - Critical Care Critical Care patient: No - Discharge Referral Referred to [facility] Med P.C.: No
--- NOTE | 2018-12-28 11:42 | PN ---
Progress Note, Physician - Current Medication List Current Medications: Active Medications Acetaminophen (Tylenol -) 650 mg PO Q6H PRN PRN Reason: Fever Or Pain Level 1 - 5 Last Admin: 12/27/18 09:17 Dose: 650 mg Apixaban (Eliquis -) 5 mg PO BID [facility] Last Admin: 12/28/18 09:25 Dose: 5 mg Atorvastatin Calcium (Lipitor -) 40 mg PO [facility] Last Admin: 12/27/18 22:11 Dose: 40 mg Docusate Sodium (Colace -) 100 mg PO Q8H PRN PRN Reason: CONSTIPATION Ergocalciferol (Drisdol -) 50,000 unit PO Wren@1000 [facility] Fluticasone Propionate (Flonase -) 1 spray NS DAILY PRN PRN Reason: NASAL ALLERGY Ceftriaxone Sodium 2 gm/ (Dextrose) 100 mls @ 100 mls/hr IVPB DAILY [facility] Last Admin: 12/28/18 09:26 Dose: 100 mls/hr Insulin Aspart (Novolog Vial Sliding Scale -) 1 vial SQ ACHS [facility]; Protocol Last Admin: 12/28/18 06:20 Dose: Not Given Lisinopril (Prinivil) 2.5 mg PO DAILY [facility] Last Admin: 12/28/18 09:24 Dose: 2.5 mg Metoprolol Succinate (Toprol Xl -) 75 mg PO DAILY [facility] Last Admin: 12/28/18 09:25 Dose: 75 mg Montelukast Sodium (Singulair -) 10 mg PO [facility] Last Admin: 12/27/18 22:11 Dose: 10 mg Valacyclovir HCl (Valtrex -) 1,000 mg PO BID [facility] Last Admin: 12/28/18 09:26 Dose: 1,000 mg - Objective Vital Signs: Vital Signs Temperature 98.2 F 12/28/18 10:00 Pulse Rate 70 12/28/18 10:00 Respiratory Rate 20 12/28/18 10:00 Blood Pressure 115/67 12/28/18 10:00 O2 Sat by Pulse Oximetry (%) 96 12/28/18 09:00 Eyes: Yes: WNL, Conjunctiva Clear, EOM Intact HENT: Yes: WNL, Atraumatic, Normocephalic Neck: Yes: WNL, Supple, Trachea Midline Cardiovascular: Yes: WNL, Regular Rate and Rhythm Respiratory: Yes: WNL, Regular, CTA Bilaterally Gastrointestinal: Yes: WNL, Normal Bowel Sounds Genitourinary: Yes: WNL Musculoskeletal: Yes: WNL Extremities: Yes: WNL Edema: No Integumentary: Yes: WNL Neurological: Yes: WNL, Alert, Oriented ...Motor Strength: WNL Psychiatric: Yes: WNL Labs: CBC, BMP 12/26/18 05:30 12/24/18 06:40 INR, PTT INR 1.18 (0.83-1.09) H 12/23/18 17:55 Assessment/Plan - Problems (1) Chest pain Assessment/Plan: stress Lexiscan MIBI 12/26/2018: + myocardial ischemia (mild-moderate area of mildly intense inferolateral wall). ECHO: normal LVEF. EKG: atrial paced rhythm. Pt will consider undergoing coronary angiogram. On metoprolol ER. Start lisinopril (HTN; DM; CAD). Statin. On apixaban for AF anticoagulation. ASA 81 mg daily. Code(s): R07.9 - CHEST PAIN, UNSPECIFIED (2) Epigastric abdominal pain Code(s): R10.13 - EPIGASTRIC PAIN (3) Afib Assessment/Plan: On metoprolol ER for HR control. On apixaban for anticoagulation. Code(s): I48.91 - UNSPECIFIED ATRIAL FIBRILLATION Qualifiers: Atrial fibrillation type: paroxysmal Qualified Code(s): I48.0 - Paroxysmal atrial fibrillation (4) HLD (hyperlipidemia) Code(s): E78.5 - HYPERLIPIDEMIA, UNSPECIFIED Qualifiers: Hyperlipidemia type: pure hypercholesterolemia Qualified Code(s): E78.00 - Pure hypercholesterolemia, unspecified; E78.0 - Pure hypercholesterolemia (5) HTN (hypertension) Assessment/Plan: On metoprolol ER. Start ACEI (HTN; DM). Code(s): I10 - ESSENTIAL (PRIMARY) HYPERTENSION Qualifiers: Hypertension type: essential hypertension Qualified Code(s): I10 - Essential (primary) hypertension
--- NOTE | 2018-12-28 15:24 | PN ---
Teaching Attending Note Name of Resident: Denise Heredia ATTENDING PHYSICIAN STATEMENT I saw and evaluated the patient. I reviewed the resident's note and discussed the case with the resident. I agree with the resident's findings and plan as documented. SUBJECTIVE: Feeling well, no acute events overnight. Denies CP, SOB, palpitations. Anxious about transfer to [place]. OBJECTIVE: Vital Signs - 24 hr 12/27/18 12/27/18 12/27/18 18:00 20:05 20:49 Temperature 98.2 F 97.9 F Pulse Rate 69 70 Respiratory 16 20 Rate Blood Pressure 113/72 128/75 O2 Sat by Pulse 96 Oximetry (%) 12/28/18 12/28/18 12/28/18 02:00 06:00 09:00 Temperature 98 F 97.9 F Pulse Rate 70 70 Respiratory 20 20 20 Rate Blood Pressure 126/67 124/77 O2 Sat by Pulse 96 Oximetry (%) 12/28/18 10:00 Temperature 98.2 F Pulse Rate 70 Respiratory 20 Rate Blood Pressure 115/67 O2 Sat by Pulse Oximetry (%) PHYSICAL EXAM: GENERAL: NAD, sitting comfortably HEENT: nc/at, right sided and chin vesicular lesions NECK: supple CVS: s1s2, rrr, no m/r/g LUNGS: CTA b/l, no w/r/r, unlabored ABDOMEN: soft, nt/nd, obese, nabs EXTREMITIES: no c/c/e, 2+ DPP Laboratory Results - last 24 hr 12/27/18 12/27/18 12/28/18 16:47 22:09 06:06 POC Glucometer 114 121 95 12/28/18 11:55 POC Glucometer 108 Current Medications Generic Name Dose Route Start Last Admin Trade Name Freq PRN Reason Stop Dose Admin Acetaminophen 650 mg 12/24/18 07:04 12/27/18 09:17 Tylenol - PO 650 mg Q6H PRN Administration Fever Or Pain Level 1 - 5 Apixaban 5 mg 12/24/18 10:00 12/28/18 09:25 Eliquis - PO 5 mg BID DEANNA Administration Atorvastatin Calcium 40 mg 12/25/18 12:21 12/27/18 22:11 Lipitor - PO 40 mg HS DEANNA Administration Docusate Sodium 100 mg 12/23/18 22:18 Colace - PO Q8H PRN CONSTIPATION Ergocalciferol 50,000 unit 12/25/18 10:00 Drisdol - PO Wren@1000 [facility] Fluticasone Propionate 1 spray 12/23/18 22:30 Flonase - NS DAILY PRN NASAL ALLERGY Ceftriaxone Sodium 2 gm/ 100 mls @ 100 mls/hr 12/24/18 10:00 12/28/18 09:26 Dextrose IVPB 100 mls/hr DAILY DEANNA Administration Insulin Aspart 1 vial 12/24/18 07:00 12/28/18 13:19 Novolog Vial Sliding Scale - SQ Not Given ACHS [facility] Protocol Lisinopril 2.5 mg 12/28/18 10:00 12/28/18 09:24 Prinivil PO 2.5 mg DAILY DEANNA Administration Metoprolol Succinate 75 mg 12/25/18 10:00 12/28/18 09:25 Toprol Xl - PO 75 mg DAILY DEANNA Administration Montelukast Sodium 10 mg 12/24/18 22:00 12/27/18 22:11 Singulair - PO 10 mg HS DEANNA Administration Valacyclovir HCl 1,000 mg 12/26/18 22:00 12/28/18 09:26 Valtrex - PO 1,000 mg BID DEANNA Administration Microbiology 12/23/18 17:18 Blood - Peripheral Venous Blood Culture - Preliminary NO GROWTH OBTAINED AFTER 96 HOURS, INCUBATION TO CONTINUE FOR 1 DAYS. 12/23/18 17:18 Blood - Peripheral Venous Blood Culture - Preliminary NO GROWTH OBTAINED AFTER 96 HOURS, INCUBATION TO CONTINUE FOR 1 DAYS. 12/24/18 00:20 Urine - Urine Clean Catch Urine Culture - Final Escherichia Coli IMAGING: ECHO: reviewed mild asymmetric left ventricular hypertrophy, mild LVH , EJF 60- 65%, mild to moderate pulmonic valvular regurg. mild mitral reg. moderate aortic regurg. ASSESSMENT AND PLAN: 73 year old female PMHx HTN, DM2, HLD, Afib s/p PPM on eliquis, presents with myalgias and chest pain. 1) Chest pain, negative troponins with t wave changes, positive stress test- small to moderate zone inferolateral ischemia -patient will be transferred to [place] for cardiac catheterization, awaiting transfer -continue with bb/aceI/statin -not on antiplatelets? unclear why, dw cardio -Dr. Rios on board 2) Sepsis, urinary source, Ecoli UTI -today is day 5 rocephin -blood cx neg 96 hrs -dc abx 3) Afib-rate controlled, hx PPM -c/w bb -c/w eliquis 4) Herpes Labialis -on Valtrex 1000mg po bid 5) HTN-controlled -c/w current mngmt 6) HLD -c/w high intensity statin 7) DM2-blood sugars fairly controlled -metformin held for cath -c/w ISS for coverage -bs checks
[2018-12-28] MEDS: ATORVASTATIN CA 40 MG TABLET (FP) PO SCH (22:01)
[2018-12-28] MEDS: MONTELUKAST NA 10 MG TABLET PO SCH (22:01)
[2018-12-29] MEDS: INSULIN SLIDING SCALE (NOVOLOG) 1 VIAL SQ SCH ×4 (06:04→21:03)
[2018-12-29] MEDS: ASPIRIN 81 MG CHEWABLE TABLETS PO SCH (09:18)
[2018-12-29] MEDS: LISINOPRIL 5 MG TABLET (FP) PO SCH (09:18)
[2018-12-29] MEDS: APIXABAN 5 MG TABLET PO SCH (09:19)
[2018-12-29] MEDS: valACYclovir HCL 500 MG TABLET (FP) PO SCH ×2 (09:20→21:10)
[2018-12-29] MEDS ORDERED: RANITIDINE HCL 150 MG TABLET (FP) PO ONE (11:39)
--- NOTE | 2018-12-29 14:30 | PN ---
Teaching Attending Note Name of Resident: Denise Heredia ATTENDING PHYSICIAN STATEMENT I saw and evaluated the patient. I reviewed the resident's note and discussed the case with the resident. I agree with the resident's findings and plan as documented. SUBJECTIVE: Patient reports occasional epigastric/chest pain. OBJECTIVE: Vital Signs Period Temp Pulse Resp BP Sys/Degroot Pulse Ox Last 24 Hr 97.8 F-98.7 F 68-71 18-20 104-142/60-86 97-97 HEART: S1S2, RRR LUNGS: Clear ABDOMEN: Soft, non-tender, non-distended, normal BS EXTREMITIES: No edema Laboratory Results - last 24 hr 12/28/18 12/28/18 12/29/18 17:19 20:54 05:40 POC Glucometer 86 84 93 12/29/18 13:18 POC Glucometer 95 Current Medications Generic Name Dose Route Start Last Admin Trade Name Freq PRN Reason Stop Dose Admin Acetaminophen 650 mg 12/24/18 07:04 12/27/18 09:17 Tylenol - PO 650 mg Q6H PRN Administration Fever Or Pain Level 1 - 5 Aspirin 81 mg 12/29/18 10:00 12/29/18 09:18 Asa - PO 81 mg DAILY DEANNA Administration Atorvastatin Calcium 40 mg 12/25/18 12:21 12/28/18 22:01 Lipitor - PO 40 mg HS DEANNA Administration Docusate Sodium 100 mg 12/23/18 22:18 Colace - PO Q8H PRN CONSTIPATION Ergocalciferol 50,000 unit 12/25/18 10:00 Drisdol - PO Wren@1000 DEANNA Fluticasone Propionate 1 spray 12/23/18 22:30 Flonase - NS DAILY PRN NASAL ALLERGY Insulin Aspart 1 vial 12/24/18 07:00 12/29/18 06:04 Novolog Vial Sliding Scale - SQ Not Given ACHS DEANNA Protocol Lisinopril 2.5 mg 12/28/18 10:00 12/29/18 09:18 Prinivil PO 2.5 mg DAILY DEANNA Administration Metoprolol Succinate 75 mg 12/25/18 10:00 12/29/18 09:17 Toprol Xl - PO 75 mg DAILY DEANNA Administration Montelukast Sodium 10 mg 12/24/18 22:00 12/28/18 22:01 Singulair - PO 10 mg HS DEANNA Administration Valacyclovir HCl 1,000 mg 12/26/18 22:00 12/29/18 09:20 Valtrex - PO 1,000 mg BID DEANNA Administration ASSESSMENT AND PLAN: This is a 73 year old woman with a history of HTN, hyperlipidemia, type 2 DM, a fib, pacemaker, anxiety who presented to the ED with chest pain and body aches. 1. Chest pain - Troponin negative x3 - Stress test shows small to moderate inferolateral reversible defect - Continue aspirin, Toprol XL, Lipitor - Awaiting transfer to [facility] for cardiac cath 2. Sepsis secondary to E. coli UTI - Completed course of ceftriaxone 3. Atrial fibrillation - Has pacemaker - Continue Toprol XL - Eliquis held for cardiac cath 4. Herpes labialis - Continue Valtrex 5. HTN - Continue Toprol XL, lisinopril 6. Hyperlipidemia - Continue Lipitor 7. Type 2 DM - Continue Novolog sliding scale - Metformin held for cardiac cath 8. Anxiety
--- NOTE | 2018-12-29 16:14 | PN ---
Physical Exam: SUBJECTIVE: Patient seen and examined this AM. No new complaints. No acute overnight events. OBJECTIVE: Vital Signs Period Temp Pulse Resp BP Sys/Degroot Pulse Ox Last 24 Hr 97.8 F-98.7 F 70-71 18-20 104-142/60-81 97-97 GENERAL: A&Ox3, NAD HEAD: NCAT EYES: PERRL, EOMI ENT: moist mucous membranes. NECK: Supple. No JVD LUNGS: Diminished breath sounds at the bases, no wheezes, no crackles HEART: Irregular, S1, S2 without murmur ABDOMEN: Soft, Nontender, nondistended, + bowel sounds, no guarding EXTREMITIES: no edema. NEUROLOGICAL: Cranial nerves II through XII grossly intact. SKIN: Warm, dry, Small pustules surrounding the right lips Laboratory Results - last 24 hr 12/28/18 12/28/18 12/29/18 17:19 20:54 05:40 POC Glucometer 86 84 93 12/29/18 13:18 POC Glucometer 95 Microbiology 12/23/18 17:18 Blood - Peripheral Venous Blood Culture - Final NO GROWTH AFTER 5 DAYS INCUBATION 12/23/18 17:18 Blood - Peripheral Venous Blood Culture - Final NO GROWTH AFTER 5 DAYS INCUBATION 12/24/18 00:20 Urine - Urine Clean Catch Urine Culture - Final Escherichia Coli Active Medications Acetaminophen (Tylenol -) 650 mg PO Q6H PRN PRN Reason: Fever Or Pain Level 1 - 5 Last Admin: 12/27/18 09:17 Dose: 650 mg Aspirin (Asa -) 81 mg PO DAILY [facility] Last Admin: 12/29/18 09:18 Dose: 81 mg Atorvastatin Calcium (Lipitor -) 40 mg PO HS [facility] Last Admin: 12/28/18 22:01 Dose: 40 mg Docusate Sodium (Colace -) 100 mg PO Q8H PRN PRN Reason: CONSTIPATION Ergocalciferol (Drisdol -) 50,000 unit PO Wren@1000 [facility] Fluticasone Propionate (Flonase -) 1 spray NS DAILY PRN PRN Reason: NASAL ALLERGY Insulin Aspart (Novolog Vial Sliding Scale -) 1 vial SQ ACHS [facility]; Protocol Last Admin: 12/29/18 15:35 Dose: Not Given Lisinopril (Prinivil) 2.5 mg PO DAILY [facility] Last Admin: 12/29/18 09:18 Dose: 2.5 mg Metoprolol Succinate (Toprol Xl -) 75 mg PO DAILY [facility] Last Admin: 12/29/18 09:17 Dose: 75 mg Montelukast Sodium (Singulair -) 10 mg PO HS [facility] Last Admin: 12/28/18 22:01 Dose: 10 mg Valacyclovir HCl (Valtrex -) 1,000 mg PO BID [facility] Last Admin: 12/29/18 09:20 Dose: 1,000 mg IMAGING: -CT A/P w/o contrast: In comparison to a prior exam of 12/06/2007 interval development of mild left perirenal soft tissue stranding is seen as well as associated mild thickening of the left anterior and posterior pararenal fascia - ? possible acute pyelonephritis versus representing the sequela of previous infection/inflammation. If clinically indicated additional evaluation utilizing contrast enhanced multiphase CT/CT urography may be performed. Development of a nonspecific 0.5 cm noncalcified right lower lobe subpleural nodule is noted posteriorly. Correlate with 3 month follow-up CT. The remainder of the exam demonstrates no obvious interval change as discussed above. -DUPLEX: No DVT is identified involving either leg. Please see above. -CXR: No significant interval change or acute cardiopulmonary disease is present. -Echo: LV Size function and thickness are normal. Mild Asymmetric LVH. LV Systolic function is normal. EF = 60-65%. Mild MR. Moderate TR and AR. Atrial septum is aneurysmal. ASSESSMENT/PLAN: 73 y/o F with PMHx HTN, HLD, DM, ventricular arrhythmias, A.fib s/p PPM (on eliquis), anxiety, presented with chest pain and was admitted for Sepsis. #Sepsis -Urine culture: Lactose fermenting neg bacilli -Completed course of Ceftriaxone #Chest pain--R/O ACS -Stress test Positive--Pending transfer as per cardiology -Tele monitoring -Continue ASA #Atrial fibrillation, Rate controlled -Apixaban 5mg BID -Metoprolol succinate 75mg daily #HTN---Currently normotensive -Metoprolol succinate #HLD -Atorvastatin 40mg daily #DM -ISS BGMs ACHS #FEN -No standing fluids -Monitor lytes -Diabetic diet #PPx -Apixaban 5mg BID Dispo: Pending transfer for cath Visit type - Emergency Visit Emergency Visit: Yes ED Registration Date: 12/23/18 Care time: The patient presented to the Emergency Department on the above date and was hospitalized for further evaluation of their emergent condition. - New Patient This patient is new to me today: No - Critical Care Critical Care patient: No - Discharge Referral Referred to [facility] No
--- NOTE | 2018-12-29 17:55 | PN ---
Progress Note, Physician Chief Complaint: Pt A&Ox3; sitting up at bedside; asymptomatic. History of Present Illness: The patient is a 73 year old female, with a significant PMH of DM, HTN, HLD, ventricular arrhythmia, AF (on Eliquis), s/p PPM, allergic rhinitis, cholecystectomy, and hysterectomy, anxiety/panic/depression, who presents to the emergency department with one month of intermittent chest pain and generalized body weakness, worsening today. The patient describes her chest pain as pressure that radiates to her neck, back, arms and epigastrium. The patient endorses sweats, fevers and intermittent cough, secondary to her symptoms. The patient denies shortness of breath, headache or dizziness. The patient denies chills, diarrhea or constipation. The patient denies dysuria, frequency, urgency or hematuria. Allergies: Sulfa Past surgical history: L shoulder surgery, Cholecystectomy Social history: None reported PCP: Meryl Bunn - Current Medication List Current Medications: Active Medications Acetaminophen (Tylenol -) 650 mg PO Q6H PRN PRN Reason: Fever Or Pain Level 1 - 5 Last Admin: 12/27/18 09:17 Dose: 650 mg Aspirin (Asa -) 81 mg PO DAILY [facility] Last Admin: 12/29/18 09:18 Dose: 81 mg Atorvastatin Calcium (Lipitor -) 40 mg PO [facility] Last Admin: 12/28/18 22:01 Dose: 40 mg Docusate Sodium (Colace -) 100 mg PO Q8H PRN PRN Reason: CONSTIPATION Ergocalciferol (Drisdol -) 50,000 unit PO Wren@1000 [facility] Fluticasone Propionate (Flonase -) 1 spray NS DAILY PRN PRN Reason: NASAL ALLERGY Insulin Aspart (Novolog Vial Sliding Scale -) 1 vial SQ [facility]; Protocol Last Admin: 12/29/18 17:03 Dose: Not Given Lisinopril (Prinivil) 2.5 mg PO DAILY [facility] Last Admin: 12/29/18 09:18 Dose: 2.5 mg Metoprolol Succinate (Toprol Xl -) 75 mg PO DAILY [facility] Last Admin: 12/29/18 09:17 Dose: 75 mg Montelukast Sodium (Singulair -) 10 mg PO [facility] Last Admin: 12/28/18 22:01 Dose: 10 mg Valacyclovir HCl (Valtrex -) 1,000 mg PO BID [facility] Last Admin: 12/29/18 09:20 Dose: 1,000 mg - Objective Vital Signs: Vital Signs Temperature 98.2 F 12/29/18 17:00 Pulse Rate 70 12/29/18 17:00 Respiratory Rate 20 12/29/18 17:00 Blood Pressure 114/66 12/29/18 17:00 O2 Sat by Pulse Oximetry (%) 97 12/29/18 09:00 Constitutional: Yes: Calm Cardiovascular: Yes: WNL Respiratory: Yes: WNL Gastrointestinal: Yes: Soft ...Rectal Exam: Yes: Deferred Genitourinary: No: Anuria Breast(s): Yes: WNL Musculoskeletal: Yes: WNL Extremities: Yes: WNL Edema: No Peripheral Pulses WNL: Yes Integumentary: Yes: WNL Neurological: Yes: WNL ...Motor Strength: WNL Psychiatric: Yes: WNL Labs: CBC, BMP 12/26/18 05:30 12/24/18 06:40 INR, PTT INR 1.18 (0.83-1.09) H 12/23/18 17:55 - ....Imaging EKG: Image Reviewed (atrial paced rhythm) Problem List - Problems (1) Chest pain Assessment/Plan: stress Lexiscan MIBI 12/26/2018: (+) myocardial ischemia (mild-moderate area of mildly intense inferolateral wall perfusion reduction). ECHO: normal LVEF. EKG: atrial paced rhythm.. On metoprolol ER. Started lisinopril (HTN; DM; CAD). Statin. On apixaban for AF anticoagulation. ASA 81 mg daily. Pt agrees for transfer to [facility] for coronary angiogram. Code(s): R07.9 - CHEST PAIN, UNSPECIFIED (2) Epigastric abdominal pain Code(s): R10.13 - EPIGASTRIC PAIN (3) Afib Assessment/Plan: On metoprolol ER for HR control. On apixaban for anticoagulation. Code(s): I48.91 - UNSPECIFIED ATRIAL FIBRILLATION Qualifiers: Atrial fibrillation type: paroxysmal Qualified Code(s): I48.0 - Paroxysmal atrial fibrillation (4) HLD (hyperlipidemia) Assessment/Plan: Continue atorvastatin 40 mg daily (LDL 66 mg/dL 07/2018; pt is also a diabetic). Code(s): E78.5 - HYPERLIPIDEMIA, UNSPECIFIED Qualifiers: Hyperlipidemia type: pure hypercholesterolemia Qualified Code(s): E78.00 - Pure hypercholesterolemia, unspecified; E78.0 - Pure hypercholesterolemia (5) HTN (hypertension) Assessment/Plan: On metoprolol ER. Start ACEI (HTN; DM). Code(s): I10 - ESSENTIAL (PRIMARY) HYPERTENSION Qualifiers: Hypertension type: essential hypertension Qualified Code(s): I10 - Essential (primary) hypertension
[2018-12-29] MEDS: MONTELUKAST NA 10 MG TABLET PO SCH (21:10)
[2018-12-29] MEDS: ATORVASTATIN CA 40 MG TABLET (FP) PO SCH (21:10)
[2018-12-30] MEDS: INSULIN SLIDING SCALE (NOVOLOG) 1 VIAL SQ SCH ×4 (07:35→22:13)
[2018-12-30] MEDS ORDERED: PT OWN MED DRAWER 7, Y5N ONE (10:12)
[2018-12-30] MEDS: ASPIRIN 81 MG CHEWABLE TABLETS PO SCH (10:13)
[2018-12-30] MEDS: LISINOPRIL 5 MG TABLET (FP) PO SCH (10:14)
[2018-12-30] MEDS: valACYclovir HCL 500 MG TABLET (FP) PO SCH ×2 (10:19→22:14)
[2018-12-30 11:47] VITALS: BMI 29.4
[2018-12-30] MEDS: RANITIDINE HCL 150 MG TABLET (FP) PO SCH ×2 (12:18→22:14)
--- NOTE | 2018-12-30 16:14 | PN ---
Teaching Attending Note Name of Resident: Denise Heredia ATTENDING PHYSICIAN STATEMENT I saw and evaluated the patient. I reviewed the resident's note and discussed the case with the resident. I agree with the resident's findings and plan as documented. SUBJECTIVE: Patient has no complaints. OBJECTIVE: Vital Signs Period Temp Pulse Resp BP Sys/Degroot Pulse Ox Last 24 Hr 97.7 F-98.7 F 69-71 18-20 110-128/59-83 99-99 HEART: S1S2, RRR LUNGS: Clear ABDOMEN: Soft, non-tender, non-distended, normal BS EXTREMITIES: No edema Laboratory Results - last 24 hr 12/29/18 12/29/18 12/30/18 16:52 20:46 06:51 POC Glucometer 118 104 92 12/30/18 11:25 POC Glucometer 103 Current Medications Generic Name Dose Route Start Last Admin Trade Name Freq PRN Reason Stop Dose Admin Acetaminophen 650 mg 12/24/18 07:04 12/27/18 09:17 Tylenol - PO 650 mg Q6H PRN Administration Fever Or Pain Level 1 - 5 Aspirin 81 mg 12/29/18 10:00 12/30/18 10:13 Asa - PO 81 mg DAILY [facility] Administration Atorvastatin Calcium 40 mg 12/25/18 12:21 12/29/18 21:10 Lipitor - PO 40 mg HS [facility] Administration Docusate Sodium 100 mg 12/23/18 22:18 Colace - PO Q8H PRN CONSTIPATION Ergocalciferol 50,000 unit 12/25/18 10:00 Drisdol - PO Wren@1000 [facility] Fluticasone Propionate 1 spray 12/23/18 22:30 Flonase - NS DAILY PRN NASAL ALLERGY Insulin Aspart 1 vial 12/24/18 07:00 12/30/18 11:26 Novolog Vial Sliding Scale - SQ Not Given ACHS [facility] Protocol Lisinopril 2.5 mg 12/28/18 10:00 12/30/18 10:14 Prinivil PO 2.5 mg DAILY [facility] Administration Metoprolol Succinate 75 mg 12/25/18 10:00 12/30/18 10:19 Toprol Xl - PO 75 mg DAILY [facility] Administration Montelukast Sodium 10 mg 12/24/18 22:00 12/29/18 21:10 Singulair - PO 10 mg HS [facility] Administration Ranitidine HCl 150 mg 12/30/18 12:00 12/30/18 12:18 Zantac - PO 150 mg BID [facility] Administration Valacyclovir HCl 1,000 mg 12/26/18 22:00 12/30/18 10:19 Valtrex - PO 1,000 mg BID [facility] Administration ASSESSMENT AND PLAN: This is a 73 year old woman with a history of HTN, hyperlipidemia, type 2 DM, a fib, pacemaker, anxiety who presented to the ED with chest pain and body aches. 1. Chest pain - Troponin negative x3 - Stress test shows small to moderate inferolateral reversible defect - Continue aspirin, Toprol XL, Lipitor - Awaiting transfer to [facility] for cardiac cath 2. Sepsis secondary to E. coli UTI - Completed course of ceftriaxone 3. Atrial fibrillation - Has pacemaker - Continue Toprol XL - Eliquis held for cardiac cath 4. Herpes labialis - Continue Valtrex 5. HTN - Continue Toprol XL, lisinopril 6. Hyperlipidemia - Continue Lipitor 7. Type 2 DM - Continue Novolog sliding scale - Metformin held for cardiac cath 8. Anxiety
--- NOTE | 2018-12-30 16:34 | PN ---
Physical Exam: SUBJECTIVE: Patient seen and examined this AM. No new complaints. No acute overnight events. Pending transfer for Cath. OBJECTIVE: Vital Signs Period Temp Pulse Resp BP Sys/Degroot Pulse Ox Last 24 Hr 97.7 F-98.7 F 69-71 18-20 110-128/59-83 99-99 GENERAL: A&Ox3, NAD HEAD: NCAT EYES: PERRL, EOMI ENT: moist mucous membranes. NECK: Supple. No JVD LUNGS: Diminished breath sounds at the bases, no wheezes, no crackles HEART: Irregular, S1, S2 without murmur ABDOMEN: Soft, Nontender, nondistended, + bowel sounds, no guarding EXTREMITIES: no edema. NEUROLOGICAL: Cranial nerves II through XII grossly intact. SKIN: Warm, dry, Small pustules surrounding the right lips improving Laboratory Results - last 24 hr 12/29/18 12/29/18 12/30/18 16:52 20:46 06:51 POC Glucometer 118 104 92 12/30/18 11:25 POC Glucometer 103 Microbiology 12/23/18 17:18 Blood - Peripheral Venous Blood Culture - Final NO GROWTH AFTER 5 DAYS INCUBATION 12/23/18 17:18 Blood - Peripheral Venous Blood Culture - Final NO GROWTH AFTER 5 DAYS INCUBATION 12/24/18 00:20 Urine - Urine Clean Catch Urine Culture - Final Escherichia Coli Active Medications Acetaminophen (Tylenol -) 650 mg PO Q6H PRN PRN Reason: Fever Or Pain Level 1 - 5 Last Admin: 12/27/18 09:17 Dose: 650 mg Aspirin (Asa -) 81 mg PO DAILY [facility] Last Admin: 12/30/18 10:13 Dose: 81 mg Atorvastatin Calcium (Lipitor -) 40 mg PO HS [facility] Last Admin: 12/29/18 21:10 Dose: 40 mg Docusate Sodium (Colace -) 100 mg PO Q8H PRN PRN Reason: CONSTIPATION Ergocalciferol (Drisdol -) 50,000 unit PO Wren@1000 [facility] Fluticasone Propionate (Flonase -) 1 spray NS DAILY PRN PRN Reason: NASAL ALLERGY Insulin Aspart (Novolog Vial Sliding Scale -) 1 vial SQ ACHS [facility]; Protocol Last Admin: 12/30/18 11:26 Dose: Not Given Lisinopril (Prinivil) 2.5 mg PO DAILY [facility] Last Admin: 12/30/18 10:14 Dose: 2.5 mg Metoprolol Succinate (Toprol Xl -) 75 mg PO DAILY [facility] Last Admin: 12/30/18 10:19 Dose: 75 mg Montelukast Sodium (Singulair -) 10 mg PO HS [facility] Last Admin: 12/29/18 21:10 Dose: 10 mg Ranitidine HCl (Zantac -) 150 mg PO BID [facility] Last Admin: 12/30/18 12:18 Dose: 150 mg Valacyclovir HCl (Valtrex -) 1,000 mg PO BID [facility] Last Admin: 12/30/18 10:19 Dose: 1,000 mg IMAGING: -CT A/P w/o contrast: In comparison to a prior exam of 12/06/2007 interval development of mild left perirenal soft tissue stranding is seen as well as associated mild thickening of the left anterior and posterior pararenal fascia - ? possible acute pyelonephritis versus representing the sequela of previous infection/inflammation. If clinically indicated additional evaluation utilizing contrast enhanced multiphase CT/CT urography may be performed. Development of a nonspecific 0.5 cm noncalcified right lower lobe subpleural nodule is noted posteriorly. Correlate with 3 month follow-up CT. The remainder of the exam demonstrates no obvious interval change as discussed above. -DUPLEX: No DVT is identified involving either leg. Please see above. -CXR: No significant interval change or acute cardiopulmonary disease is present. -Echo: LV Size function and thickness are normal. Mild Asymmetric LVH. LV Systolic function is normal. EF = 60-65%. Mild MR. Moderate TR and AR. Atrial septum is aneurysmal. ASSESSMENT/PLAN: 73 y/o F with PMHx HTN, HLD, DM, ventricular arrhythmias, A.fib s/p PPM (on eliquis), anxiety, presented with chest pain and was admitted for Sepsis. #Sepsis--Due to Escherichia Coli UTI -Completed course of Ceftriaxone #Chest pain--R/O ACS -Stress test Positive--Pending transfer as per cardiology -Tele monitoring -Continue ASA #Atrial fibrillation, Rate controlled -Hold Apixaban in the setting of upcoming Cath as per cardio rec's -Metoprolol succinate 75mg daily #HTN---Currently normotensive -Metoprolol succinate #HLD -Atorvastatin 40mg daily #DM -ISS BGMs ACHS #FEN -No standing fluids -Monitor lytes -Diabetic diet #PPx -SCDs--Hold DOAC Dispo: Pending transfer for cath Visit type - Emergency Visit Emergency Visit: Yes ED Registration Date: 12/23/18 Care time: The patient presented to the Emergency Department on the above date and was hospitalized for further evaluation of their emergent condition. - New Patient This patient is new to me today: No - Critical Care Critical Care patient: No - Discharge Referral Referred to [facility] No
--- NOTE | 2018-12-30 20:29 | PN ---
Progress Note (short form) - Note Progress Note: On-call resident paged to initiate transfer to [facility] for cardiac catheterization. Case discussed with Dr. Kassie Denis who states the patient will be transferred to [facility] on Wednesday. Accepting physician will be Dr. Demetris Sr. Discussed transfer with patient, and nursing staff.
[2018-12-30] MEDS: MONTELUKAST NA 10 MG TABLET PO SCH (22:14)
[2018-12-30] MEDS: ATORVASTATIN CA 40 MG TABLET (FP) PO SCH (22:14)
--- NOTE | 2018-12-31 01:45 | PN ---
Progress Note, Physician Chief Complaint: Pt A&Ox3; sitting up at bedside; anxious; c/o occasional chest and back discomfort. History of Present Illness: The patient is a 73 year old female, with a significant PMH of DM, HTN, HLD, ventricular arrhythmia, AF (on Eliquis), s/p PPM, allergic rhinitis, cholecystectomy, and hysterectomy, anxiety/panic/depression, who presents to the emergency department with one month of intermittent chest pain and generalized body weakness, worsening today. The patient describes her chest pain as pressure that radiates to her neck, back, arms and epigastrium. The patient endorses sweats, fevers and intermittent cough, secondary to her symptoms. The patient denies shortness of breath, headache or dizziness. The patient denies chills, diarrhea or constipation. The patient denies dysuria, frequency, urgency or hematuria. Allergies: Sulfa Past surgical history: L shoulder surgery, Cholecystectomy Social history: None reported PCP: Meryl Bunn - Current Medication List Current Medications: Active Medications Acetaminophen (Tylenol -) 650 mg PO Q6H PRN PRN Reason: Fever Or Pain Level 1 - 5 Last Admin: 12/27/18 09:17 Dose: 650 mg Aspirin (Asa -) 81 mg PO DAILY [facility] Last Admin: 12/30/18 10:13 Dose: 81 mg Atorvastatin Calcium (Lipitor -) 40 mg PO [facility] Last Admin: 12/30/18 22:14 Dose: 40 mg Docusate Sodium (Colace -) 100 mg PO Q8H PRN PRN Reason: CONSTIPATION Ergocalciferol (Drisdol -) 50,000 unit PO Wren@1000 [facility] Fluticasone Propionate (Flonase -) 1 spray NS DAILY PRN PRN Reason: NASAL ALLERGY Insulin Aspart (Novolog Vial Sliding Scale -) 1 vial SQ [facility]; Protocol Last Admin: 12/30/18 22:13 Dose: Not Given Lisinopril (Prinivil) 2.5 mg PO DAILY [facility] Last Admin: 12/30/18 10:14 Dose: 2.5 mg Metoprolol Succinate (Toprol Xl -) 75 mg PO DAILY [facility] Last Admin: 12/30/18 10:19 Dose: 75 mg Montelukast Sodium (Singulair -) 10 mg PO [facility] Last Admin: 12/30/18 22:14 Dose: 10 mg Ranitidine HCl (Zantac -) 150 mg PO BID [facility] Last Admin: 12/30/18 22:14 Dose: 150 mg Valacyclovir HCl (Valtrex -) 1,000 mg PO BID [facility] Last Admin: 12/30/18 22:14 Dose: 1,000 mg - Objective Vital Signs: Vital Signs Temperature 98.6 F 12/30/18 18:00 Pulse Rate 72 12/30/18 18:00 Respiratory Rate 18 12/30/18 18:00 Blood Pressure 114/58 L 12/30/18 18:00 O2 Sat by Pulse Oximetry (%) 99 12/30/18 09:00 Constitutional: Yes: Anxious Eyes: Yes: WNL HENT: Yes: WNL, Pharyngeal Erythema Cardiovascular: Yes: Murmur (diastolic 2/4 , RSB-->base), S1, S2 Respiratory: Yes: WNL Gastrointestinal: Yes: Soft ...Rectal Exam: Yes: Deferred Genitourinary: Yes: Anuria Breast(s): Yes: WNL Musculoskeletal: Yes: Muscle Pain Extremities: Yes: WNL Edema: No Peripheral Pulses WNL: Yes Integumentary: Yes: WNL Neurological: Yes: WNL ...Motor Strength: WNL Psychiatric: Yes: WNL Labs: CBC, BMP 12/26/18 05:30 12/24/18 06:40 INR, PTT INR 1.18 (0.83-1.09) H 12/23/18 17:55 - ....Imaging Other: Image Reviewed (telemetry: atrial paced rhythm) Problem List - Problems (1) Chest pain Assessment/Plan: stress Lexiscan MIBI 12/26/2018: (+) myocardial ischemia (mild-moderate area of mildly intense inferolateral wall perfusion reduction). Continued occasional episodes of brief chest discomfort. ECHO: normal LVEF. EKG: atrial paced rhythm.. On metoprolol ER. Started lisinopril (HTN; DM; CAD). On Statin. On apixaban for AF anticoagulation. ASA 81 mg daily. Pt awaits transfer to [facility] for coronary angiogram (held yesterday due to having taken apixaban the night before). Addendum: [facility] is not presently accepting pt until insurance issue is cleared. Pt's insurance plan networks with [facility]. Discussed this with pt and her son; they have agreed for her to be transferred to [facility] for coronary angiogram. If pt is not transferred today, anticoagulation for atrial fibrillation will need to be restarted (either IV heparin or Lovenox; or PO apixaban (the latter if pt has the procedure at a later date). Code(s): R07.9 - CHEST PAIN, UNSPECIFIED (2) Epigastric abdominal pain Code(s): R10.13 - EPIGASTRIC PAIN (3) Afib Assessment/Plan: On metoprolol ER for HR control. On apixaban for anticoagulation; this has been held in anticipation of coronary angiogram. (Restart systemic anticoagulation with either IV heparin, Lovenox, or apixaban if angiogram is delayed). Code(s): I48.91 - UNSPECIFIED ATRIAL FIBRILLATION Qualifiers: Atrial fibrillation type: paroxysmal Qualified Code(s): I48.0 - Paroxysmal atrial fibrillation (4) HLD (hyperlipidemia) Assessment/Plan: Continue atorvastatin 40 mg daily (LDL 66 mg/dL 07/2018; pt is also a diabetic). Code(s): E78.5 - HYPERLIPIDEMIA, UNSPECIFIED Qualifiers: Hyperlipidemia type: pure hypercholesterolemia Qualified Code(s): E78.00 - Pure hypercholesterolemia, unspecified; E78.0 - Pure hypercholesterolemia (5) HTN (hypertension) Assessment/Plan: On metoprolol ER. Now also on lisinopril (HTN; DM). Code(s): I10 - ESSENTIAL (PRIMARY) HYPERTENSION Qualifiers: Hypertension type: essential hypertension Qualified Code(s): I10 - Essential (primary) hypertension (6) Moderate aortic regurgitation Assessment/Plan: ECHO: normal LVEF and LV size; moderate AR. Code(s): I35.1 - NONRHEUMATIC AORTIC (VALVE) INSUFFICIENCY (7) Pacemaker Code(s): Z95.0 - PRESENCE OF CARDIAC PACEMAKER
[2018-12-31] MEDS: INSULIN SLIDING SCALE (NOVOLOG) 1 VIAL SQ SCH ×4 (06:31→22:15)
--- NOTE | 2018-12-31 06:47 | PN ---
Progress Note (short form) - Note Progress Note: Coverage for Dr. Annalise Prince Chief Complaint: Events noted, notes reviewed, denies any chest pain or dyspnea , did not sleep well last night History of Present Illness: Seen and examined on telemetry. Events noted, notes reviewed, denies any chest pain or dyspnea, did not sleep well last night Awaiting transfer to [facility] for LHC/coronary angiography Current Medications: Current Medications Acetaminophen (Tylenol -) 650 mg PO Q6H PRN PRN Reason: Fever Or Pain Level 1 - 5 Last Admin: 12/27/18 09:17 Dose: 650 mg Apixaban (Eliquis -) 5 mg PO BID [facility] Aspirin (Asa -) 81 mg PO DAILY [facility] Last Admin: 12/30/18 10:13 Dose: 81 mg Atorvastatin Calcium (Lipitor -) 40 mg PO HS [facility] Last Admin: 12/30/18 22:14 Dose: 40 mg Docusate Sodium (Colace -) 100 mg PO Q8H PRN PRN Reason: CONSTIPATION Ergocalciferol (Drisdol -) 50,000 unit PO Wren@1000 [facility] Fluticasone Propionate (Flonase -) 1 spray NS DAILY PRN PRN Reason: NASAL ALLERGY Insulin Aspart (Novolog Vial Sliding Scale -) 1 vial SQ ACHS [facility]; Protocol Last Admin: 12/31/18 06:31 Dose: Not Given Lisinopril (Prinivil) 2.5 mg PO DAILY [facility] Last Admin: 12/30/18 10:14 Dose: 2.5 mg Metoprolol Succinate (Toprol Xl -) 75 mg PO DAILY [facility] Last Admin: 12/30/18 10:19 Dose: 75 mg Montelukast Sodium (Singulair -) 10 mg PO [facility] Last Admin: 12/30/18 22:14 Dose: 10 mg Ranitidine HCl (Zantac -) 150 mg PO BID [facility] Last Admin: 12/30/18 22:14 Dose: 150 mg Valacyclovir HCl (Valtrex -) 1,000 mg PO BID [facility] Last Admin: 12/30/18 22:14 Dose: 1,000 mg Review of Systems Cardiovascular: As noted above Respiratory: denies: Cough or Sputum Production Gastrointestinal: denies: Nausea, Vomiting, Diarrhea, Constipation or Abdominal Discomfort Musculoskeletal: No Symptoms Reported Endocrine: No Symptoms Reported - Objective Vital Signs: Last Vital Signs Temp Pulse Resp BP Pulse Ox 97.7 F 70 18 109/58 L 98 12/31/18 02:00 12/31/18 02:00 12/31/18 02:00 12/31/18 02:00 12/30/18 21:00 Intake & Output 12/28/18 12/29/18 12/30/18 12/31/18 23:59 23:59 23:59 23:59 Intake Total 675 1670 150 Balance 675 1670 150 Weight 161 lb Neck: Supple Negative JVD No bruit Respiratory: Diminished breath sounds at the bases Cardiovascular: S1, S2 Regular Rate Rhythm Gastrointestinal: Soft Benign Normal Bowel Sounds Ext: Negative Edema Labs: CBC, BMP 12/26/18 05:30 12/24/18 06:40 Hepatic Panel Total Bilirubin 0.7 mg/dL (0.2-1) 12/24/18 06:40 AST 15 U/L (15-37) 12/24/18 06:40 ALT 15 U/L (13-61) 12/24/18 06:40 Alkaline Phosphatase 62 U/L (45-117) 12/24/18 06:40 Albumin 3.1 g/dl (3.4-5.0) L 12/24/18 06:40 INR, PTT INR 1.18 (0.83-1.09) H 12/23/18 17:55 Assessment/Plan ASSESSMENT: 1. CAD/chest pain syndrome abnormal MPI study angina pectoris for LHC/coronary angiography as outlined above 2. Diastolic LV dysfunction with clinical 0 NYHA classification LV failure 3. HTN 4. DM 5. HLD, Hyperlipidemia 6. Paroxysmal atrial fibrillation currently in sinus rhythm/atrial pacing [id number] score of 4-5 on DOAC's/Eliquis 7. Sick sinus syndrome post PPM 8. History of ventricular arrhythmia 9. Anemia PLAN: 1. Continue Lopressor 2. Continue Lisinopril 3. Continue ASA with caution 4. Continue Eliquis but withholds for 24 hours prior to planned procedure/LHC/ coronary angiography 5. Continue Lipitor 6. Await transfer to [facility] for the above noted procedure Demetrius Castano MD
[2018-12-31 09:00] LABS: ANION GAP 3 MMOL/L (8-16); BLOOD UREA NITROGEN 12 mg/dL (7-18); CALCIUM 9.1 mg/dL (8.5-10.1); CHLORIDE 107 mmol/L (98-107); CO2 31 mmol/L (21-32); CREATININE 0.6 mg/dL (0.55-1.3); GLUCOSE,RANDOM 102 mg/dL (74-106); POTASSIUM 4.4 mmol/L (3.5-5.1); SODIUM 141 mmol/L (136-145)
[2018-12-31] MEDS ORDERED: APIXABAN 5 MG TABLET PO SCH (10:00)
[2018-12-31] MEDS: LISINOPRIL 5 MG TABLET (FP) PO SCH (10:05)
[2018-12-31] MEDS: RANITIDINE HCL 150 MG TABLET (FP) PO SCH ×2 (10:07→22:15)
[2018-12-31] MEDS: ASPIRIN 81 MG CHEWABLE TABLETS PO SCH (10:07)
[2018-12-31] MEDS: valACYclovir HCL 500 MG TABLET (FP) PO SCH ×2 (10:08→22:15)
[2018-12-31] MEDS: ENOXAPARIN NA (PORCINE) 80 MG/0.8 ML DISP.SYRIN SQ SCH ×2 (10:16→22:14)
--- NOTE | 2018-12-31 12:08 | PN ---
Physical Exam: SUBJECTIVE: Patient seen and examined. No acute events overnight. Patient with no new complaints. OBJECTIVE: Vital Signs Period Temp Pulse Resp BP Sys/Degroot Pulse Ox Last 24 Hr 97.7 F-98.6 F 67-81 18-18 99-125/58-76 97-98 GENERAL: A&Ox3, NAD HEAD: NCAT EYES: PERRL, EOMI ENT: moist mucous membranes. NECK: Supple. No JVD LUNGS: Diminished breath sounds at the bases, no wheezes, no crackles HEART: Irregular, S1, S2 without murmur ABDOMEN: Soft, Nontender, nondistended, + bowel sounds, no guarding EXTREMITIES: no edema. NEUROLOGICAL: Cranial nerves II through XII grossly intact. SKIN: Warm, dry, Small pustules surrounding the right lips improving Laboratory Results - last 24 hr 12/30/18 12/30/18 12/31/18 17:43 22:12 06:22 Sodium Potassium Chloride Carbon Dioxide Anion Gap BUN Creatinine Creat Clearance w eGFR POC Glucometer 98 103 93 Random Glucose Calcium 12/31/18 08:10 Sodium 141 Potassium 4.4 Chloride 107 Carbon Dioxide 31 Anion Gap 3 L BUN 12 Creatinine 0.6 Creat Clearance w eGFR 98.27 POC Glucometer Random Glucose 102 Calcium 9.1 Active Medications Generic Name Dose Route Start Last Admin Trade Name Freq PRN Reason Stop Dose Admin Acetaminophen 650 mg 12/24/18 07:04 12/27/18 09:17 Tylenol - PO 650 mg Q6H PRN Administration Fever Or Pain Level 1 - 5 Aspirin 81 mg 12/29/18 10:00 12/31/18 10:07 Asa - PO 81 mg DAILY DEANNA Administration Atorvastatin Calcium 40 mg 12/25/18 12:21 12/30/18 22:14 Lipitor - PO 40 mg HS DEANNA Administration Docusate Sodium 100 mg 12/23/18 22:18 Colace - PO Q8H PRN CONSTIPATION Enoxaparin Sodium 75 mg 12/31/18 10:00 12/31/18 10:16 Lovenox - SQ 75 mg BID DEANNA Administration Ergocalciferol 50,000 unit 12/25/18 10:00 Drisdol - PO Wren@1000 DEANNA Fluticasone Propionate 1 spray 12/23/18 22:30 Flonase - NS DAILY PRN NASAL ALLERGY Insulin Aspart 1 vial 12/24/18 07:00 12/31/18 06:31 Novolog Vial Sliding Scale - SQ Not Given ACHS [facility] Protocol Lisinopril 2.5 mg 12/28/18 10:00 12/31/18 10:05 Prinivil PO 2.5 mg DAILY DEANNA Administration Metoprolol Succinate 75 mg 12/25/18 10:00 12/31/18 10:09 Toprol Xl - PO 75 mg DAILY DEANNA Administration Montelukast Sodium 10 mg 12/24/18 22:00 12/30/18 22:14 Singulair - PO 10 mg HS DEANNA Administration Ranitidine HCl 150 mg 12/30/18 12:00 12/31/18 10:07 Zantac - PO 150 mg BID DEANNA Administration Valacyclovir HCl 1,000 mg 12/26/18 22:00 12/31/18 10:08 Valtrex - PO 1,000 mg BID DEANNA Administration ASSESSMENT/PLAN: 73 y/o F with PMHx HTN, HLD, DM, ventricular arrhythmias, A.fib s/p PPM (on eliquis), anxiety, presented with chest pain and was admitted for Sepsis. #Sepsis-resolved -2/2 Escherichia Coli UTI -resolved -Completed course of Ceftriaxone #Chest pain -Stress test Positive--Pending transfer as per cardiology -Tele monitoring -Continue ASA #Atrial fibrillation, Rate controlled -Hold Apixaban in the setting of upcoming Cath as per cardio rec's -start Lovenox 75mg BID -Metoprolol succinate 75mg daily #HTN -Metoprolol succinate #HLD -Atorvastatin 40mg daily #DM -ISS BGMs ACHS #FEN -No standing fluids -Monitor lytes -Diabetic diet #dvt ppx -lovenox Dispo: will be transferred tomorrow to [facility] for likely Cath on Wednesday Visit type - Emergency Visit Emergency Visit: Yes ED Registration Date: 12/23/18 Care time: The patient presented to the Emergency Department on the above date and was hospitalized for further evaluation of their emergent condition. - New Patient This patient is new to me today: Yes Date on this admission: 12/31/18 - Critical Care Critical Care patient: No
--- NOTE | 2018-12-31 14:19 | PN ---
Teaching Attending Note Name of Resident: Lissa Hdz ATTENDING PHYSICIAN STATEMENT I saw and evaluated the patient. I reviewed the resident's note and discussed the case with the resident. I agree with the resident's findings and plan as documented. SUBJECTIVE: Interviewed with the help of Dr. Hdz for translation no fever or chills. No CP. OBJECTIVE: NAD CV: RRR lungs: CTAB Ext : no edema or erythema ASSESSMENT AND PLAN: 73 y/o lady with h/o A fib on elliquis, HTN, HLP, PPM , and anxiety who presented with CP and was found to have + stress test for inferiolateral ischemia 1- CP with positive stress test: CP free now - cont ASA - cont BB and statin - accepted for Tx to [facility] tomorrpow, for cath on Wednesday - d/w Dr. Ambrose : use lovenox pending cath instead of eliquis 2- s/p sepsis 2/2 pyelonephritis: finished her Abx 3- h/o A fib. tele reviewed. episodes of A fiba nd A flutter - cont BB and lovenox now . eliquis on hold 4- Herpis Labialis: valtrex Dispo: transfer to [facility] tomorrow for cath on Wednesday
[2018-12-31 14:24] VITALS: PULSE 70
[2018-12-31] MEDS: MONTELUKAST NA 10 MG TABLET PO SCH (22:15)
[2018-12-31] MEDS: ATORVASTATIN CA 40 MG TABLET (FP) PO SCH (22:15)
[2019-01-01] MEDS: INSULIN SLIDING SCALE (NOVOLOG) 1 VIAL SQ SCH ×2 (07:07→11:50)
--- NOTE | 2019-01-01 07:45 | PN ---
Progress Note (short form) - Note Progress Note: Coverage for Dr. Annalise Prince Chief Complaint: Events noted, notes reviewed, denies any chest pain or dyspnea , again did not sleep well last night due to noisy roommate History of Present Illness: Seen and examined on telemetry. Events noted, notes reviewed, denies any chest pain or dyspnea, again did not sleep well last night due to noisy roommate Awaiting transfer to [facility] for LHC/coronary angiography Current Medications: Current Medications Acetaminophen (Tylenol -) 650 mg PO Q6H PRN PRN Reason: Fever Or Pain Level 1 - 5 Last Admin: 12/27/18 09:17 Dose: 650 mg Aspirin (Asa -) 81 mg PO DAILY [facility] Last Admin: 12/31/18 10:07 Dose: 81 mg Atorvastatin Calcium (Lipitor -) 40 mg PO HS [facility] Last Admin: 12/31/18 22:15 Dose: 40 mg Docusate Sodium (Colace -) 100 mg PO Q8H PRN PRN Reason: CONSTIPATION Enoxaparin Sodium (Lovenox -) 75 mg SQ BID [facility] Last Admin: 12/31/18 22:14 Dose: 75 mg Ergocalciferol (Drisdol -) 50,000 unit PO Wren@1000 [facility] Fluticasone Propionate (Flonase -) 1 spray NS DAILY PRN PRN Reason: NASAL ALLERGY Insulin Aspart (Novolog Vial Sliding Scale -) 1 vial SQ [facility]; Protocol Last Admin: 01/01/19 07:07 Dose: Not Given Lisinopril (Prinivil) 2.5 mg PO DAILY [facility] Last Admin: 12/31/18 10:05 Dose: 2.5 mg Metoprolol Succinate (Toprol Xl -) 75 mg PO DAILY [facility] Last Admin: 12/31/18 10:09 Dose: 75 mg Montelukast Sodium (Singulair -) 10 mg PO HS [facility] Last Admin: 12/31/18 22:15 Dose: 10 mg Ranitidine HCl (Zantac -) 150 mg PO BID [facility] Last Admin: 12/31/18 22:15 Dose: 150 mg Valacyclovir HCl (Valtrex -) 1,000 mg PO BID [facility] Last Admin: 12/31/18 22:15 Dose: 1,000 mg Review of Systems Cardiovascular: As noted above Respiratory: denies: Cough or Sputum Production Gastrointestinal: denies: Nausea, Vomiting, Diarrhea, Constipation or Abdominal Discomfort Musculoskeletal: No Symptoms Reported Endocrine: No Symptoms Reported - Objective Vital Signs: Last Vital Signs Temp Pulse Resp BP Pulse Ox 98.1 F 70 20 103/58 L 97 01/01/19 02:00 01/01/19 06:00 01/01/19 06:00 01/01/19 06:00 12/31/18 20:23 Intake & Output 12/29/18 12/30/18 12/31/18 01/01/19 23:59 23:59 23:59 23:59 Intake Total 1670 150 910 Balance 1670 150 910 Weight 161 lb Neck: Supple Negative JVD No bruit Respiratory: Diminished breath sounds at the bases Cardiovascular: S1, S2 Regular Rate Rhythm Gastrointestinal: Soft Benign Normal Bowel Sounds Ext: Negative Edema Labs: CBC, BMP 12/26/18 05:30 12/31/18 08:10 Hepatic Panel Total Bilirubin 0.7 mg/dL (0.2-1) 12/24/18 06:40 AST 15 U/L (15-37) 12/24/18 06:40 ALT 15 U/L (13-61) 12/24/18 06:40 Alkaline Phosphatase 62 U/L (45-117) 12/24/18 06:40 Albumin 3.1 g/dl (3.4-5.0) L 12/24/18 06:40 INR, PTT INR 1.18 (0.83-1.09) H 12/23/18 17:55 Assessment/Plan ASSESSMENT: 1. CAD/chest pain syndrome abnormal MPI study angina pectoris for LHC/coronary angiography as outlined above 2. Diastolic LV dysfunction with clinical 0 NYHA classification LV failure 3. HTN 4. DM 5. HLD, Hyperlipidemia 6. Paroxysmal atrial fibrillation currently in sinus rhythm/atrial pacing [id number] score of 4-5 on DOAC's/Eliquis- therapy withheld on Lovenox/bridge 7. Sick sinus syndrome post PPM 8. History of ventricular arrhythmia 9. Anemia PLAN: 1. Continue Lopressor 2. Continue Lisinopril 3. Continue ASA with caution 4. Continue to withhold Eliquis and continue Lovenox/bridge prior to planned procedure/LHC/coronary angiography 5. Continue Lipitor 6. Await transfer to [facility] for the above noted procedure Demetrius Castano MD
[2019-01-01] MEDS: ENOXAPARIN NA (PORCINE) 80 MG/0.8 ML DISP.SYRIN SQ SCH (09:15)
[2019-01-01] MEDS: LISINOPRIL 5 MG TABLET (FP) PO SCH (09:18)
[2019-01-01] MEDS: RANITIDINE HCL 150 MG TABLET (FP) PO SCH (09:19)
[2019-01-01] MEDS: ASPIRIN 81 MG CHEWABLE TABLETS PO SCH (09:20)
[2019-01-01] MEDS ORDERED: PT OWN MED DRAWER 7, Y5N ONE (09:23)
[2019-01-01] MEDS: valACYclovir HCL 500 MG TABLET (FP) PO SCH (09:24)
[2019-01-01 11:49] VITALS: BP 115/70; TEMP 98.4
--- NOTE | 2019-01-02 09:04 | DS ---
Physical Exam: SUBJECTIVE: I was informed that this patient was discharged over the weekend, thus a subjective was not preformed. OBJECTIVE: Vital Signs Period Temp Pulse Resp BP Sys/Degroot Pulse Ox Last 24 Hr 98.4 F 70 20 115/70 PHYSICAL EXAM I was informed that this patient was discharged over the weekend, thus a physical exam was not preformed. LABS Laboratory Results - last 24 hr 01/01/19 11:39 POC Glucometer 101 Microbiology 12/23/18 17:18 Blood - Peripheral Venous Blood Culture - Final NO GROWTH AFTER 5 DAYS INCUBATION 12/23/18 17:18 Blood - Peripheral Venous Blood Culture - Final NO GROWTH AFTER 5 DAYS INCUBATION 12/24/18 00:20 Urine - Urine Clean Catch Urine Culture - Final Escherichia Coli IMAGING: -CT A/P w/o contrast: In comparison to a prior exam of 12/06/2007 interval development of mild left perirenal soft tissue stranding is seen as well as associated mild thickening of the left anterior and posterior pararenal fascia - ? possible acute pyelonephritis versus representing the sequela of previous infection/inflammation. If clinically indicated additional evaluation utilizing contrast enhanced multiphase CT/CT urography may be performed. Development of a nonspecific 0.5 cm noncalcified right lower lobe subpleural nodule is noted posteriorly. Correlate with 3 month follow-up CT. The remainder of the exam demonstrates no obvious interval change as discussed above. -DUPLEX: No DVT is identified involving either leg. Please see above. -CXR: No significant interval change or acute cardiopulmonary disease is present. -Echo: LV Size function and thickness are normal. Mild Asymmetric LVH. LV Systolic function is normal. EF = 60-65%. Mild MR. Moderate TR and AR. Atrial septum is aneurysmal. -Maribel Scan: EXERCISE RESULTS: Overall negative pharmacologic nuclear stress, Appropriate blood pressure response, Patient remained asymptomatic, No significant electrocardiographic changes were seen. NUCLEAR RESULTS: Small to moderate zone of inferolateral reversible defect compatible with mild intensity ischemia. Normal left ventricular contraction with LV ejection fraction of 69%. HOSPITAL COURSE: Date of Admission:12/23/18 Date of Discharge: 01/02/19 73 y/o F with PMHx HTN, HLD, DM, ventricular arrhythmias, A.fib s/p PPM (on eliquis), anxiety, presented with chest pain and was admitted for Sepsis. Imaging and Microbiology noted above. Patient urine culture was positive for E. Coli for which she completed a course of IV Ceftriaxone. Cardiology was consulted and suggested patient have a stress test which was positive (noted above). It was recommended that patient be transferred for Cardiac Catheterization and patient was agreeable. Additionally her home dose Beta radha was increased and her BP was at goal. Patient home dose DOAC was held in anticipation of catheterization and she [facility]. Minutes to complete discharge: 36 Discharge Summary Reason For Visit: CHEST PAIN/LACTID ACIDOSIS Condition: Stable - Instructions Diet, Activity, Other Instructions: You were admitted to the hospital because you had chest pain. A stress test was done and it was positive. You are being transferred to [facility] for cardiac catheterization. You were also found to have a urinary tract infection which was treated with antibiotics. Medication Changes: 1. Stop using simvastatin; Start using Atorvastatin 40mg every night 2. Your Toprol XL Dose was increased to 75mg daily Follow up with the following physicians: 1. PCP in one week 2. Cardiology--Dr. Ellison one week after cardiac cath 3. A Right lower lobe subpleural nodule was noted on Catscan. You will need to have a repeat Catscan done in 3 months--Please follow-up with your Primary doctor to further manage this Continue all your other medications as prescribed Please return to the ER if you have any signs or symptoms of chest pain, shortness of breath, uncontrollable fever, chills, nausea, vomiting, numbness, tingling, or weakness in any part of your body, changes in vision, slurred speech, changes in speech/gait, or dizziness. Please return to the ER if symptoms persist, worsen, or new symptoms arise. Referrals: Cam Ellison MD [Staff Physician] - Disposition: TRANSFER ACUTE CARE/OTHER HOSP - Home Medications Comprehensive Discharge Medication List: Ambulatory Orders Apixaban [Eliquis] 5 mg PO BID 12/18/15 Metoprolol Succinate [Toprol XL -] 50 mg PO DAILY 12/18/15 Simvastatin 40 mg PO HS 01/23/16 Ergocalciferol (Vitamin D2) [Vitamin D2] 50,000 units PO WEEKLY 07/29/18 Valsartan/Hydrochlorothiazide [Valsartan-Hctz 80-12.5 mg Tab] 1 tab PO DAILY Albuterol Sulfate Inhaler - [Ventolin Hfa Inhaler -] 1 - 2 inh PO QID 12/23/18 Dexlansoprazole [Dexilant] 60 mg PO DAILY 12/23/18 Docusate Sodium [Colace -] 100 mg PO TID PRN 12/23/18 Fluticasone Prop 0.05% Nasal [Flonase -] 1 spray NS PRN 12/23/18 Metformin HCl [Metformin HCl ER] 500 mg PO DAILY 12/23/18 Montelukast Sodium [Singulair] 10 mg PO DAILY 12/23/18 Nitroglycerin [Nitrostat] 0.4 mg SL ASDIR PRN 12/23/18 This patient is new to me today: No Emergency Visit: Yes ED Registration Date: 12/23/18 Care time: The patient presented to the Emergency Department on the above date and was hospitalized for further evaluation of their emergent condition. Critical Care patient: No - Discharge Referral Referred to [facility] Med P.C.: No
== END 2019-01-01 12:00 | disposition short-term general hospital (02) | DRG 872 ==
LOC: JER 17:00 → JERBED 19:07 → J4W 12-24 01:35
PROVIDERS: ADMIT Internal Medicine; ATTEND Internal Medicine
DX: A41.9 Sepsis, unspecified organism (principal); E87.2 Acidosis; N39.0 Urinary tract infection, site not specified; I10 Essential (primary) hypertension; E78.5 Hyperlipidemia, unspecified; E11.9 Type 2 diabetes mellitus without complications; Z79.01 Long term (current) use of anticoagulants; I95.9 Hypotension, unspecified; Z95.0 Presence of cardiac pacemaker; F41.9 Anxiety disorder, unspecified; I48.0 Paroxysmal atrial fibrillation; B00.1 Herpesviral vesicular dermatitis; B96.20 Unspecified Escherichia coli [E. coli] as the cause of diseases classified elsewhere; F32.9 Major depressive disorder, single episode, unspecified; F41.0 Panic disorder [episodic paroxysmal anxiety]; R07.9 Chest pain, unspecified; I35.1 Nonrheumatic aortic (valve) insufficiency; I25.10 Atherosclerotic heart disease of native coronary artery without angina pectoris; D64.9 Anemia, unspecified; R91.1 Solitary pulmonary nodule; Z79.84 Long term (current) use of oral hypoglycemic drugs
CPT/HCPCS: 36415; 71045-TC-FY; 74176-TC; 78452-TC; 80048; 80053; 81003; 82803; 82962; 83036; 83605; 83735; 84100; 84484; 85025; 85610; 85730; 87040; 87086; 87186; 87804; 93005; 93010; 93017; 93306-TC; 93970-TC; 99285-25; A9502; J0131; J2785; J7030

== ENCOUNTER 2019-03-19 00:13 | Inpatient (IN) | payer OTHER ==
--- NOTE | 2019-03-19 00:46 | PDOC ---
History of Present Illness - General Stated Complaint: ABD PAIN Time Seen by Provider: 03/19/19 00:29 History Source: Patient Exam Limitations: No Limitations - History of Present Illness Initial Comments: 03/19/19 00:46 73 yo female pmh HTN, HLD, DM, ventricular arrhythmias, A.fib s/p PPM (on eliquis), anxiety, hysterectomy 2008 (for fibroids) and recent admission for urosepsis (E. Coli positive) and positive cardiac stress test requiring Cardiac Catheterization (Mark) presents to the ED for 3 days of RUQ pain. Pain started suddenly while resting at home, made worse with eating and drinking, admits to radiation of pain and nausea but no vomiting. Past History - Past Medical History Allergies/Adverse Reactions: Allergies Allergy/AdvReac Type Severity Reaction Status Date / Time Sulfa (Sulfonamide Allergy Verified 12/23/18 17:56 Antibiotics) Home Medications: Ambulatory Orders Apixaban [Eliquis] 5 mg PO BID 12/18/15 Metoprolol Succinate [Toprol XL -] 50 mg PO DAILY 12/18/15 Simvastatin 40 mg PO HS 01/23/16 Ergocalciferol (Vitamin D2) [Vitamin D2] 50,000 units PO WEEKLY 07/29/18 Valsartan/Hydrochlorothiazide [Valsartan-Hctz 80-12.5 mg Tab] 1 tab PO DAILY Albuterol Sulfate Inhaler - [Ventolin Hfa Inhaler -] 1 - 2 inh PO QID 12/23/18 Dexlansoprazole [Dexilant] 60 mg PO DAILY 12/23/18 Docusate Sodium [Colace -] 100 mg PO TID PRN 12/23/18 Fluticasone Prop 0.05% Nasal [Flonase -] 1 spray NS PRN 12/23/18 Metformin HCl [Metformin HCl ER] 500 mg PO DAILY 12/23/18 Montelukast Sodium [Singulair] 10 mg PO DAILY 12/23/18 Nitroglycerin [Nitrostat] 0.4 mg SL ASDIR PRN 12/23/18 Anemia: No Cardiac Disorders: Yes (afib) COPD: No Diabetes: Yes GI Disorders: Yes (GERD) Disorders: Yes HTN: Yes Hypercholesterolemia: Yes - Surgical History Cholecystectomy: Yes Orthopedic Surgery: Yes (SHOULDER SX Left) - Immunization History Immunization Up to Date: Yes - Suicide/Smoking/Psychosocial Hx Smoking History: Never smoked Have you smoked in the past 12 months: No Hx Alcohol Use: No Drug/Substance Use Hx: No Substance Use Type: None Hx Substance Use Treatment: No Review of Systems - Review of Systems Constitutional: No: Chills, Fever Respiratory: No: Shortness of Breath Cardiac (ROS): No: Chest Pain, Edema ABD/GI: Yes: Abdominal cramping, Other (ab pain after eating). No: Abdominal Distended, Constipated, Diarrhea, Nausea, Vomiting : No: Burning, Dysuria, Frequency, Flank Pain Musculoskeletal: No: Back Pain Integumentary: No: Change in Color Neurological: No: Headache, Numbness, Tingling, Ataxia *Physical Exam - Physical Exam General Appearance: Yes: Nourished, Appropriately Dressed, Mild Distress (duee to pain) HEENT: positive: EOMI Neck: positive: Supple. negative: Carotid bruit Respiratory/Chest: positive: Lungs Clear, Normal Breath Sounds. negative: Accessory Muscle Use, Rapid RR, Crackles, Rales, Rhonchi, Wheezing Cardiovascular: positive: Regular Rhythm, Regular Rate, S1, S2. negative: Edema , JVD, Murmur Vascular Pulses: Dorsalis-Pedis (R): 3+, Doralis-Pedis (L): 3+ Gastrointestinal/Abdominal: positive: Flat, Soft, Tenderness (diffuse but more concentrated RUQ). negative: Pulsatile Mass, Protuberent, Distended, Guarding Musculoskeletal: negative: CVA Tenderness Extremity: positive: Normal Capillary Refill, Normal Inspection, Normal Range of Motion Integumentary: positive: Normal Color, Dry, Warm Neurologic: positive: Fully Oriented, Alert, Normal Mood/Affect ED Treatment Course - LABORATORY CBC & Chemistry Diagram: 03/19/19 02:20 03/19/19 01:53 - RADIOLOGY Radiology Studies Ordered: Category Date Time Status CHEST X-RAY PORTABLE* [RAD] Stat Radiology 03/19/19 00:43 Ordered ABDOMEN US -LIMITED [US] Stat Ultrasound 03/19/19 00:43 Ordered Medical Decision Making - Medical Decision Making 03/19/19 06:51 73 yo female pmh HTN, HLD, DM, ventricular arrhythmias, A.fib s/p PPM (on eliquis), anxiety, hysterectomy 2008 (for fibroids) and recent admission for urosepsis (E. Coli positive) and positive cardiac stress test requiring Cardiac Catheterization (Mark) presents to the ED for 3 days of RUQ pain. Pain started suddenly while resting at home, made worse with eating and drinking, admits to radiation of pain and nausea but no vomiting. fluids and pain control ordered DDX INLT: colitis, PUD, pancreatitis, ischemic bowel Vitals wnl CT shows possible ischemic bowel vs colitis vs crohns Pt has hx of a fib, pain after eating with distribution of affected colon concerning for ischemic bowel Will cover with empiric antibiotics and more fluids given Lactic acid 1.[address] Crook, states due to normal lactic acid, very unlikely to be ischemic bowel. Will assess pt in the AM Discussed case with hospitalist, pt accepted for admission to med surg *DC/Admit/Observation/Transfer Diagnosis at time of Disposition: Colitis - Discharge Dispostion Condition at time of disposition: Stable Decision to Admit order: Yes - Referrals - Patient Instructions - Post Discharge Activity
[2019-03-19] MEDS ORDERED: SODIUM CHLORIDE 500 ML IV STA (00:49)
[2019-03-19] MEDS ORDERED: ACETAMINOPHEN 1000 MG/100 ML VIAL (NON FORMULARY) IVPB ONE (00:49)
[2019-03-19] MEDS ORDERED: ONDANSETRON 4 MG/2 ML VIAL IVPUSH ONE (00:49)
[2019-03-19 00:58] VITALS: BMI 26.9
[2019-03-19] MEDS ORDERED: ACETAMINOPHEN INJECTION 100 ML IVPB ONE (01:03)
[2019-03-19] MEDS ORDERED: ONDANSETRON 4 MG/2 ML VIAL ONE (01:03)
[2019-03-19 02:30] LABS: BASO % 0.7 % (0-2.0); EOS % 2.4 % (0-4.5); HEMATOCRIT 34.2 % (32.4-45.2); HEMOGLOBIN 10.9 GM/dL (10.7-15.3); LYMPH % 21.9 % (8-40); MCH 27.2 pg (25.7-33.7); MCHC 31.9 g/dl (32.0-36.0); MEAN CELL VOLUME 85.3 fl (80-96); MONO % 12.8 % (3.8-10.2); NEUT % 62.2 % (42.8-82.8); PLATELET COUNT 214 K/MM3 (134-434); RBC 4.01 M/mm3 (3.60-5.2); RDW 14.4 % (11.6-15.6); WHITE BLOOD COUNT 8.5 K/mm3 (4.0-10.0)
[2019-03-19 02:38] LABS: INR 1.02 (0.83-1.09)
[2019-03-19 02:40] LABS: ACTIVATED PTT 25.1 SECONDS (25.2-36.5)
[2019-03-19 02:47] LABS: ALBUMIN 3.7 g/dl (3.4-5.0); ALK PHOS 72 U/L (45-117); ANION GAP 7 MMOL/L (8-16); BILIRUBIN,TOTAL 0.2 mg/dL (0.2-1); BLOOD UREA NITROGEN 18.4 mg/dL (7-18); CALCIUM 8.9 mg/dL (8.5-10.1); CHLORIDE 105 mmol/L (98-107); CO2 28 mmol/L (21-32); CREATININE 0.8 mg/dL (0.55-1.3); GLUCOSE,RANDOM 95 mg/dL (74-106); LIPASE 186 U/L (73-393); POTASSIUM 4.3 mmol/L (3.5-5.1); SGOT/AST 14 U/L (15-37); SGPT/ALT 17 U/L (13-61); SODIUM 141 mmol/L (136-145); TOT PROT 7.1 g/dl (6.4-8.2)
--- NOTE | 2019-03-19 05:26 | PDOC ---
Attending Attestation - Resident Resident Name: Major Santana - ED Attending Attestation I have performed the following: I have examined & evaluated the patient, The case was reviewed & discussed with the resident, I agree w/resident's findings & plan, Exceptions are as noted - HPI HPI: 03/19/19 05:21 73 F with h/o HTN, HLD, DM, afib on eliquis, presenting to ED with abdominal pain. States pain is localized to her upper abdomen. Denies N/V. Denies diarrhea /constipation. Pain is worse with eating. Denies CP/SOB. Denies F/C. - Physicial Exam PE: 03/19/19 05:24 "GENERAL: Awake, alert, and fully oriented, in no acute distress. HEAD: No signs of trauma EYES: PERRLA, EOMI, sclera anicteric, conjunctiva clear ENT: Auricles normal inspection, hearing grossly normal, nares patent, oropharynx clear without exudates. Moist mucosa NECK: Nontender, no stepoffs, Normal ROM, supple, no lymphadenopathy, JVD, or masses LUNGS: Breath sounds equal, clear to auscultation bilaterally. No wheezes, and no crackles HEART: Regular rate and rhythm, normal S1 and S2, no murmurs, rubs or gallops ABDOMEN: + RUQ and LUQ TTP, normoactive bowel sounds. No guarding, no rebound. No masses EXTREMITIES: Normal range of motion, no edema. No clubbing or cyanosis. No cords, erythema, or tenderness NEUROLOGICAL: Cranial nerves II through XII intact. 5/5 strength and sensation in all extremities, Normal speech, normal gait, normal cerebellar function SKIN: Warm, Dry, normal turgor, no rashes or lesions noted."] - Medical Decision Making 03/19/19 05:26 73 F with upper abdominal pain. Has had prior cholecystectomy in the past. - Labs - CTAP 03/19/19 06:25 CT shows colitis of ascending colon Pt with negative lactate Discussed with surgery, Dr. Crook. No indication for surgical intervention. Pt admitted to hospitalist
[2019-03-19] MEDS ORDERED: SODIUM CHLORIDE 1,000 ML IV STA (06:06)
[2019-03-19 06:20] LABS: PH,URINE 7.5 (5.0-8.0); URINE APPEARANCE CLEAR; URINE BILIRUBIN NEGATIVE (NEGATIVE); URINE COLOR YELLOW; URINE GLUCOSE (UA) NEGATIVE (NEGATIVE); URINE KETONE NEGATIVE (NEGATIVE); URINE LEUK ESTERASE NEGATIVE (NEGATIVE); URINE NITRITE NEGATIVE (NEGATIVE); URINE PROTEIN NEGATIVE (NEGATIVE); URINE UROBILINOGEN 0.2 mg/dL (0.2-1.0)
[2019-03-19] MEDS ORDERED: PIPERACILLIN/TAZOB 4.5 GM 4.5 GM in DEXTROSE 5%-WATER 100 ML IVPB ONE (07:00)
[2019-03-19] MEDS ORDERED: DEXTROSE 5%-WATER 100 ML IVPB ONE (07:20)
[2019-03-19] MEDS ORDERED: PIPERACILLIN/TAZOBACTAM 4.5 GM VIAL IVPB ONE (07:20)
[2019-03-19] MEDS ORDERED: SODIUM CHLORIDE 1,000 ML IV SCH ×2 (07:45→22:30)
--- NOTE | 2019-03-19 07:56 | HP ---
CHIEF COMPLAINT: abdominal pain PCP: Johnnie Tomas HISTORY OF PRESENT ILLNESS: Patient is a 73 year old female with a history of HTN, HLD, DM, afib on eliquis , and anxiety who presents for abdominal pain. Patient states the pain began three days ago and it comes and goes. She had similar pain three months ago but did not do anything for it and it went away on its own. She does not recall eating anything abnormal. She had a colonoscopy three years ago, states they removed polyps but was told everything else is normal. Patient reports she is typically constipated and sometimes doesn't go until 3-4 dys. Patient recently had a BM and described it as hard and pellet like. Patient denies fever, chills , nausea, vomiting, headache, chest pain ER course was notable for: (1) (2) (3) Recent Travel: PAST MEDICAL HISTORY: HTN, HLD, DM, afib on eliquis, and anxiety PAST SURGICAL HISTORY: R shoulder, cholycystectomy Social History: Smoking: Alcohol: Drugs: Family History: Allergies Sulfa (Sulfonamide Antibiotics) Allergy (Verified 12/23/18 17:56) HOME MEDICATIONS: Home Medications Medication Instructions Recorded Apixaban [Eliquis] 5 mg PO BID 12/18/15 Metoprolol Succinate [Toprol XL -] 50 mg PO DAILY 12/18/15 Simvastatin 40 mg PO HS 01/23/16 Ergocalciferol (Vitamin D2) 50,000 units PO WEEKLY 07/29/18 [Vitamin D2] Valsartan/Hydrochlorothiazide 1 tab PO DAILY 07/29/18 [Valsartan-Hctz 80-12.5 mg Tab] Albuterol Sulfate Inhaler - 1 - 2 inh PO QID 12/23/18 [Ventolin Hfa Inhaler -] Dexlansoprazole [Dexilant] 60 mg PO DAILY 12/23/18 Docusate Sodium [Colace -] 100 mg PO TID PRN 12/23/18 Fluticasone Prop 0.05% Nasal 1 spray NS PRN 12/23/18 [Flonase -] Metformin HCl [Metformin HCl ER] 500 mg PO DAILY 12/23/18 Montelukast Sodium [Singulair] 10 mg PO DAILY 12/23/18 Nitroglycerin [Nitrostat] 0.4 mg SL ASDIR PRN 12/23/18 REVIEW OF SYSTEMS CONSTITUTIONAL: Absent: fever, chills, diaphoresis, generalized weakness, malaise, loss of appetite, weight change HEENT: Absent: rhinorrhea, nasal congestion, throat pain, throat swelling, difficulty swallowing, mouth swelling, ear pain, eye pain, visual changes CARDIOVASCULAR: Absent: chest pain, syncope, palpitations, irregular heart rate, lightheadedness , peripheral edema RESPIRATORY: Absent: cough, shortness of breath, dyspnea with exertion, orthopnea, wheezing, stridor, hemoptysis GASTROINTESTINAL: Absent: abdominal pain, abdominal distension, nausea, vomiting, diarrhea, constipation, melena, hematochezia GENITOURINARY: Absent: dysuria, frequency, urgency, hesitancy, hematuria, flank pain, genital pain MUSCULOSKELETAL: Absent: myalgia, arthralgia, joint swelling, back pain, neck pain SKIN: Absent: rash, itching, pallor HEMATOLOGIC/IMMUNOLOGIC: Absent: easy bleeding, easy bruising, lymphadenopathy, frequent infections ENDOCRINE: Absent: unexplained weight gain, unexplained weight loss, heat intolerance, cold intolerance NEUROLOGIC: Absent: headache, focal weakness or paresthesias, dizziness, unsteady gait, seizure, mental status changes, bladder or bowel incontinence PSYCHIATRIC: Absent: anxiety, depression, suicidal or homicidal ideation, hallucinations. PHYSICAL EXAMINATION Vital Signs - 24 hr 03/19/19 03/19/19 00:56 06:43 Temperature 98.2 F Pulse Rate 70 Pulse Rate [ 77 Left] Respiratory 18 16 Rate Blood Pressure 128/63 Blood Pressure 115/55 L [Left Arm] O2 Sat by Pulse 97 97 Oximetry (%) GENERAL: Awake, alert, and fully oriented, in no acute distress. HEAD: Normal with no signs of trauma. EYES: Pupils equal, round and reactive to light, extraocular movements intact, EARS, NOSE, THROAT: Moist mucous membranes. LUNGS: Breath sounds equal, clear to auscultation bilaterally. No wheezes, and no crackles. No accessory muscle use. HEART: Regular rate and rhythm, normal S1 and S2 without murmur, rub or gallop. ABDOMEN: tenderness at RUQ, soft, non distended MUSCULOSKELETAL: Normal range of motion at all joints. LOWER EXTREMITIES: 2+ pulses, warm, well-perfused. No calf tenderness. No peripheral edema. PSYCHIATRIC: Cooperative. Good eye contact. Appropriate mood and affect. SKIN: Warm, dry, normal turgor, no rashes or lesions noted, normal capillary refill. CBC, BMP 03/19/19 02:20 03/19/19 01:53 ASSESSMENT/PLAN: Patient is a 73 year old female with a history of HTN, HLD, DM, afib on eliquis , and anxiety who presents for abdominal pain. #Colitis - CT: colitis - will continue Levaquin - afebrile, no leukocytsos - Reviewed by surgery and no indication for surgery at this time - protonix 40 IV dialy #afib - EKG: - continue Eliquis #DM - SS - BGM ACHS #HTN - metoprolol,valsartan, HCTZ #DVT ppx - on eliquis FEN - 1 bag NS @ 50 - NPO except for meds Dispo: monitor on med surg - medications restarted as from last visit, pharmacy closed at this time Visit type - Emergency Visit Emergency Visit: No - New Patient This patient is new to me today: No - Critical Care Critical Care patient: No
[2019-03-19] MEDS ORDERED: ALBUTEROL SO4 8 GM HFA INHALER IH PRN (07:58)
[2019-03-19] MEDS ORDERED: FLUTICASONE PROP 0.05% 16 GM NASAL SPRAY NS SCH (08:00)
[2019-03-19] MEDS ORDERED: DOCUSATE SODIUM 100 MG CAPSULE (FP) PO PRN (08:00)
[2019-03-19] MEDS ORDERED: NITROGLYCERIN SUBLINGUAL 1/150 0.4 MG TAB SL PRN (08:00)
[2019-03-19] MEDS ORDERED: FLUTICASONE PROP 0.05% 16 GM NASAL SPRAY NS PRN (08:06)
--- NOTE | 2019-03-19 08:08 | PN ---
Teaching Attending Note Name of Resident: Helga Sandhu ATTENDING PHYSICIAN STATEMENT I saw and evaluated the patient. I reviewed the resident's note and discussed the case with the resident. I agree with the resident's findings and plan as documented. SUBJECTIVE: Patient is a 73 year old female with a history of HTN, HLD, DM, afib on eliquis , and anxiety who presents for abdominal pain. Patient states the pain began three days ago and it comes and goes. OBJECTIVE: Vital Signs Temperature 98.2 F 03/19/19 00:56 Pulse Rate 77 03/19/19 06:43 Respiratory Rate 16 03/19/19 06:43 Blood Pressure 115/55 L 03/19/19 06:43 O2 Sat by Pulse Oximetry (%) 97 03/19/19 06:43 GENERAL: The patient is awake, alert, and fully oriented, in no acute distress. HEAD: Normal with no signs of trauma. EYES: PERRL, extraocular movements intact, sclera anicteric, conjunctiva clear. ENT: Ears normal, oropharynx clear without exudates, moist mucous membranes. NECK: Trachea midline, full range of motion, supple. LUNGS: Breath sounds equal, clear to auscultation bilaterally, no wheezes, no crackles, no accessory muscle use. HEART: Regular rate and rhythm, S1, S2 positive , KINZA 2/6 , no rub or gallop. ABDOMEN: Soft, diffuse abdominal pain all quadrants , normoactive bowel sounds, voluntary guarding, no rebound, no hepatosplenomegaly, no masses. EXTREMITIES: 2+ pulses, warm, well-perfused, no edema. NEUROLOGICAL: Cranial nerves II through XII grossly intact. Normal speech, gait not observed. PSYCH: Normal mood, normal affect. SKIN: Warm, dry, normal turgor, no rashes or lesions noted CBCD WBC 8.5 K/mm3 (4.0-10.0) 03/19/19 02:20 RBC 4.01 M/mm3 (3.60-5.2) 03/19/19 02:20 Hgb 10.9 GM/dL (10.7-15.3) 03/19/19 02:20 Hct 34.2 % (32.4-45.2) 03/19/19 02:20 MCV 85.3 fl (80-96) 03/19/19 02:20 MCHC 31.9 g/dl (32.0-36.0) L 03/19/19 02:20 RDW 14.4 % (11.6-15.6) 03/19/19 02:20 Plt Count 214 K/MM3 (134-434) 03/19/19 02:20 MPV 9.0 fl (7.5-11.1) 03/19/19 02:20 CMP Sodium 141 mmol/L (136-145) 03/19/19 01:53 Potassium 4.3 mmol/L (3.5-5.1) 03/19/19 01:53 Chloride 105 mmol/L (98-107) 03/19/19 01:53 Carbon Dioxide 28 mmol/L (21-32) 03/19/19 01:53 Anion Gap 7 MMOL/L (8-16) L 03/19/19 01:53 BUN 18.4 mg/dL (7-18) H 03/19/19 01:53 Creatinine 0.8 mg/dL (0.55-1.3) 03/19/19 01:53 Random Glucose 95 mg/dL (74-106) 03/19/19 01:53 Calcium 8.9 mg/dL (8.5-10.1) 03/19/19 01:53 Total Bilirubin 0.2 mg/dL (0.2-1) 03/19/19 01:53 AST 14 U/L (15-37) L 03/19/19 01:53 ALT 17 U/L (13-61) 03/19/19 01:53 Alkaline Phosphatase 72 U/L (45-117) 03/19/19 01:53 Total Protein 7.1 g/dl (6.4-8.2) 03/19/19 01:53 Albumin 3.7 g/dl (3.4-5.0) 03/19/19 01:53 CARDIAC ENZYMES Creatine Kinase 83 U/L (26-192) 03/19/19 01:53 Troponin I < 0.02 ng/ml (0.00-0.05) 03/19/19 01:53 Current Medications Generic Name Dose Route Start Last Admin Trade Name Freq PRN Reason Stop Dose Admin Acetaminophen 650 mg 03/19/19 07:52 Tylenol - PO Q4H PRN PAIN 1-3 Albuterol Sulfate 1 puff 03/19/19 07:58 Ventolin Hfa Inhaler - IH QID PRN ASTHMA Apixaban 5 mg 03/19/19 10:00 Eliquis - PO BID [facility] Docusate Sodium 100 mg 03/19/19 08:00 Colace - PO TID PRN CONSTIPATION Fluticasone Propionate 1 spray 03/19/19 08:06 Flonase - NS PRN PRN NASAL CONGESTION Levofloxacin 500 mg in 100 mls @ 100 mls/hr 03/19/19 08:00 Levaquin 500 Mg Premixed Ivpb - IVPB DAILY [facility] Protocol Sodium Chloride 1,000 mls @ 50 mls/hr 03/19/19 07:45 Normal Saline - IV 03/20/19 03:44 ASDIR [facility] Insulin Aspart 1 vial 03/19/19 11:00 Novolog Vial Sliding Scale - SQ ACHS [facility] Protocol Metoprolol Succinate 50 mg 03/19/19 10:00 Toprol Xl - PO DAILY [facility] Montelukast Sodium 10 mg 03/19/19 22:00 Singulair - PO HS [facility] Nitroglycerin 0.4 mg 03/19/19 08:00 Nitrostat - SL Q5M PRN chest pain Non-Formulary Medication 40 mg 03/19/19 22:00 Simvastatin [Simvastatin] PO HS [facility] Non-Formulary Medication 1 tab 03/19/19 10:00 Valsartan/Hydrochlorothiazide [Valsartan-Hctz 80-12.5 Mg Tab] PO DAILY [facility] Pantoprazole Sodium 40 mg 03/19/19 10:00 Protonix Iv IVPUSH DAILY [facility] Home Medications Medication Instructions Recorded Apixaban [Eliquis] 5 mg PO BID 12/18/15 Metoprolol Succinate [Toprol XL -] 50 mg PO DAILY 12/18/15 Simvastatin 40 mg PO HS 01/23/16 Ergocalciferol (Vitamin D2) 50,000 units PO WEEKLY 07/29/18 [Vitamin D2] Valsartan/Hydrochlorothiazide 1 tab PO DAILY 07/29/18 [Valsartan-Hctz 80-12.5 mg Tab] Albuterol Sulfate Inhaler - 1 - 2 inh PO QID 12/23/18 [Ventolin Hfa Inhaler -] Dexlansoprazole [Dexilant] 60 mg PO DAILY 12/23/18 Docusate Sodium [Colace -] 100 mg PO TID PRN 12/23/18 Fluticasone Prop 0.05% Nasal 1 spray NS PRN 12/23/18 [Flonase -] Metformin HCl [Metformin HCl ER] 500 mg PO DAILY 12/23/18 Montelukast Sodium [Singulair] 10 mg PO DAILY 12/23/18 Nitroglycerin [Nitrostat] 0.4 mg SL ASDIR PRN 12/23/18 CT of abdomen: Ascending colitis ASSESSMENT AND PLAN: Patient is a 73 year old female with a history of HTN, HLD, DM, afib on eliquis , and anxiety who presents for abdominal pain. Patient states the pain began three days ago and it comes and goes. and was found to have ascending colitis. #Acute Colitis: CT: colitis on iv Levaquin and will add Flagyl , on Protonix #afib: continue Eliquis #T2DM: SS, BGM ACHS #HTN: metoprolol,valsartan. #DVT ppx: on eliquis
[2019-03-19] MEDS ORDERED: PATIENT'S OWN MEDICATION (NON-FORMULARY) (Valsartan/Hydrochlorothiazide [Valsartan-Hctz 80 PO SCH (10:00)
[2019-03-19] MEDS ORDERED: HEPARIN NA (PORCINE) 5,000 UNITS/ML 1ML VIAL SQ SCH (10:00)
[2019-03-19] MEDS: HYDROCHLOROTHIAZIDE 12.5 MG CAPSULE (FP) PO SCH (10:17)
[2019-03-19] MEDS: PANTOPRAZOLE SODIUM 40 MG VIAL IVPUSH SCH (10:18)
[2019-03-19] MEDS: VALSARTAN 80 MG TABLET (UD) PO SCH (10:18)
[2019-03-19] MEDS: APIXABAN 5 MG TABLET PO SCH ×2 (10:18→21:50)
[2019-03-19] MEDS: INSULIN SLIDING SCALE (NOVOLOG) 1 VIAL SQ SCH ×3 (11:26→22:06)
--- NOTE | 2019-03-19 13:03 | EKG ---
Test Reason : Blood Pressure : / mmHG Vent. Rate : 073 BPM Atrial Rate : 073 BPM P-R Int : 170 ms QRS Dur : 076 ms QT Int : 410 ms P-R-T Axes : 045 008 027 degrees QTc Int : 451 ms NORMAL SINUS RHYTHM NONSPECIFIC ST ABNORMALITY BORDERLINE ECG Confirmed by MD RUBIN, NYASIA ([id number]) on 03/19/2019 1:03:17 PM Referred By: Confirmed By:NYASIA CONKLIN MD
--- NOTE | 2019-03-19 17:51 | CONSULT ---
Consult Consult Specialty:: General surgery Reason for Consultation:: Colitis - History of Present Illness Chief Complaint: abdominal pain History of Present Illness: 73 yo female with a history of HTN, HLD, DM, afib on eliquis, and anxiety who presents for abdominal pain. Patient states the pain began three days ago and it comes and goes. She had similar pain three months ago but did not do anything for it and it went away on its own. She does not recall eating anything abnormal. She had a colonoscopy three years ago, states they removed polyps but was told everything else is normal. Patient reports she is typically constipated and sometimes doesn't go until 3-4 dys. Patient recently had a BM and described it as hard and pellet like. Patient denies fever, chills, nausea, vomiting, headache, chest pain, we were asked to assess. - History Source History Provided By: Patient, Medical Record Limitations to Obtaining History: No Limitations - Past Medical History Cardio/Vascular: Yes: AFIB, HTN, Hyperlipdemia ...: No Endocrine: Yes: Diabetes Mellitus - Past Surgical History Past Surgical History: Yes: Cholecystectomy, Hysterectomy - Alcohol/Substance Use Hx Alcohol Use: No - Smoking History Smoking history: Never smoked Have you smoked in the past 12 months: No Home Medications - Allergies Allergies/Adverse Reactions: Allergies Allergy/AdvReac Type Severity Reaction Status Date / Time Sulfa (Sulfonamide Allergy Verified 12/23/18 17:56 Antibiotics) - Home Medications Home Medications: Ambulatory Orders Apixaban [Eliquis] 5 mg PO BID 12/18/15 Metoprolol Succinate [Toprol XL -] 50 mg PO DAILY 12/18/15 Simvastatin 40 mg PO HS 01/23/16 Albuterol Sulfate Inhaler - [Ventolin HFA Inhaler -] 2 inh PO QID 12/23/18 Fluticasone Prop 0.05% Nasal [Flonase -] 1 spray NS BID 12/23/18 Metformin HCl [Metformin HCl ER] 500 mg PO DAILY 12/23/18 Montelukast Sodium [Singulair] 10 mg PO DAILY 12/23/18 Aspirin [ASA -] 81 mg PO DAILY 03/21/19 Docusate Sodium [Colace -] 200 mg PO HS PRN #60 capsule 03/21/19 Lactobacillus Acidophilus [Bacid -] 1 each PO DAILY #30 capsule 03/21/19 Levofloxacin [Levaquin] 500 mg PO DAILY #5 tablet 03/21/19 Lisinopril [Zestril] 2.5 mg PO DAILY 03/21/19 Polyethylene Glycol 3350 [Miralax 119 gm Btl -] 17 gm PO BID #1 bottle 03/21/19 metroNIDAZOLE [Flagyl -] 250 mg PO TID #15 tablet 03/21/19 Review of Systems - Review of Systems Constitutional: denies: Chills, Fever Eyes: denies: Blind Spots, Recent Change in Vision HENT: denies: Difficult Swallowing, Throat Pain Neck: denies: Decreased ROM, Pain on Movement Cardiovascular: denies: Chest Pain, Palpitations Respiratory: reports: SOB. denies: Cough Gastrointestinal: reports: Constipation. denies: Abdominal Pain, Diarrhea Genitourinary: denies: Burning, Discharge, Dysuria Breasts: reports: No Symptoms Reported. denies: Pain Musculoskeletal: denies: Muscle Pain, Muscle Weakness Integumentary: denies: Bruising, Change in Color, Pallor Neurological: denies: Seizure, Syncope Endocrine: denies: Intolerance to Cold, Unexplained Weight Gain Hematology/Lymphatic: denies: Easily Bruised, Excessive Bleeding Psychiatric: denies: Anxiety, Depression Physical Exam Vital Signs: Vital Signs Temperature 98.0 F 03/19/19 14:53 Pulse Rate 70 03/19/19 14:53 Respiratory Rate 16 03/19/19 06:43 Blood Pressure 111/57 L 03/19/19 14:53 O2 Sat by Pulse Oximetry (%) 97 03/19/19 08:00 Constitutional: Yes: Well Nourished, No Distress, Calm, Obese Eyes: Yes: Conjunctiva Clear, EOM Intact HENT: Yes: Atraumatic, Normocephalic Neck: Yes: Supple, Trachea Midline Cardiovascular: Yes: Regular Rate and Rhythm, S1, S2 Respiratory: Yes: Regular, CTA Bilaterally Gastrointestinal: Yes: Normal Bowel Sounds, Soft, Abdomen, Obese, Tenderness. No: Tenderness, Epigastrium, Tenderness, Rebound ...Rectal Exam: Yes: Deferred Renal/: No: CVA Tenderness - Left, CVA Tenderness - Right Breast(s): No: Mass, Nipple Inversion, Skin Changes Musculoskeletal: No: Muscle Pain, Muscle Weakness Extremities: No: Cool, Cyanosis, External Rotation Edema: No Peripheral Pulses WNL: Yes Integumentary: No: Jaundice, Rash, Skin Tear Neurological: Yes: Alert, Oriented Psychiatric: Yes: Alert, Oriented Labs: CBC, BMP 03/19/19 02:20 03/19/19 01:53 Imaging - Results Cat Scan: Report Reviewed, Image Reviewed Problem List - Problems (1) Colitis Assessment/Plan: 73 yo female with MMP and colitis, no sign of acute bowel ischemia Diet as tolerated IVF hydratoion IV antibiotics No acute surgical intevention Thank you for the opportunity to participate in the care of this patient. Code(s): K52.9 - NONINFECTIVE GASTROENTERITIS AND COLITIS, UNSPECIFIED (2) Afib Code(s): I48.91 - UNSPECIFIED ATRIAL FIBRILLATION Qualifiers: Atrial fibrillation type: paroxysmal Qualified Code(s): I48.0 - Paroxysmal atrial fibrillation (3) DM (diabetes mellitus) Code(s): E11.9 - TYPE 2 DIABETES MELLITUS WITHOUT COMPLICATIONS Qualifiers: Diabetes mellitus type: type 2 Diabetes mellitus penitentiary insulin use: without terminal operator use Diabetes mellitus complication status: without complication Qualified Code(s): E11.9 - Type 2 diabetes mellitus without complications (4) HLD (hyperlipidemia) Code(s): E78.5 - HYPERLIPIDEMIA, UNSPECIFIED Qualifiers: Hyperlipidemia type: pure hypercholesterolemia Qualified Code(s): E78.00 - Pure hypercholesterolemia, unspecified; E78.0 - Pure hypercholesterolemia (5) HTN (hypertension) Code(s): I10 - ESSENTIAL (PRIMARY) HYPERTENSION Qualifiers: Hypertension type: essential hypertension Qualified Code(s): I10 - Essential (primary) hypertension
[2019-03-19] MEDS: MONTELUKAST NA 10 MG TABLET PO SCH (21:50)
[2019-03-19] MEDS: ATORVASTATIN CA 20 MG TABLET (FP) PO SCH (21:50)
[2019-03-19] MEDS ORDERED: MELATONIN 5 MG TABLETS PO ONE (22:13)
[2019-03-20] MEDS ORDERED: ACETAMINOPHEN 325 MG TABLET (FP) PO ONE (03:06)
[2019-03-20] MEDS: ACETAMINOPHEN 325 MG TABLET (FP) PO PRN ×2 (03:57→09:23)
[2019-03-20] MEDS: INSULIN SLIDING SCALE (NOVOLOG) 1 VIAL SQ SCH ×4 (06:37→21:28)
[2019-03-20 07:30] LABS: BASO % 0.6 % (0-2.0); EOS % 4.4 % (0-4.5); HEMATOCRIT 32.6 % (32.4-45.2); HEMOGLOBIN 10.6 GM/dL (10.7-15.3); LYMPH % 35.3 % (8-40); MCH 27.7 pg (25.7-33.7); MCHC 32.5 g/dl (32.0-36.0); MEAN CELL VOLUME 85.3 fl (80-96); MEAN PLT VOLUME 9.2 fl (7.5-11.1); MONO % 13.3 % (3.8-10.2); NEUT % 46.4 % (42.8-82.8); PLATELET COUNT 191 K/MM3 (134-434); RBC 3.83 M/mm3 (3.60-5.2); RDW 14.1 % (11.6-15.6); WHITE BLOOD COUNT 4.9 K/mm3 (4.0-10.0)
[2019-03-20 07:43] LABS: ALBUMIN 3.2 g/dl (3.4-5.0); BILIRUBIN,TOTAL 0.5 mg/dL (0.2-1); BLOOD UREA NITROGEN 8.7 mg/dL (7-18); CALCIUM 9.4 mg/dL (8.5-10.1); CREATININE 0.7 mg/dL (0.55-1.3); MAGNESIUM 2.2 mg/dL (1.8-2.4); PHOSPHOROUS 4.1 mg/dL (2.5-4.9); POTASSIUM 4.4 mmol/L (3.5-5.1); TOT PROT 6.1 g/dl (6.4-8.2)
[2019-03-20] MEDS ORDERED: PT OWN MED DRAWER 7, Y5N ONE (09:08)
[2019-03-20] MEDS: HYDROCHLOROTHIAZIDE 12.5 MG CAPSULE (FP) PO SCH (09:22)
[2019-03-20] MEDS: VALSARTAN 80 MG TABLET (UD) PO SCH (09:22)
[2019-03-20] MEDS: APIXABAN 5 MG TABLET PO SCH ×2 (09:22→21:28)
[2019-03-20] MEDS: PANTOPRAZOLE SODIUM 40 MG VIAL IVPUSH SCH (09:22)
[2019-03-20] MEDS ORDERED: ONDANSETRON 4 MG/2 ML VIAL IVPUSH ONE (15:06)
[2019-03-20] MEDS ORDERED: IBUPROFEN 600 MG TABLET (FP) PO ONE (15:11)
--- NOTE | 2019-03-20 15:53 | PN ---
Physical Exam: SUBJECTIVE: Patient seen and examined at the bedside. No acute events overnight except for a headache which was treated with tylenol and melatonin for sleep. Pt has been having some anxiety. OBJECTIVE: Vital Signs Period Temp Pulse Resp BP Sys/Degroot Pulse Ox Last 24 Hr 97.6 F-98.1 F 70-70 18-18 111-130/70-72 97-99 GENERAL: The patient is awake, alert, and fully oriented, in no acute distress. HEAD: Normal with no signs of trauma. EYES: extraocular movements grossly intact, sclera anicteric, conjunctiva clear. No ptosis. NECK: grossly full range of motion, supple. LUNGS: Breath sounds equal, clear to auscultation bilaterally, no wheezes, no crackles, no accessory muscle use. HEART: Regular rate and rhythm, S1, S2 without murmur, rub or gallop. ABDOMEN: Soft, nontender, nondistended, hyperactive bowel sounds, no guarding, no rebound. EXTREMITIES: 2+ pulses, warm, well-perfused, no edema. NEUROLOGICAL: Cranial nerves II through XII grossly intact. Normal speech, gait not observed. PSYCH: Normal mood, normal affect. SKIN: Warm, dry, no rashes or lesions noted Laboratory Results - last 24 hr CBC, BMP 03/20/19 06:30 03/20/19 06:30 Current Medications Acetaminophen (Tylenol -) 650 mg PO Q4H PRN PRN Reason: PAIN 1-3 Last Admin: 03/20/19 09:23 Dose: 650 mg Albuterol Sulfate (Ventolin Hfa Inhaler -) 1 puff IH Q6H PRN PRN Reason: ASTHMA Apixaban (Eliquis -) 5 mg PO BID [facility] Last Admin: 03/20/19 09:22 Dose: 5 mg Atorvastatin Calcium (Lipitor -) 20 mg PO HS [facility] Last Admin: 03/19/19 21:50 Dose: 20 mg Docusate Sodium (Colace -) 100 mg PO TID PRN PRN Reason: CONSTIPATION Fluticasone Propionate (Flonase -) 1 spray NS DAILY PRN PRN Reason: NASAL CONGESTION Hydrochlorothiazide (Hctz -) 12.5 mg PO DAILY [facility] Last Admin: 03/20/19 09:22 Dose: 12.5 mg Levofloxacin (Levaquin 500 Mg Premixed Ivpb -) 500 mg in 100 mls @ 100 mls/hr IVPB DAILY [facility]; Protocol Last Admin: 03/20/19 09:22 Dose: 100 mls/hr Sodium Chloride (Normal Saline -) 1,000 mls @ 50 mls/hr IV ASDIR [facility] Stop: 03/20/19 18:29 Last Admin: 03/20/19 04:03 Dose: 50 mls/hr Metronidazole (Flagyl 500mg Premixed Ivpb -) 500 mg in 100 mls @ 100 mls/hr IVPB Q8H-IV [facility] Last Admin: 03/20/19 12:06 Dose: 100 mls/hr Insulin Aspart (Novolog Vial Sliding Scale -) 1 vial SQ ACHS [facility]; Protocol Last Admin: 03/20/19 12:05 Dose: Not Given Metoprolol Succinate (Toprol Xl -) 50 mg PO DAILY [facility] Last Admin: 03/20/19 09:22 Dose: 50 mg Montelukast Sodium (Singulair -) 10 mg PO HS [facility] Last Admin: 03/19/19 21:50 Dose: 10 mg Nitroglycerin (Nitrostat -) 0.4 mg SL Q5M PRN PRN Reason: chest pain Pantoprazole Sodium (Protonix Iv) 40 mg IVPUSH DAILY [facility] Last Admin: 03/20/19 09:22 Dose: 40 mg Valsartan (Diovan -) 80 mg PO DAILY [facility] Last Admin: 03/20/19 09:22 Dose: 80 mg ASSESSMENT/PLAN: Patient is a 73 year old female with a history of HTN, HLD, DM, afib on eliquis , and anxiety who presents for abdominal pain. Patient states the pain began three days ago and it comes and goes. She had similar pain three months ago but did not do anything for it and it went away on its own. She does not recall eating anything abnormal. She had a colonoscopy three years ago, states they removed polyps but was told everything else is normal. Patient reports she is typically constipated and sometimes doesn't go until 3-4 dys. Patient recently had a BM and described it as hard and pellet like. Patient denies fever, chills , nausea, vomiting, headache, chest pain. #Colitis - CT showed diffuse thickening of ascending and proximal transverse colon with colitis. Inflammation vs infectious cannot r/o ischemia. No free air or fluid. - US shows mild fatty infiltration of liver, pneumobilia, nl bile duct size and s/p chohlecystectomy. - CXR shows weak inspiration, lungs clear. - Ua Cx pending. - continue IV levaquin and flagyl 500 was restarted today. - tylenol, motrin for pain - surgery Dr diggs says there is no need for surgery its not ischemic in presentation. #Afib - EKG normal Qt and no longer in afib. - c/w eliquis #DM -sliding scale - BGM ACHS #HTN - continue metoprolol, valsartan, HCTZ. DVT PPX- on eliquis FEN- - 1 bag NS at 50. - monitoring electrolytes - was advanced initially to soft diet but pt became gaseous and in pain so we downgraded her diet to clear liquids only. Dispo: plan is to d/c her tomorrow if she is no longer having the gaseous pain and tolerates an advanced diet. Visit type - Emergency Visit Emergency Visit: No - New Patient This patient is new to me today: No - Critical Care Critical Care patient: No - Discharge Referral Referred to [facility] No ATTENDING PHYSICIAN STATEMENT I saw and evaluated the patient. I reviewed the resident's note and discussed the case with the resident. I agree with the resident's findings and plan as documented. SUBJECTIVE: OBJECTIVE: ASSESSMENT AND PLAN:
[2019-03-20] MEDS ORDERED: INSULIN (NOVOLOG) ASPART 100 UNITS/ML 10ML VIAL ONE (16:46)
--- NOTE | 2019-03-20 19:12 | PN ---
Teaching Attending Note Name of Resident: Wil Merrill ATTENDING PHYSICIAN STATEMENT I saw and evaluated the patient. I reviewed the resident's note and discussed the case with the resident. I agree with the resident's findings and plan as documented. SUBJECTIVE: Patient is c/o having diffuse abdominal pain. OBJECTIVE: Vital Signs Temperature 97.6 F 03/20/19 09:16 Pulse Rate 70 03/20/19 09:16 Respiratory Rate 18 03/20/19 09:16 Blood Pressure 130/70 03/20/19 09:16 O2 Sat by Pulse Oximetry (%) 99 03/20/19 09:00 GENERAL: The patient is awake, alert, and fully oriented, in no acute distress. HEAD: Normal with no signs of trauma. EYES: PERRL, extraocular movements intact, sclera anicteric, conjunctiva clear. ENT: Ears normal, oropharynx clear without exudates, moist mucous membranes. NECK: Trachea midline, full range of motion, supple. LUNGS: Breath sounds equal, clear to auscultation bilaterally, no wheezes, no crackles, no accessory muscle use. HEART: Regular rate and rhythm, S1, S2 positive , KINZA 2/6 , no rub or gallop. ABDOMEN: Soft, diffuse abdominal pain all quadrants , normoactive bowel sounds, voluntary guarding, no rebound, no hepatosplenomegaly, no masses. EXTREMITIES: 2+ pulses, warm, well-perfused, no edema. NEUROLOGICAL: Cranial nerves II through XII grossly intact. Normal speech, gait not observed. PSYCH: Normal mood, normal affect. SKIN: Warm, dry, normal turgor, no rashes or lesions noted CBCD WBC 4.9 K/mm3 (4.0-10.0) 03/20/19 06:30 RBC 3.83 M/mm3 (3.60-5.2) 03/20/19 06:30 Hgb 10.6 GM/dL (10.7-15.3) L 03/20/19 06:30 Hct 32.6 % (32.4-45.2) 03/20/19 06:30 MCV 85.3 fl (80-96) 03/20/19 06:30 MCHC 32.5 g/dl (32.0-36.0) 03/20/19 06:30 RDW 14.1 % (11.6-15.6) 03/20/19 06:30 Plt Count 191 K/MM3 (134-434) 03/20/19 06:30 MPV 9.2 fl (7.5-11.1) 03/20/19 06:30 CMP Sodium 141 mmol/L (136-145) 03/20/19 06:30 Potassium 4.4 mmol/L (3.5-5.1) 03/20/19 06:30 Chloride 106 mmol/L (98-107) 03/20/19 06:30 Carbon Dioxide 31 mmol/L (21-32) 03/20/19 06:30 Anion Gap 4 MMOL/L (8-16) L 03/20/19 06:30 BUN 8.7 mg/dL (7-18) 03/20/19 06:30 Creatinine 0.7 mg/dL (0.55-1.3) 03/20/19 06:30 Random Glucose 91 mg/dL (74-106) 03/20/19 06:30 Calcium 9.4 mg/dL (8.5-10.1) 03/20/19 06:30 Total Bilirubin 0.5 mg/dL (0.2-1) 03/20/19 06:30 AST 9 U/L (15-37) L 03/20/19 06:30 ALT 13 U/L (13-61) 03/20/19 06:30 Alkaline Phosphatase 61 U/L (45-117) 03/20/19 06:30 Total Protein 6.1 g/dl (6.4-8.2) L 03/20/19 06:30 Albumin 3.2 g/dl (3.4-5.0) L 03/20/19 06:30 CARDIAC ENZYMES Creatine Kinase 83 U/L (26-192) 03/19/19 01:53 Troponin I < 0.02 ng/ml (0.00-0.05) 03/19/19 01:53 Current Medications Generic Name Dose Route Start Last Admin Trade Name Freq PRN Reason Stop Dose Admin Acetaminophen 650 mg 03/19/19 07:52 03/20/19 09:23 Tylenol - PO 650 mg Q4H PRN Administration PAIN 1-3 Albuterol Sulfate 1 puff 03/19/19 07:58 Ventolin Hfa Inhaler - IH Q6H PRN ASTHMA Apixaban 5 mg 03/19/19 10:00 03/20/19 09:22 Eliquis - PO 5 mg BID DEANNA Administration Atorvastatin Calcium 20 mg 03/19/19 22:00 03/19/19 21:50 Lipitor - PO 20 mg HS DEANNA Administration Docusate Sodium 100 mg 03/19/19 08:00 03/20/19 18:22 Colace - PO 100 mg TID PRN Administration CONSTIPATION Fluticasone Propionate 1 spray 03/19/19 08:06 Flonase - NS DAILY PRN NASAL CONGESTION Levofloxacin 500 mg in 100 mls @ 100 mls/hr 03/19/19 08:00 03/20/19 09:22 Levaquin 500 Mg Premixed Ivpb - IVPB 100 mls/hr DAILY DEANNA Administration Protocol Metronidazole 500 mg in 100 mls @ 100 mls/hr 03/20/19 11:30 03/20/19 18:22 Flagyl 500mg Premixed Ivpb - IVPB 100 mls/hr Q8H-IV DEANNA Administration Insulin Aspart 1 vial 03/19/19 11:00 03/20/19 17:00 Novolog Vial Sliding Scale - SQ Not Given ACHS DEANNA Protocol Metoprolol Succinate 50 mg 03/19/19 10:00 03/20/19 09:22 Toprol Xl - PO 50 mg DAILY DEANNA Administration Montelukast Sodium 10 mg 03/19/19 22:00 03/19/19 21:50 Singulair - PO 10 mg HS DEANNA Administration Nitroglycerin 0.4 mg 03/19/19 08:00 Nitrostat - SL Q5M PRN chest pain Pantoprazole Sodium 40 mg 03/19/19 10:00 03/20/19 09:22 Protonix Iv IVPUSH 40 mg DAILY DEANNA Administration Valsartan 80 mg 03/19/19 10:00 03/20/19 09:22 Diovan - PO 80 mg DAILY DEANNA Administration Home Medications Medication Instructions Recorded RX: Apixaban [Eliquis] 5 mg PO BID 12/18/15 RX: Metoprolol Succinate [Toprol 50 mg PO DAILY 12/18/15 XL -] RX: Simvastatin 40 mg PO HS 01/23/16 RX: Ergocalciferol (Vitamin D2) 50,000 units PO WEEKLY 07/29/18 [Vitamin D2] RX: Valsartan/Hydrochlorothiazide 1 tab PO DAILY 07/29/18 [Valsartan-Hctz 80-12.5 mg Tab] Albuterol Sulfate Inhaler - 1 - 2 inh PO QID 12/23/18 [Ventolin Hfa Inhaler -] Dexlansoprazole [Dexilant] 60 mg PO DAILY 12/23/18 Fluticasone Prop 0.05% Nasal 1 spray NS PRN 12/23/18 [Flonase -] Metformin HCl [Metformin HCl ER] 500 mg PO DAILY 12/23/18 Montelukast Sodium [Singulair] 10 mg PO DAILY 12/23/18 Nitroglycerin [Nitrostat] 0.4 mg SL ASDIR PRN 12/23/18 RX: Docusate Sodium [Colace -] 100 mg PO TID PRN 12/23/18 CT of abdomen: Ascending colitis ASSESSMENT AND PLAN: Patient is a 73 year old female with a history of HTN, HLD, DM, afib on eliquis , and anxiety who presents for abdominal pain. Patient states the pain began three days ago and it comes and goes. and was found to have ascending colitis. #Acute Colitis: continue IV antibiotic day #2 iv Levaquin and Flagyl , on Protonix #afib: continue Eliquis #T2DM: SS, BGM ACHS #HTN: metoprolol,valsartan. will hold off Hctz for now #DVT ppx: on eliquis
[2019-03-20] MEDS: ATORVASTATIN CA 20 MG TABLET (FP) PO SCH (21:28)
[2019-03-20] MEDS: MONTELUKAST NA 10 MG TABLET PO SCH (21:28)
[2019-03-21] MEDS: INSULIN SLIDING SCALE (NOVOLOG) 1 VIAL SQ SCH ×2 (06:10→13:03)
[2019-03-21 07:49] LABS: BASO % 0.5 % (0-2.0); EOS % 3.2 % (0-4.5); HEMATOCRIT 32.1 % (32.4-45.2); HEMOGLOBIN 10.4 GM/dL (10.7-15.3); LYMPH % 33.5 % (8-40); MCH 27.4 pg (25.7-33.7); MCHC 32.5 g/dl (32.0-36.0); MEAN CELL VOLUME 84.4 fl (80-96); MEAN PLT VOLUME 9.2 fl (7.5-11.1); MONO % 13.9 % (3.8-10.2); NEUT % 48.9 % (42.8-82.8); PLATELET COUNT 215 K/MM3 (134-434); RDW 14.1 % (11.6-15.6); WHITE BLOOD COUNT 4.9 K/mm3 (4.0-10.0)
[2019-03-21 08:12] LABS: ALBUMIN 3.3 g/dl (3.4-5.0); BILIRUBIN,TOTAL 0.4 mg/dL (0.2-1); BLOOD UREA NITROGEN 9.6 mg/dL (7-18); CALCIUM 9.2 mg/dL (8.5-10.1); CREATININE 0.7 mg/dL (0.55-1.3); POTASSIUM 4.1 mmol/L (3.5-5.1); TOT PROT 6.4 g/dl (6.4-8.2)
[2019-03-21] MEDS ORDERED: PT OWN MED DRAWER 7, Y5N ONE (08:55)
[2019-03-21] MEDS: APIXABAN 5 MG TABLET PO SCH (09:17)
[2019-03-21] MEDS: VALSARTAN 80 MG TABLET (UD) PO SCH (09:17)
--- NOTE | 2019-03-21 09:37 | CON.GI ---
Consult Consult Specialty:: GI Referred by:: Helga Sandhu Reason for Consultation:: Abdominal pain , Diverticulitis on CT scan - History of Present Illness Chief Complaint: Abdominal pain - History Source History Provided By: Patient Limitations to Obtaining History: Other (spanich speaking) - Past Medical History CASE MANAGEMENT SPECIALIST: No: Alzheimer's, CVA Cardio/Vascular: Yes: AFIB, HTN, Hyperlipdemia Gastrointestinal: Yes: Constipation, GI Bleed (bright blood when she clean her self or some times see it in the bath room ), Hemorrhoids (internal and external once every 3 months ) Hepatobiliary: No: Cirrhosis Renal/: No: Renal Failure, Cancer, Hematuria ...: No Heme/Onc: Yes: Anemia Psych: Yes: Anxiety Endocrine: Yes: Diabetes Mellitus - Past Surgical History Past Surgical History: Yes: Cholecystectomy, Hysterectomy, Tubal Ligation - Alcohol/Substance Use Hx Alcohol Use: No History of Substance Use: reports: None - Smoking History Smoking history: Former smoker (3cig /day for 10 years) Have you smoked in the past 12 months: No - Social History History of Recent Travel: No Home Medications - Allergies Allergies/Adverse Reactions: Allergies Allergy/AdvReac Type Severity Reaction Status Date / Time Sulfa (Sulfonamide Allergy Verified 12/23/18 17:56 Antibiotics) - Home Medications Home Medications: Ambulatory Orders Apixaban [Eliquis] 5 mg PO BID 12/18/15 Metoprolol Succinate [Toprol XL -] 50 mg PO DAILY 12/18/15 Simvastatin 40 mg PO HS 01/23/16 Ergocalciferol (Vitamin D2) [Vitamin D2] 50,000 units PO WEEKLY 07/29/18 Albuterol Sulfate Inhaler - [Ventolin Hfa Inhaler -] 2 inh PO QID 12/23/18 Dexlansoprazole [Dexilant] 60 mg PO DAILY 12/23/18 Docusate Sodium [Colace -] 100 mg PO TID PRN 12/23/18 Fluticasone Prop 0.05% Nasal [Flonase -] 1 spray NS BID 12/23/18 Metformin HCl [Metformin HCl ER] 500 mg PO DAILY 12/23/18 Montelukast Sodium [Singulair] 10 mg PO DAILY 12/23/18 Nitroglycerin [Nitrostat] 0.4 mg SL ASDIR PRN 12/23/18 Aspirin [ASA -] 81 mg PO DAILY 03/21/19 Lisinopril [Zestril] 2.5 mg PO DAILY 03/21/19 Meloxicam 15 mg PO DAILY 03/21/19 Plecanatide [Trulance] 3 mg PO DAILY 03/21/19 Psyllium Husk [Reguloid] 1 tablet PO TID 03/21/19 Review of Systems - Review of Systems Constitutional: reports: Chills Neck: denies: Stiffness Cardiovascular: denies: Chest Pain, Edema Respiratory: reports: SOB on Exertion Gastrointestinal: reports: Abdominal Pain, Bloating, Constipation, Nausea, Rectal Bleeding Genitourinary: denies: Burning, Dysuria, Flank Pain Neurological: denies: Change in Speech, Confusion Physical Exam-GI Vital Signs: Vital Signs Temperature 98.5 F 03/21/19 06:53 Pulse Rate 40 L 03/21/19 06:53 Respiratory Rate 20 03/21/19 06:53 Blood Pressure 134/79 03/21/19 06:53 O2 Sat by Pulse Oximetry (%) 98 03/20/19 20:40 Labs: CBC, BMP 03/21/19 07:12 03/21/19 07:12 INR, PTT INR 1.02 (0.83-1.09) 03/19/19 01:53
[2019-03-21] MEDS ORDERED: POLYETHYLENE GLYCOL 3350 119 GM BTL PO SCH (10:00)
[2019-03-21 11:22] VITALS: BP 140/70; PULSE 88; TEMP 98.7
[2019-03-21] MEDS: PANTOPRAZOLE SODIUM 40 MG VIAL IVPUSH SCH (11:56)
--- NOTE | 2019-03-21 13:05 | PN ---
Teaching Attending Note Name of Resident: Wil Merrill ATTENDING PHYSICIAN STATEMENT I saw and evaluated the patient. I reviewed the resident's note and discussed the case with the resident. I agree with the resident's findings and plan as documented. SUBJECTIVE: Patient is feeling better with no acute distress. OBJECTIVE: Vital Signs Temperature 98.7 F 03/21/19 10:00 Pulse Rate 88 03/21/19 10:00 Respiratory Rate 18 03/21/19 10:00 Blood Pressure 140/70 03/21/19 10:00 O2 Sat by Pulse Oximetry (%) 98 03/21/19 10:00 GENERAL: The patient is awake, alert, and fully oriented, in no acute distress. HEAD: Normal with no signs of trauma. EYES: PERRL, extraocular movements intact, sclera anicteric, conjunctiva clear. ENT: Ears normal, oropharynx clear without exudates, moist mucous membranes. NECK: Trachea midline, full range of motion, supple. LUNGS: Breath sounds equal, clear to auscultation bilaterally, no wheezes, no crackles, no accessory muscle use. HEART: Regular rate and rhythm, S1, S2 positive , KINZA 2/6 , no rub or gallop. ABDOMEN: Soft, NT, no rebound , normoactive bowel sounds,voluntary guarding, no rebound, no hepatosplenomegaly, no masses. EXTREMITIES: 2+ pulses, warm, well-perfused, no edema. NEUROLOGICAL: Cranial nerves II through XII grossly intact. Normal speech, gait not observed. PSYCH: Normal mood, normal affect. SKIN: Warm, dry, normal turgor, no rashes or lesions noted CBCD WBC 4.9 K/mm3 (4.0-10.0) 03/21/19 07:12 RBC 3.80 M/mm3 (3.60-5.2) 03/21/19 07:12 Hgb 10.4 GM/dL (10.7-15.3) L 03/21/19 07:12 Hct 32.1 % (32.4-45.2) L 03/21/19 07:12 MCV 84.4 fl (80-96) 03/21/19 07:12 MCHC 32.5 g/dl (32.0-36.0) 03/21/19 07:12 RDW 14.1 % (11.6-15.6) 03/21/19 07:12 Plt Count 215 K/MM3 (134-434) 03/21/19 07:12 MPV 9.2 fl (7.5-11.1) 03/21/19 07:12 CMP Sodium 144 mmol/L (136-145) 03/21/19 07:12 Potassium 4.1 mmol/L (3.5-5.1) 03/21/19 07:12 Chloride 107 mmol/L (98-107) 03/21/19 07:12 Carbon Dioxide 33 mmol/L (21-32) H 03/21/19 07:12 Anion Gap 4 MMOL/L (8-16) L 03/21/19 07:12 BUN 9.6 mg/dL (7-18) 03/21/19 07:12 Creatinine 0.7 mg/dL (0.55-1.3) 03/21/19 07:12 Random Glucose 104 mg/dL (74-106) 03/21/19 07:12 Calcium 9.2 mg/dL (8.5-10.1) 03/21/19 07:12 Total Bilirubin 0.4 mg/dL (0.2-1) 03/21/19 07:12 AST 11 U/L (15-37) L 03/21/19 07:12 ALT 14 U/L (13-61) 03/21/19 07:12 Alkaline Phosphatase 61 U/L (45-117) 03/21/19 07:12 Total Protein 6.4 g/dl (6.4-8.2) 03/21/19 07:12 Albumin 3.3 g/dl (3.4-5.0) L 03/21/19 07:12 CARDIAC ENZYMES Creatine Kinase 83 U/L (26-192) 03/19/19 01:53 Troponin I < 0.02 ng/ml (0.00-0.05) 03/19/19 01:53 Current Medications Generic Name Dose Route Start Last Admin Trade Name Freq PRN Reason Stop Dose Admin Acetaminophen 650 mg 03/19/19 07:52 03/20/19 09:23 Tylenol - PO 650 mg Q4H PRN Administration PAIN 1-3 Albuterol Sulfate 1 puff 03/19/19 07:58 Ventolin Hfa Inhaler - IH Q6H PRN ASTHMA Apixaban 5 mg 03/19/19 10:00 03/21/19 09:17 Eliquis - PO 5 mg BID DEANNA Administration Atorvastatin Calcium 20 mg 03/19/19 22:00 03/20/19 21:28 Lipitor - PO 20 mg HS DEANNA Administration Docusate Sodium 100 mg 03/19/19 08:00 03/20/19 18:22 Colace - PO 100 mg TID PRN Administration CONSTIPATION Fluticasone Propionate 1 spray 03/19/19 08:06 Flonase - NS DAILY PRN NASAL CONGESTION Levofloxacin 500 mg in 100 mls @ 100 mls/hr 03/19/19 08:00 03/21/19 09:18 Levaquin 500 Mg Premixed Ivpb - IVPB 100 mls/hr DAILY DEANNA Administration Protocol Metronidazole 500 mg in 100 mls @ 100 mls/hr 03/20/19 11:30 03/21/19 11:00 Flagyl 500mg Premixed Ivpb - IVPB 100 mls/hr Q8H-IV DEANNA Administration Insulin Aspart 1 vial 03/19/19 11:00 03/21/19 13:03 Novolog Vial Sliding Scale - SQ Not Given ACHS DEANNA Protocol Metoprolol Succinate 50 mg 03/19/19 10:00 03/21/19 09:17 Toprol Xl - PO 50 mg DAILY DEANNA Administration Montelukast Sodium 10 mg 03/19/19 22:00 03/20/19 21:28 Singulair - PO 10 mg HS DEANNA Administration Nitroglycerin 0.4 mg 03/19/19 08:00 Nitrostat - SL Q5M PRN chest pain Pantoprazole Sodium 40 mg 03/19/19 10:00 03/21/19 11:56 Protonix Iv IVPUSH 40 mg DAILY DEANNA Administration Polyethylene Glycol 17 gm 03/21/19 10:00 03/21/19 11:56 Miralax (For Daily Use) - PO 17 grams DAILY DEANNA Administration Valsartan 80 mg 03/19/19 10:00 03/21/19 09:17 Diovan - PO 80 mg DAILY DEANNA Administration Home Medications Medication Instructions Recorded Apixaban [Eliquis] 5 mg PO BID 12/18/15 Metoprolol Succinate [Toprol XL -] 50 mg PO DAILY 12/18/15 Simvastatin 40 mg PO HS 01/23/16 Albuterol Sulfate Inhaler - 2 inh PO QID 12/23/18 [Ventolin HFA Inhaler -] Fluticasone Prop 0.05% Nasal 1 spray NS BID 12/23/18 [Flonase -] Metformin HCl [Metformin HCl ER] 500 mg PO DAILY 12/23/18 Montelukast Sodium [Singulair] 10 mg PO DAILY 12/23/18 Aspirin [ASA -] 81 mg PO DAILY 03/21/19 Docusate Sodium [Colace -] 200 mg PO HS PRN #60 capsule 03/21/19 Lactobacillus Acidophilus [Bacid -] 1 each PO DAILY #30 capsule 03/21/19 Levofloxacin [Levaquin] 500 mg PO DAILY #5 tablet 03/21/19 Lisinopril [Zestril] 2.5 mg PO DAILY 03/21/19 Polyethylene Glycol 3350 [Miralax 17 gm PO BID #1 bottle 03/21/19 119 gm Btl -] metroNIDAZOLE [Flagyl -] 250 mg PO TID #15 tablet 03/21/19 CT of abdomen: Ascending colitis ASSESSMENT AND PLAN: Patient is a 73 year old female with a history of HTN, HLD, DM, afib on eliquis , and anxiety who presents for abdominal pain. Patient states the pain began three days ago and it comes and goes. and was found to have ascending colitis. #Acute Colitis: continue IV antibiotic day #3 s/p iv Levaquin and Flagyl , red continue with oral antibiotic for total of 7 days. added Bacid as well to her regimen. #afib: continue Eliquis #T2DM: continue metformin #HTN: metoprolol, zestril continue , discontinue Hctz for now #DVT ppx: on eliquis discharge patient home.
--- NOTE | 2019-03-21 13:32 | DS ---
Physical Exam: SUBJECTIVE: Patient seen and examined OBJECTIVE: Vital Signs Period Temp Pulse Resp BP Sys/Degroot Pulse Ox Last 24 Hr 98.0 F-98.7 F 40-88 18-20 134-140/70-85 98-98 PHYSICAL EXAM GENERAL: The patient is awake, alert, and fully oriented, in no acute distress. HEAD: Normal with no signs of trauma. EYES: PERRL, extraocular movements intact, sclera anicteric, conjunctiva clear. ENT: Ears normal, nares patent, oropharynx clear without exudates, moist mucous membranes. NECK: Trachea midline, full range of motion, supple. LUNGS: Breath sounds equal, clear to auscultation bilaterally, no wheezes, no crackles, no accessory muscle use. HEART: Regular rate and rhythm, S1, S2 without murmur, rub or gallop. ABDOMEN: Soft, nontender, nondistended, normoactive bowel sounds, no guarding, no rebound, no hepatosplenomegaly, no masses. EXTREMITIES: 2+ pulses, warm, well-perfused, no edema. NEUROLOGICAL: Cranial nerves II through XII grossly intact. Normal speech, gait not observed. PSYCH: Normal mood, normal affect. SKIN: Warm, dry, normal turgor, no rashes or lesions noted. LABS Laboratory Results - last 24 hr 03/20/19 03/20/19 03/21/19 16:58 21:25 06:07 WBC RBC Hgb Hct MCV MCH MCHC RDW Plt Count MPV Absolute Neuts (auto) Neutrophils % Lymphocytes % Monocytes % Eosinophils % Basophils % Nucleated RBC % Sodium Potassium Chloride Carbon Dioxide Anion Gap BUN Creatinine Est GFR (CKD-EPI)AfAm Est GFR (CKD-EPI)NonAf POC Glucometer 174 83 107 Random Glucose Calcium Total Bilirubin AST ALT Alkaline Phosphatase Total Protein Albumin 03/21/19 03/21/19 03/21/19 07:12 07:12 11:52 WBC 4.9 RBC 3.80 Hgb 10.4 L Hct 32.1 L MCV 84.4 MCH 27.4 MCHC 32.5 RDW 14.1 Plt Count 215 MPV 9.2 Absolute Neuts (auto) 2.4 Neutrophils % 48.9 Lymphocytes % 33.5 Monocytes % 13.9 H Eosinophils % 3.2 Basophils % 0.5 Nucleated RBC % 0 Sodium 144 Potassium 4.1 Chloride 107 Carbon Dioxide 33 H Anion Gap 4 L BUN 9.6 Creatinine 0.7 Est GFR (CKD-EPI)AfAm 100.32 Est GFR (CKD-EPI)NonAf 86.56 POC Glucometer 97 Random Glucose 104 Calcium 9.2 Total Bilirubin 0.4 AST 11 L ALT 14 Alkaline Phosphatase 61 Total Protein 6.4 Albumin 3.3 L Images: CT: diffuse thickening of ascending and proximal transverse colon with colitis. US- showed mild fatty infiltration of liver, pneumobilia, nl bile duct size, and s/p cholecystectomy. CXR- shows weak inspiration, lungs clear. UA Cx- pending HOSPITAL COURSE: Date of Admission:03/19/19 This is a 73 y/o F with a history of HTN, HLD, DM, AFIB on eliquis, and anxiety who was admitted for acute colitis. Patient was placed on IV levaquin and flagyl. She has been afebrile, without any leukocytosis present. She will continue her levaquin and flagyl for 5 more days. -We told her to continue all her medications as prescribed. Patient has constipation and is to take miralax, colase and bacid as needed. - We informed her that she should return to the hospital if she experiences any worsening of: diarrhea, constipation, chest pain, shortness of breath, and fever. - She should follow up with her PCP and GI doctor within 1 week. Date of Discharge: 03/21/19 Minutes to complete discharge: 35 Discharge Summary Reason For Visit: COLITIS Condition: Good - Instructions Diet, Activity, Other Instructions: - You were admitted for having inflammation of your intestines. We did images ( CT scan) that showed this inflamed intestine. - We had a surgeon see you and he did not recommend surgery. - We treated you with antibiotics and your inflamed intestines (colitis) are no longer inflamed. Please take the antibiotics below to complete treatment: Levaquin 500mg once a day for 5 more days Flagyl 250 mg three times a day for 5 more days Miralax 17gm 2x per day Colace 200mg po qhs - You should return to your primary care physician in 1 week. -Please see yout Resident Hall Director Dr.Thomas Lyons in [facility]. - Please continue all your medicines at home as prescribed. - Please return to the emergency room if you have any worsening: abdominal pain , chest pain, nausea, or headaches, fever. Referrals: Serena Rothman [Other] Johnnie Tomas MD [Primary Care Provider] - Disposition: HOME - Home Medications Comprehensive Discharge Medication List: Ambulatory Orders Apixaban [Eliquis] 5 mg PO BID 12/18/15 Metoprolol Succinate [Toprol XL -] 50 mg PO DAILY 12/18/15 Simvastatin 40 mg PO HS 01/23/16 Albuterol Sulfate Inhaler - [Ventolin HFA Inhaler -] 2 inh PO QID 12/23/18 Fluticasone Prop 0.05% Nasal [Flonase -] 1 spray NS BID 12/23/18 Metformin HCl [Metformin HCl ER] 500 mg PO DAILY 12/23/18 Montelukast Sodium [Singulair] 10 mg PO DAILY 12/23/18 Aspirin [ASA -] 81 mg PO DAILY 03/21/19 Docusate Sodium [Colace -] 200 mg PO HS PRN #60 capsule 03/21/19 Lactobacillus Acidophilus [Bacid -] 1 each PO DAILY #30 capsule 03/21/19 Levofloxacin [Levaquin] 500 mg PO DAILY #5 tablet 03/21/19 Lisinopril [Zestril] 2.5 mg PO DAILY 03/21/19 Polyethylene Glycol 3350 [Miralax 119 gm Btl -] 17 gm PO BID #1 bottle 03/21/19 metroNIDAZOLE [Flagyl -] 250 mg PO TID #15 tablet 03/21/19 This patient is new to me today: No Emergency Visit: No Critical Care patient: No - Discharge Referral Referred to [facility] No ATTENDING PHYSICIAN STATEMENT I saw and evaluated the patient. I reviewed the resident's note and discussed the case with the resident. I agree with the resident's findings and plan as documented. SUBJECTIVE: OBJECTIVE: ASSESSMENT AND PLAN:
== END 2019-03-21 14:40 | disposition home or self-care (01) | DRG 392 ==
LOC: JER 00:13 → JERBED 06:25 → J6S 07:16
PROVIDERS: ADMIT Internal Medicine; ATTEND Internal Medicine
DX: K52.9 Noninfective gastroenteritis and colitis, unspecified (principal); I10 Essential (primary) hypertension; E11.9 Type 2 diabetes mellitus without complications; I48.91 Unspecified atrial fibrillation; F41.9 Anxiety disorder, unspecified; K21.9 Gastro-esophageal reflux disease without esophagitis; K76.0 Fatty (change of) liver, not elsewhere classified; E78.5 Hyperlipidemia, unspecified
CPT/HCPCS: 36415; 71045-TC-FY; 74177-TC; 76705-TC; 80053; 81003; 82550; 82962; 83605; 83690; 83735; 84100; 84484; 85025; 85610; 85730; 87077; 87086; 87186; 93005; 93010; 99282-25; J0131; J7030

== ENCOUNTER 2022-10-23 05:20 | Observation (INO) | payer OTHER ==
[2022-10-23 05:36] VITALS: BMI 32.1
[2022-10-23] MEDS ORDERED: ASPIRIN 81 MG CHEWABLE TABLETS PO ONE (06:32)
[2022-10-23] MEDS ORDERED: ONDANSETRON 4 MG/2 ML VIAL IVPUSH ONE (06:32)
[2022-10-23] MEDS ORDERED: ONDANSETRON 4 MG/2 ML VIAL ONE (06:57)
[2022-10-23] MEDS ORDERED: ASPIRIN 81 MG CHEWABLE TABLETS ONE ×2 (06:57→10:31)
[2022-10-23 07:17] LABS: BASO % 0.6 % (0-2.0); EOS % 2.9 % (0-4.5); HEMATOCRIT 34.2 % (32.4-45.2); HEMOGLOBIN 11.4 GM/dL (10.7-15.3); LYMPH % 26.8 % (8-40); MCH 27.2 pg (25.7-33.7); MCHC 33.2 g/dl (32.0-36.0); MEAN CELL VOLUME 81.9 fl (80-96); MONO % 14.3 % (3.8-10.2); NEUT % 55.4 % (42.8-82.8); PLATELET COUNT 184 10^3/uL (134-434); RBC 4.17 M/mm3 (3.60-5.2); RDW 16.2 % (11.6-15.6); WHITE BLOOD COUNT 6.4 K/mm3 (4.0-10.0)
[2022-10-23 07:27] LABS: ACTIVATED PTT 30.8 SECONDS (25.2-36.5)
[2022-10-23 07:39] LABS: CALCIUM 8.9 mg/dL (8.5-10.1)
[2022-10-23 07:40] LABS: ALBUMIN 3.8 g/dl (3.4-5.0); BLOOD UREA NITROGEN 21.5 mg/dL (7-18)
[2022-10-23 07:43] LABS: CREATININE 0.8 mg/dL (0.55-1.3)
[2022-10-23 07:44] LABS: BILIRUBIN,TOTAL 0.4 mg/dL (0.2-1)
[2022-10-23 07:48] LABS: N-TERMINAL BNP 128.5 pg/ml (5-450)
[2022-10-23 08:37] LABS: INR 1.2 (0.83-1.09); PROTHROMBIN TIME (PATIENT) 13.9 SEC (9.7-13.0)
[2022-10-23] MEDS ORDERED: ENOXAPARIN NA (PORCINE) 40 MG/0.4 ML DISP.SYRIN SQ SCH (10:00)
[2022-10-23] MEDS ORDERED: ASPIRIN 81 MG CHEWABLE TABLETS PO SCH (10:00)
[2022-10-23] MEDS ORDERED: ENOXAPARIN NA (PORCINE) 40 MG/0.4 ML DISP.SYRIN SQ ONE (10:32)
[2022-10-23] MEDS: INSULIN SLIDING SCALE (NOVOLOG) 1 VIAL SQ SCH ×2 (10:36→18:09)
[2022-10-23] MEDS ORDERED: SERTRALINE HCL 50 MG TABLET (FP) PO SCH (10:45)
[2022-10-23] MEDS ORDERED: APIXABAN 5 MG TABLET PO SCH ×2 (10:45→22:00)
[2022-10-23] MEDS ORDERED: ALBUTEROL SO4 HFA INHALER IH PRN (11:17)
[2022-10-23] MEDS ORDERED: DEXLANSOPRAZOLE PO SCH (11:30)
[2022-10-23] MEDS ORDERED: PANTOPRAZOLE 40 MG TABLET PO SCH (11:52)
[2022-10-23 17:43] VITALS: BP 118/79; PULSE 77; RESP 22; TEMP 98.5
[2022-10-23] MEDS ORDERED: ACETAMINOPHEN 325 MG TABLET (FP) PO ONE (17:44)
[2022-10-23] MEDS ORDERED: ACETAMINOPHEN 325 MG TABLET (FP) ONE (18:00)
[2022-10-23] MEDS ORDERED: MIRTAZAPINE 15 MG TABLET (FP) PO SCH (22:00)
[2022-10-23] MEDS ORDERED: ATORVASTATIN CA 20 MG TABLET (FP) PO SCH (22:00)
[2022-10-24] MEDS ORDERED: VALSARTAN 80 MG TABLET PO SCH (10:00)
== END 2022-10-23 18:34 | disposition home or self-care (01) ==
LOC: JER 05:20 → JERBED 09:01
PROVIDERS: ADMIT Internal Medicine; ATTEND Internal Medicine
PROC: 3E023GC Introduction of Other Therapeutic Substance into Muscle, Percutaneous Approach (ICD-10-PCS; principal; 2022-10-23)
PROC: 3E033GC Introduction of Other Therapeutic Substance into Peripheral Vein, Percutaneous Approach (ICD-10-PCS; 2022-10-23)
DX: I48.91 Unspecified atrial fibrillation (principal); I47.0 Re-entry ventricular arrhythmia; E11.9 Type 2 diabetes mellitus without complications; I10 Essential (primary) hypertension; E78.5 Hyperlipidemia, unspecified; I35.1 Nonrheumatic aortic (valve) insufficiency; Z95.0 Presence of cardiac pacemaker; R10.13 Epigastric pain; K52.9 Noninfective gastroenteritis and colitis, unspecified
CPT/HCPCS: 0241U-QW; 36415; 71045-TC-FY; 80053; 82962; 83880; 84484; 85025; 85610; 85730; 93005; 93010; 96372; 96374; 99285-25; G0378

== ENCOUNTER 2023-02-05 04:14 | Day surgery (SDC) | payer OTHER ==
[2023-01-29 15:08] VITALS: BMI 29.2
[2023-02-05] MEDS ORDERED: BUPIVACAINE HCL/PF 0.75% 10 ML VIAL ONE ×2 (07:25)
[2023-02-05] MEDS ORDERED: LIDOCAINE HCL/PF 1% SDV 5ML VIAL ONE ×2 (07:25)
[2023-02-05] MEDS ORDERED: BUPIVACAINE HCL/PF 0.75% 10 ML VIAL NR ONE ×3 (11:01→11:19)
[2023-02-05] MEDS ORDERED: LIDOCAINE 1% P/F 10 MG/ML VIAL INF ONE ×2 (11:01→11:19)
[2023-02-05] MEDS ORDERED: ACETAMINOPHEN 500 MG TABLET (FP) PO PRN (11:09)
[2023-02-05 11:48] VITALS: RESP 20
[2023-02-05 14:16] VITALS: BP 146/66; PULSE 76; TEMP 98.4
== END 2023-02-05 13:30 | disposition home or self-care (01) ==
LOC: JASU-SURG 04:14
PROVIDERS: ATTEND Pain Medicine Pain Medicine
PROC: 3E0T3BZ Introduction of Anesthetic Agent into Peripheral Nerves and Plexi, Percutaneous Approach (ICD-10-PCS; principal; 2023-02-05 11:00)
DX: M47.816 Spondylosis without myelopathy or radiculopathy, lumbar region (principal)
CPT/HCPCS: 76000-TC-FY